=== PATIENT | male | born 1960 | race Caucasian/White ===

== ENCOUNTER 2021-05-12 12:58 | Observation (INO) | payer OTHER, SELFPAY ==
[2021-05-12] VITALS (14 sets, daily range): BP systolic 118–168; BP diastolic 62–98; PULSE 94–108; RESP 20–34; TEMP 36.4–36.7; O2SAT 86–100
--- NOTE | ~2021-05-12 | XR_ITS ---
EXAMINATION: XR chest 1V portable EXAM DATE: 05/12/2021 13:23 INDICATION: Difficulty breathing. History COPD. TECHNIQUE: Portable AP frontal chest x-ray was obtained. There is no prior study for comparison. FINDINGS: The lungs are hyperinflated which can be seen with chronic obstructive pulmonary disease (a clinical diagnosis of functional impairment), but is not diagnostic of it. The cardiomediastinal rasheed houette is prominent but magnified on this AP technique. No confluent consolidation, pneumothorax or pleural effusion suspected. Old right clavicular fracture. IMPRESSION: 1. Cardiomegaly. 2. Hyperinflation. Reviewed, dictated and finalized at location A.
--- NOTE | 2021-05-12 13:17 | ECG_ITS ---
Measurements Intervals [place] Rate: 99 P: 85 IN: 128 QRS: -20 QRSD: 110 T: 86 QT: 366 QTc: 471 Interpretive Statements SINUS RHYTHM INTRAVENTRICULAR CONDUCTION DELAY DELAYED PRECORDIAL R/S TRANSITION MINIMAL Q WAVES- INFERIOR LEADS NONSPECIFIC T-WAVE ABNORMALITY- HIGH LATERAL LEADS BASELINE ARTIFACT- I, II, III, AVR, AVL, AVF, V1-V6 BORDERLINE ECG Electronically Signed On 05-14-2021 17:02:14 CDT by Mamadou Burroughs D.O.
[2021-05-12] MEDS: IPRATROPIUM BR 0.02% INH SOLN 0.5 MG/2.5 ML VIAL INHALATION ×2 (13:34→21:12)
[2021-05-12] MEDS: ALBUTEROL SULFATE NEB 2.5 MG/0.5 ML INH 5 MG INHALATION ×2 (13:34→21:04)
--- NOTE | 2021-05-12 13:35 | ED.SOB ---
HPI - SOB/Dyspnea General Chief Complaint: Shortness of Breath/Dyspnea Stated Complaint: sob Time Seen by Provider: 05/12/21 13:13 History of Present Illness HPI Narrative: Patient is a 60-year-old male who presents ER with shortness of breath. Worsening over the last couple weeks. Associate with productive cough. Sputum is green. Reports night sweats. No documented fevers. Denies sinus congestion or sore throat. Has been using nebulizer treatments at home without relief. Patient has known COPD. Patient did not receive Covid vaccination. No known sick contacts. Related Data Allergies Allergy/AdvReac Type Severity Reaction Status Date / Time No Known Allergies Allergy Verified 05/12/21 13:23 Review of Systems Review of Systems: All systems reviewed & are unremarkable except as noted in HPI and below Constitutional: Constitutional: Denies chills, Reports fatigue and Denies fever(s) Comments: Night sweats ENT: Denies nasal congestion and Denies sore throat Cardiovascular: Cardiovascular: Denies chest pain, Denies rapid heart rate and Denies radiating jaw, neck or arm pain Respiratory: Respiratory: Reports chest congestion, Reports cough, Reports dyspnea and Reports wheezing Gastrointestinal: Gastrointestinal: Denies abdominal pain, Denies nausea and Denies vomiting PMFSH Past Medical History Medical History (Updated 05/12/21 @ 16:41 by Chase Stanford MD) COPD (chronic obstructive pulmonary disease) Surgical History Surgical History (Updated 05/12/21 @ 13:37 by Chase Stanford MD) No pertinent past surgical history Social History Social History (Updated 05/12/21 @ 13:38 by Chase Stanford MD) Smoking status: Current every day smoker Gender identity (if verbalized by the patient): Male Exam Narrative: Exam Narrative: GENERAL: Uncomfortable appearing and diaphoretic, well-nourished. HEAD: Normocephalic, atraumatic. ENT: Mucous membranes moist. CHEST: Mild respiratory distress with diffuse rails/wheezing. HEART: Tachycardic regular. Normal peripheral pulses. ABDOMEN: Soft, nontender, nondistended. EXTREMITIES: Normal range of motion. No edema. SKIN: Warm, diaphoretic, no rash. NEURO: Alert and oriented x3. PSYCH: Normal mood and affect. Course Course Emergency Course: Hypoxic after nebulizer treatment as well. Admit for observation and IV steroids. Vital Signs Vital signs: Vital Signs Temperature 97.6 F 05/12/21 13:18 Pulse Rate 102 H 05/12/21 13:18 Respiratory Rate 24 H 05/12/21 13:18 Blood Pressure 118/62 05/12/21 13:18 Pulse Oximetry 88 L 05/12/21 13:18 Temperature 97.6 F 05/12/21 13:18 Pulse Rate 99 05/12/21 16:18 Respiratory Rate 22 H 05/12/21 16:18 Blood Pressure 130/82 05/12/21 16:18 Pulse Oximetry 92 05/12/21 16:18 MDM - SOB/Dyspnea Lab Data Result diagrams: 05/12/21 14:03 05/12/21 14:02 Labs: Lab Results 05/12/21 05/12/21 05/12/21 Range/Units 14:02 14:03 14:28 WBC 10.0 (4.5-10.0) K/mm3 RBC 5.44 (4.6-6.20) M/mm3 Hgb 16.7 (14.0-18.0) g/dL Hct 52.1 H (42.0-52.0) % MCV 95.8 (80-100) fl MCH 30.7 (26-34) pg MCHC 32.1 (32-36) g/dl RDW 13.9 (11.5-14.5) % Plt Count 356 (150-375) k/mm3 MPV 9.6 (7.4-10.4) fl Immature Gran % (Auto) 0.4 (0-0.5) % Neut % (Auto) 72.5 (45.5-73.1) % Lymph % (Auto) 15.8 L (18.3-44.2) % [place] % (Auto) 10.6 H (2.6-8.5) % Eos % (Auto) 0.4 (0-4.4) % Baso % (Auto) 0.3 (0.2-1.2) % Lymph # (Auto) 1.58 (0.9-3.2) K/mm3 [place] # (Auto) 1.1 H (0.1-0.6) K/mm3 Eos # (Auto) 0.0 (0-0.3) K/mm3 Baso # (Auto) 0.0 (0.0-0.1) K/mm3 Abs Immat Gran (auto) 0.04 H (0.00-0.031) K/mm3 Absolute Neuts (auto) 7.2 H (1.3-6.7) K/mm3 Absolute Nucleated RBC 0.0 (0.0-0.012) K/mm3 Nucleated RBC % 0.0 (0.0-0.2) % Sodium 144 (137-145) mmol/L Potassium 3.8 (3.4-5.0) mmol/L Chloride 102 (98-
[2021-05-12] MEDS: IPRATROPIUM BR 0.02% INH SOLN 0.5 MG/2.5 ML VIAL 1.5 MG INHALATION (13:52)
[2021-05-12] MEDS: ALBUTEROL SULFATE NEB 2.5 MG/0.5 ML INH 15 MG INHALATION (13:52)
[2021-05-12 14:10] LABS: Basophils Percent Auto 0.3 % (0.2-1.2); Eosinophils Percent Auto 0.4 % (0-4.4); Hematocrit 52.1 % (42.0-52.0); Hemoglobin 16.7 g/dL (14.0-18.0); Immature Granulocyte Absolute 0.04 K/mm3 (0.00-0.031); Immature Granulocyte Percent A 0.4 % (0-0.5); Lymphocytes Absolute Auto 1.58 K/mm3 (0.9-3.2); Lymphocytes Percent Auto 15.8 % (18.3-44.2); Mean Corpuscular HGB Conc 32.1 g/dl (32-36); Mean Corpuscular Hemoglobin 30.7 pg (26-34); Mean Corpuscular Volume 95.8 fl (80-100); Mean Platelet Volume 9.6 fl (7.4-10.4); Monocytes Absolute Auto 1.1 K/mm3 (0.1-0.6); Monocytes Percent Auto 10.6 % (2.6-8.5); Neutrophils Absolute Auto 7.2 K/mm3 (1.3-6.7); Neutrophils Percent Auto 72.5 % (45.5-73.1); Platelet Count Result 356 k/mm3 (150-375); Red Blood Count 5.44 M/mm3 (4.6-6.20); Red Cell Distribution Width 13.9 % (11.5-14.5)
[2021-05-12 14:23] LABS: Anion Gap 12 mmol/L (8-16); Blood Urea Nitrogen 8 mg/dL (9-20); Calcium 9.2 mg/dL (8.4-10.2); Carbon Dioxide 30 mmol/L (22-30); Chloride 102 mmol/L (98-107); Estimated CRCL calculation 113 ml/min; Estimated Glomerular Filt Rate > 60; Glucose 136 mg/dL (75-110); Potassium 3.8 mmol/L (3.4-5.0); Sodium 144 mmol/L (137-145)
[2021-05-12 14:44] LABS: Lactic Acid Reflex 0.7 mmol/L (0.7-2.1)
[2021-05-12] MEDS: methylPREDNISolone SOD SUCC 125 MG VIAL IV PUSH (15:15)
--- NOTE | 2021-05-12 15:33 | PC.NURSE ---
ORDERED MEAL FOR PT
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
[2021-05-12 17:03] LABS: Alveolar/Arterial O2 Gradient 70.5 mmHg; Carboxyhemoglobin 4.1 % THb (0-2.0); Fractional Inspired Oxygen 28 %; HCO3 ABG 33.7 mEq/l (22.0-26.0); Methemoglobin ABG 0.3 %THb (0-1.5); Oxygen Content ABG 20.2 %vol (16.0-22.0); PO2 ABG 52.1 mmHg (80.0-100.0); PO2 FiO2 Ratio Arterial Blood 1.86 %; Reduced Hemoglobin 11.6 %THb (0-5.0); Total Hemoglobin 17.2 g/dL (12.0-18.0)
[2021-05-12 17:06] LABS: Oxygen Saturation ABG 83.4 % (95.0-100.0); PCO2 ABG 65.3 mmHg (35.0-45.0)
[2021-05-12 17:07] LABS: Site Drawn RIGHT BRACHIAL
[2021-05-12 17:08] LABS: Device NASAL CANNULA
--- NOTE | 2021-05-12 17:51 | PC.NURSE ---
This patient, Alonzo Michel, was admitted to [facility] Surg Room 327-01. Patient/family oriented to hospital policies and general routines including ID bracelet, bed and alarms, visiting hours, pain management, procedures, bathroom and other care routines, personal items, smoking policy, room service/diet, and visiting hours. Information on how to activate the Rapid Response Team has been discussed. Patient/Family are encouraged to report perceived risks to care and to ask questions if they do not understand what they are told or what they should do.
[2021-05-12] MEDS: methylPREDNISolone SOD SUCC 125 MG VIAL 60 MG IV PUSH (20:24)
[2021-05-12] MEDS: guaiFENesin 12 HR 600 MG TABCR PO (22:34)
[2021-05-12] MEDS: AMOXICILLIN/CLAVULANATE K 875-125 MG TAB 1 TABLET PO (22:36)
[2021-05-12] MEDS: THIAMINE HCL 200 MG/2 ML VIAL 100 MG IV PUSH (22:36)
[2021-05-13] VITALS (11 sets, daily range): BP systolic 120; BP diastolic 88; PULSE 99–119; RESP 20; TEMP 36.1; O2SAT 90–93
[2021-05-13] MEDS: IPRATROPIUM BR 0.02% INH SOLN 0.5 MG/2.5 ML VIAL INHALATION ×2 (02:44→07:53)
[2021-05-13] MEDS: ALBUTEROL SULFATE NEB 2.5 MG/0.5 ML INH 5 MG INHALATION ×2 (02:44→07:53)
[2021-05-13] MEDS: methylPREDNISolone SOD SUCC 125 MG VIAL 60 MG IV PUSH ×2 (03:27→09:36)
[2021-05-13 06:28] LABS: Hematocrit 50.4 % (42.0-52.0); Hemoglobin 16.1 g/dL (14.0-18.0); Mean Corpuscular HGB Conc 31.9 g/dl (32-36); Mean Corpuscular Hemoglobin 31.3 pg (26-34); Mean Corpuscular Volume 97.9 fl (80-100); Mean Platelet Volume 9.5 fl (7.4-10.4); Platelet Count Result 353 k/mm3 (150-375); Red Blood Count 5.15 M/mm3 (4.6-6.20); Red Cell Distribution Width 13.5 % (11.5-14.5); White Blood Count 11.5 K/mm3 (4.5-10.0)
[2021-05-13 07:29] LABS: Alanine Aminotransferase 21 U/L (4-50); Albumin Level 4.2 g/dL (3.5-5.1); Alkaline Phosphatase 94 U/L (38-126); Anion Gap 11 mmol/L (8-16); Aspartate Amino Transferase 21 U/L (17-59); Bilirubin,Total 0.2 mg/dL (0.2-1.3); Blood Urea Nitrogen 15 mg/dL (9-20); Calcium 9.6 mg/dL (8.4-10.2); Carbon Dioxide 26 mmol/L (22-30); Chloride 105 mmol/L (98-107); Estimated CRCL calculation 100 ml/min; Estimated Glomerular Filt Rate > 60; Glucose 142 mg/dL (75-110); Magnesium 2.2 mg/dL (1.6-2.3); Potassium 4.8 mmol/L (3.4-5.0); Sodium 142 mmol/L (137-145)
[2021-05-13] MEDS: AMOXICILLIN/CLAVULANATE K 875-125 MG TAB 1 TABLET PO (09:35)
[2021-05-13] MEDS: guaiFENesin 12 HR 600 MG TABCR PO (09:35)
[2021-05-13] MEDS: FOLIC ACID 1 MG TABLET PO (09:35)
[2021-05-13] MEDS: THIAMINE HCL 100 MG TABLET PO (09:36)
[2021-05-13] MEDS: THERAPEUTIC MULTIVITAMINS/MINERALS TAB (*BKC) 1 TABLET PO (09:36)
--- NOTE | 2021-05-13 10:06 | PM.DS ---
DS: Admitting Diagnosis Admitting Diagnosis Admitting Diagnosis: COPD Exacerbation DS: Discharge Diagnosis Discharge Diagnosis (1) Acute exacerbation of chronic obstructive airways disease: Code(s): J44.1 - Chronic obstructive pulmonary disease with (acute) exacerbation Status: Acute (2) Tobacco dependence: Code(s): F17.200 - Nicotine dependence, unspecified, uncomplicated Status: Acute (3) Cardiomegaly: Code(s): I51.7 - Cardiomegaly Status: Acute (4) Hypoxia: Code(s): R09.02 - Hypoxemia Status: Acute (5) Alcohol abuse: Code(s): F10.10 - Alcohol abuse, uncomplicated Status: Acute DS: Summary Hospital Course Reason for hospitalization: Dyspnea Hospital Course: Date of admission: 05/12/21 Date of discharge: 05/13/21 Alonzo Michel is a pleasant 60-year-old male smoker with COPD and alcohol abuse who presented to the emergency department on 05/12/21 with complaints of shortness of breath. He has chronic FERRERA and is not very ambulatory due to this. His dyspnea worsened over the past several weeks and over the past 2-3 days prior to admission, he was frequently using his albuterol inhaler to the point where he ran out. Upon presentation to the emergency department, he was noted to be hypoxic down to 88%, he was mildly tachypneic and tachycardic, afebrile, CBC and BMP unremarkable, and CXR showed cardiomegaly with hyperinflation. He was admitted to the hospitalist service for further evaluation and management. He was treated with IV solumedrol and nebulized breathing treatments. He was also started on Augmentin given new onset of purulent sputum. His wheezing improved and he will continue a PO prednisone course for 5 days. He was prescribed albuterol and guaifenesin as well. Continue augmentin to complete 7 day course. He was weaned from supplemental O2 and home oxygen evaluation was performed with no oxygen requirements at rest or with activity. Regarding his cardiomegaly, an echocardiogram was ordered though this was not able to be completed due to the weekend. He will need to arrange this as an outpatient, as we discussed. I educated him on smoking cessation for 7 minutes and he verbalized understanding. He did express interest in quitting smoking. Additionally, he drinks 5-10 beers nightly about 5 days a week. 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 He is trying to remove himself from the work situation and feels this will help him stop smoking and drinking. He did not have any alcohol withdrawal symptoms and was monitored with CIWA scores. He was started on thiamine and folic acid daily. The patient had to leave promptly to attend a memorial for his who recently passed. He was feeling better and wheezing significantly improved. We discussed at length worrisome signs and symptoms for which to return. He was informed to immediately return to the ER should any of his symptoms worsen. He does not have a primary care provider and needs to establish. He was given contact information for the on-call primary care physician and he states he will call first thing Friday to make an appointment. He was discharged in hemodynamically stable condition on 05/13/21. Status at Discharge Functional status at discharge: independent ambulation Overall status at discharge: patient is progressing back to baseline Time Spent with Patient Time attestation: Total time spent providing and/or coordinating discharge services: 45 minutes Time spent: Greater than 30 minutes Exam Narrative: Exam Narrative: Mr. Michel is a well-nourished, well-appearing 60-year-old male who is sitting up in bed. He appears comfortable and is in NARD. Neuro: awake, alert and oriented x4, speech clear, no focal neuro deficits noted HEENMT: normocephalic, atraumatic, EOMI, sclerae anicteric, moist oral mucosa, tongue midline, nares patent Neck: supple, no lymphadenopathy Respiratory: post expir
== END 2021-05-13 10:27 | disposition home or self-care (01) ==
LOC: ANHED 13:28 → ANH3MEDSUR 16:26
PROVIDERS: Physician Assistant; Admitting Provider Internal Medicine; Emergency Provider Emergency Medicine; PCP Family Medicine; Visit Provider Physician Assistant
DX: J44.1 Chronic obstructive pulmonary disease with (acute) exacerbation (principal); R06.02 Shortness of breath; J44.9 Chronic obstructive pulmonary disease, unspecified; F17.210 Nicotine dependence, cigarettes, uncomplicated; I51.7 Cardiomegaly; F10.10 Alcohol abuse, uncomplicated; R09.02 Hypoxemia
CPT/HCPCS: 36415; 36600; 71045; 80048; 80053; 82375; 82805; 83050; 83605; 83735; 85025; 85027; 93005; 94618; 94640; 96374; 96375; 96376; 99285; A9270; G0378; G0379; J2930; J3411

== ENCOUNTER 2021-05-14 10:52 | Inpatient (IN) | payer OTHER, SELFPAY ==
[2021-05-14] VITALS (50 sets, daily range): BP systolic 112–221; BP diastolic 80–155; PULSE 76–128; RESP 13–34; TEMP 36.2–36.6; O2SAT 83–100; BMI 34.9
--- NOTE | ~2021-05-14 | XR_ITS ---
XR chest ET placement DATE: 05/14/2021 18:02 INDICATION: Endotracheal tube insertion. Shortness of breath. TECHNIQUE: Portable AP chest on 05/14/2021 at 1757 hours COMPARISON: 05/14/2021 AP and lateral chest FINDINGS: Tip of ET tube is at least 6.2 cm above fide; ideal range is 2-5 cm. An NG tube is noted as far as the distal esophagus at the lower margin of the radiograph. Heart size appears normal. There is respiratory motion which limits evaluation of the lungs. Infiltra te or atelectasis in the lower lung zones is suggested, left greater than right. IMPRESSION: ET tube at least 6.2 cm above fide Reviewed, dictated and finalized at [facility]. Reviewed, dictated and finalized at location A.
--- NOTE | ~2021-05-14 | XR_ITS ---
XR abdomen NG/feed tube insert DATE: 05/14/2021 18:02 INDICATION: NG tube placement TECHNIQUE: Portable AP view on 05/14/2021 at 1756 hours COMPARISON: None FINDINGS: The NG tube extends approximately 5.5 cm into the gastric fundus, the proximal port in the lower chest. Advancement of the tube is recommended. Bilateral excretion of contrast material is noted. IMPRESSION: NG tube in gastric fundus with proximal port still in the lower chest; advancement is rec ommended Reviewed, dictated and finalized at [facility]. Reviewed, dictated and finalized at location A. IMPRESSION: NG tube in gastric fundus with proximal port still in the lower [address]; advancement is recommended
--- NOTE | ~2021-05-14 | XR_ITS ---
EXAMINATION: XR abdomen obstructive series DATE: 05/21/2021 09:09 INDICATION: Evaluate for ileus. TECHNIQUE: Supine and upright views of the abdomen. FINDINGS: 05/14/2021 The visualized lung parenchyma is normal.. There is a nonobstructive bowel gas pattern. Gas and stool are seen throughout the colon to the level of the rectum. There is no free air. NG tube in the stom ach. Lung bases are unremarkable. IMPRESSION: 1. No acute abdominal abnormality. Reviewed, dictated and finalized at location B.
--- NOTE | ~2021-05-14 | XR_ITS ---
EXAMINATION: XR chest 2V DATE: 05/14/2021 13:44 INDICATION: Shortness of breath TECHNIQUE: frontal and lateral views of the chest were obtained. COMPARISON: Chest radiograph dated 05/12/[address] dated 05/14/2021 FINDINGS: Mild opacities at the bilateral lung bases and favor atelectasis or minimal pulmonary edema over pneu monia. Additional atelectasis at the lingula and right middle lobe along side a small anterior paraca rdial fat pads. No other airspace opacities, pleural effusion or pneumothorax. Borderline heart size accounting for AP technique. Old fracture deformity at the lateral right clavicular diaphysis. Mild t o moderate thoracic spondylosis. IMPRESSION: 1. Mild bibasilar opacities and favor atelectasis over mild pulmonary edema or less likely pneumonia. 2. Borderline heart size. Reviewed, dictated and finalized at location A.
--- NOTE | ~2021-05-14 | XR_ITS ---
EXAMINATION: XR chest 1V portable DATE: 05/21/2021 05:23 INDICATION: COPD exacerbation. Acute respiratory failure. TECHNIQUE: frontal view of the chest was obtained. COMPARISON: Chest radiograph dated 05/20/2021 FINDINGS: Endotracheal tube tip 6.0 cm above the fide. Nasogastric tube extends below the left hemidiaphragm with distal tip collimated off the study. Unchanged mild right basilar opacities. No pneumothorax or definitive pleural effusion. The cardiomed iastinal silhouette is normal. IMPRESSION: 1. Unchanged mild right basilar opacities, most likely atelectasis although pneumonia not excludable. Reviewed, dictated and finalized at location A. IMPRESSION: 1. Unchanged mild right basilar opacities, most likely atelectasis although pne umonia not excludable.
--- NOTE | ~2021-05-14 | CT_ITS ---
EXAMINATION: CTA chest PE protocol DATE: 05/19/2021 11:04 INDICATION: Hypoxia and pneumonia TECHNIQUE: Computed tomography angiography (CTA) of the chest was performed with 100 mL Omnipaque-350 intravenous contrast timed to evaluate the pulmonary arteries. Coronal maximum intensity projection 3D-reconstructions were created by the technologist. The dose-length product (DLP) was 880.23 mGy-cm. Automated exposure control and iterative reconstruction technique were employed. COMPARISON: 05/14/2021 FINDINGS: The pulmonary arteries are well-opacified. No pulmonary embolism is identified. Sensitivity in the lung bases is somewhat limited by respiratory motion artifact. The endotracheal tube is appro ximately 8 cm above the fide. The nasogastric tube is in the stomach. No pathologically enlarged th oracic lymph nodes are identified. The heart size is normal. There is dependent atelectasis. No focal airspace opacities are identified. There is no pleural effusion or pneumothorax. There is mild thora cic spondylosis. IMPRESSION: 1. No pulmonary embolus identified, sensitivity limited by respiratory motion artifact in the lung ba ses. 2. Mild atelectasis. Reviewed, dictated and finalized at location A. IMPRESSION: 1. No pulmonary embolus identified, sensitivity limited by respiratory motion a rtifact in the lung bases. 2. Mild atelectasis.
--- NOTE | ~2021-05-14 | XR_ITS ---
XR chest 1V portable 05/16/2021 05:25 Indication: Respiratory failure. Procedure: AP portable chest Comparison: Comparison to multiple prior studies sequentially, with oldest reviewed study dated 05/12. Findings: Endotracheal tube tip 8.3 cm above the fide. Cardiomegaly. Interstitial edema. NG tube in the stomach. Small pleural effusions. No pneumothorax. N o acute osseous abnormality. Impression: 1: Cardiomegaly with mild interstitial edema. Reviewed, dictated and finalized at location A. Impression: 1: Cardiomegaly with mild interstitial edema.
--- NOTE | ~2021-05-14 | XR_ITS ---
XR chest 1V portable 05/15/2021 05:35 Indication: Respiratory failure Procedure: AP portable chest Comparison: Comparison to multiple prior studies sequentially, with oldest reviewed study dated 05/12. Findings: Cardiomegaly. NG tube in the stomach. Endotracheal tube tip approximately 5 cm above the ca praveen. There has been progression of interstitial edema. Possible small effusions. No pneumothorax. Impression: 1: Cardiomegaly with progression of interstitial edema. Reviewed, dictated and finalized at location A. Impression: 1: Cardiomegaly with progression of interstitial edema.
--- NOTE | ~2021-05-14 | CT_ITS ---
EXAMINATION: CT brain wo con DATE: 05/14/2021 16:08 INDICATION: Altered mental state. Confusion. Difficult to arouse. Lethargy. TECHNIQUE: Computed tomography (CT) of the head was performed without intravenous contrast. The mA wa s adjusted according to patient size. Iterative reconstruction technique was employed. Exam dose: 68 1.00 mGy-cm total exam DLP. COMPARISON: None FINDINGS: There is patchy nonspecific diminished attenuation of the subcortical and periventricular c erebral white matter, possibly due to chronic small vessel ischemic changes. Bilateral carotid siphon internal carotid artery calcifications and vertebral artery calcification are noted. No intracranial mass lesion or hemorrhage or recent cerebrovascular accident is evident. No midline s hift or mass effect effect. Normal ventricular size. No subdural or epidural hematoma is detected. No fracture or bone destruction of the cranial vault. Mild focal soft tissue tissue opacification of the right ethmoid air cells and mild medial soft tissu e thickening of the right frontal sinus. The paranasal sinuses and mastoid air cells are otherwise un remarkable. IMPRESSION: Cerebral atherosclerosis and chronic small vessel ischemic changes of the cerebral white matter No acute intracranial finding is noted Reviewed, dictated and finalized at [facility]. Reviewed, dictated and finalized at location A.
--- NOTE | ~2021-05-14 | XR_ITS ---
XR chest 1V portable 05/18/2021 05:16 Indication: Acute respiratory failure Procedure: AP portable chest Comparison: Comparison to multiple prior studies sequentially, with oldest reviewed study dated 05/14. Findings: Endotracheal tube tip 8 cm above the fide. NG tube in the stomach. Cardiomegaly. Mild int erstitial edema. Small right pleural effusion. No pneumothorax. Right basilar atelectasis. Impression: 1: Cardiomegaly with mild interstitial edema. 2: Right basilar atelectasis. Reviewed, dictated and finalized at location A. Impression: 1: Cardiomegaly with mild interstitial edema. 2: Right basilar atelectasis.
--- NOTE | ~2021-05-14 | XR_ITS ---
XR chest 1V portable 05/17/2021 05:28 Indication: Respiratory failure Procedure: AP portable chest Comparison: Comparison to multiple prior studies sequentially, with oldest reviewed study dated 05/14. Findings: Endotracheal tube tip 6.4 cm above the fide. Heart size upper normal. Mild interstitial e silas. Developing bibasilar infiltrates. Small right pleural effusion. No pneumothorax. NG tube is see n, distal aspect not visualized. Impression: 1: Borderline heart size with mild interstitial edema. Developing bibasilar infiltrates may represent atelectasis or pneumonia. 2: Small right pleural effusion. Reviewed, dictated and finalized at location A. Impression: 1: Borderline heart size with mild interstitial edema. Developing bibasilar inf iltrates may represent atelectasis or pneumonia. 2: Small right pleural effusion.
--- NOTE | ~2021-05-14 | XR_ITS ---
EXAMINATION: XR chest 1V portable DATE: 05/22/2021 06:04 INDICATION: Acute respiratory failure and COPD exacerbation TECHNIQUE: frontal view of the chest was obtained. COMPARISON: Chest radiograph dated 05/21/2021 at 5:09 AM FINDINGS: Endotracheal tube tip 8.5 cm above the fide. Nasogastric tube extends below the left hemidiaphragm with distal tip collimated off the study. Mild opacities at the bilateral lung bases consistent with very small bilateral pleural effusions and associated atelectasis and/or pneumonia. Peripheral vascular congestion without hillary pulmonary shirley a. No pneumothorax. The cardiomediastinal silhouette is normal. Old right clavicular fracture deformi ty. IMPRESSION: 1. Endotracheal tube tip 8.5 cm above the fide. Recommend advancement by 6 cm. 2. Mild bibasilar opacities consistent with . Small bilateral pleural effusions and associated atelec tasis and/or pneumonia. Reviewed, dictated and finalized at location A. IMPRESSION: 1. Endotracheal tube tip 8.5 cm above the fide. Recommend advancement by 6 cm . 2. Mild bibasilar opacities consistent with . Small bilateral pleural effusions and associated atelectasis and/or pneumonia.
--- NOTE | ~2021-05-14 | XR_ITS ---
EXAMINATION: XR chest 1V portable INDICATION: Acute respiratory failure TECHNIQUE: Portable AP chest at 0508 hours COMPARISON: 05/19/2021 FINDINGS: The endotracheal tube ends approximately 8.2 cm above the fide. The nasogastric tube is f ollowed as far as the stomach. Its tip is beyond the inferior margin of the radiograph. Right basilar airspace opacities have increased. There is no pleural effusion or pneumothorax. The cardiomediastin al silhouette is stable. IMPRESSION: 1. Increasing right basilar airspace opacity, consistent with atelectasis versus pneumonia. Reviewed, dictated and finalized at location A. IMPRESSION: 1. Increasing right basilar airspace opacity, consistent with atelectasis versu s pneumonia.
--- NOTE | ~2021-05-14 | CT_ITS ---
EXAMINATION: CTA chest PE protocol EXAM DATE: 05/14/2021 13:08 INDICATION: Shortness of breath, elevated d-dimer. Cough. History COPD. TECHNIQUE: Spiral CTA of the chest (pulmonary arteries) was performed with 100 cc Omnipaque 350 intr avenous contrast injection. Images were acquired during the pulmonary arterial phase. Coronal maxi mum intensity projection 3D-reconstructions were created by the technologist on dedicated workstation . Axial, coronal and sagittal reformatted images were reviewed. The dose-length product (DLP) for t his examination was 714.41 mGy-cm. The exposure was tailored according to patient size (auto mA exp osure control), and iterative reconstruction (ASIR) was used as additional dose reduction technique. There is no prior study for comparison. Correlation was made with chest x-ray 05/12/2021. FINDINGS: There are no pulmonary emboli in the 1st through 3rd order (central and interlobar) pulmon елена arteries. There is loss of attenuation in the segmental pulmonary arteries from respiratory motio n, some segmental regions not confidently evaluated. No intraluminal filling defects identified. No thoracic aortic dissection. The lungs are clear. There are no pleural or pericardial effusions. Collapsed appearance to the trachea and mainstem bronchi, could be tracheomalacia. There is no medi astinal, hilar or axillary lymphadenopathy. There is no pneumothorax. There is lipomatous hypertr ophy of the interatrial septum. There is mild coronary arterial calcification, arterial sclerosis. Incompletely imaged left adrenal mass measuring at least 4.6 cm. This could be an adenoma but MRI exa mination without and with contrast is recommended. There is mild thoracic spondylosis without osteob lastic or osteolytic lesions identified. IMPRESSION: 1. Limited segmental evaluation, but no central pulmonary emboli. 2. Evidence of tracheomalacia. 3. Incidental left adrenal mass; follow-up nonemergent MR abdomen without and with contrast. Reviewed, dictated and finalized at location B.
--- NOTE | ~2021-05-14 | XR_ITS ---
EXAMINATION: XR chest 1V portable INDICATION: Acute respiratory failure TECHNIQUE: Portable AP chest at 0741 hours COMPARISON: 05/18/2021 FINDINGS: The endotracheal tube ends approximately 5.9 cm above the fide. The nasogastric tube is f ollowed as far as the stomach. Its tip is beyond the inferior margin of the radiograph. The heart siz e is upper limits of normal for technique. There is a small right pleural effusion with minimal right basilar atelectasis. No pneumothorax is identified. A healed fracture of the right distal clavicle i s noted. IMPRESSION: 1. Small right pleural effusion with mild right basilar atelectasis. Reviewed, dictated and finalized at location A.
--- NOTE | 2021-05-14 11:01 | ECG_ITS ---
Measurements Intervals [place] Rate: 99 P: 80 NM: 151 QRS: -13 QRSD: 106 T: 88 QT: 344 QTc: 443 Interpretive Statements SINUS RHYTHM DELAYED PRECORDIAL R/S TRANSITION NONSPECIFIC T-WAVE ABNORMALITY- HIGH LATERAL LEADS BASELINE WANDER- I, V3-V5 BORDERLINE ECG Electronically Signed On 05-14-2021 13:09:27 CDT by Mamadou Burroughs D.O.
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
[2021-05-14 11:21] LABS: Basophils Percent Auto 0.2 % (0.2-1.2); Eosinophils Percent Auto 0.1 % (0-4.4); Hematocrit 48.2 % (42.0-52.0); Hemoglobin 15.2 g/dL (14.0-18.0); Immature Granulocyte Absolute 0.16 K/mm3 (0.00-0.031); Immature Granulocyte Percent A 0.9 % (0-0.5); Lymphocytes Absolute Auto 3.13 K/mm3 (0.9-3.2); Lymphocytes Percent Auto 16.7 % (18.3-44.2); Mean Corpuscular HGB Conc 31.5 g/dl (32-36); Mean Corpuscular Hemoglobin 31.3 pg (26-34); Mean Corpuscular Volume 99.2 fl (80-100); Mean Platelet Volume 9.4 fl (7.4-10.4); Monocytes Absolute Auto 1.8 K/mm3 (0.1-0.6); Monocytes Percent Auto 9.5 % (2.6-8.5); Neutrophils Absolute Auto 13.6 K/mm3 (1.3-6.7); Neutrophils Percent Auto 72.6 % (45.5-73.1); Platelet Count Result 332 k/mm3 (150-375); Red Blood Count 4.86 M/mm3 (4.6-6.20); Red Cell Distribution Width 14.4 % (11.5-14.5); White Blood Count 18.7 K/mm3 (4.5-10.0)
[2021-05-14] MEDS: ALBUTEROL SULFATE NEB 2.5 MG/0.5 ML INH INHALATION (11:25)
[2021-05-14] MEDS: IPRATROPIUM BR 0.02% INH SOLN 0.5 MG/2.5 ML VIAL INHALATION ×2 (11:25→20:34)
[2021-05-14 11:30] LABS: Anion Gap 7 mmol/L (8-16); Blood Urea Nitrogen 21 mg/dL (9-20); Calcium 8.7 mg/dL (8.4-10.2); Carbon Dioxide 28 mmol/L (22-30); Chloride 108 mmol/L (98-107); Estimated CRCL calculation 72 ml/min; Estimated Glomerular Filt Rate > 60; Glucose 89 mg/dL (75-110); Potassium 4.5 mmol/L (3.4-5.0); Sodium 143 mmol/L (137-145)
[2021-05-14] MEDS: methylPREDNISolone SOD SUCC 125 MG VIAL IV PUSH (11:50)
[2021-05-14 11:53] LABS: D Dimer 0.91 ug/mL (<0.48)
[2021-05-14 12:04] LABS: NT Pro B Type Natriuretic Pept 1020 pg/mL (5-100); Troponin I 0.062 ng/mL (0.000-0.034)
[2021-05-14] MEDS: LORazepam INJ (*CRX) 2 MG/ML VIAL 1 MG IV PUSH (12:26)
--- NOTE | 2021-05-14 13:06 | PC.NURSE ---
pt continues to remove monitoring devices. pt reports feeling anxious and very hot . pt afebrile. slightly more relaxed after iv ativan. pt agrees to attempt ct
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
[2021-05-14 14:20] LABS: Alveolar/Arterial O2 Gradient 120.2 mmHg; Base Excess ABG 0.7 mEq/l (+/-2.0); Fractional Inspired Oxygen 36 %; HCO3 ABG 29.6 mEq/l (22.0-26.0); Oxygen Content ABG 19.7 %vol (16.0-22.0); Oxygen Saturation ABG 87.2 % (95.0-100.0); PO2 ABG 60.5 mmHg (80.0-100.0); PO2 FiO2 Ratio Arterial Blood 1.68 %; Total Hemoglobin 16.1 g/dL (12.0-18.0)
[2021-05-14 14:22] LABS: Device NASAL CANNULA; Modified Allen's Test Pass; PCO2 ABG 65.5 mmHg (35.0-45.0); Site Drawn RIGHT RADIAL; pH ABG 7.273 (7.350-7.450)
--- NOTE | 2021-05-14 14:50 | PC.NURSE ---
called to room by classified ad clerk due to pt being lethargic. bent over in bed with bipap in place. pt difficult to arouse. eye opening with deep sternal rub. edp notified and at bedside. repeat abgs ordered.
[2021-05-14 15:02] LABS: Troponin I 0.051 ng/mL (0.000-0.034)
[2021-05-14 15:07] LABS: Alveolar/Arterial O2 Gradient 167.5 mmHg; Carboxyhemoglobin 3.4 % THb (0-2.0); Fractional Inspired Oxygen 60 %; HCO3 ABG 30.4 mEq/l (22.0-26.0); Methemoglobin ABG 0.3 %THb (0-1.5); Oxygen Content ABG 21.7 %vol (16.0-22.0); PO2 ABG 184.2 mmHg (80.0-100.0); PO2 FiO2 Ratio Arterial Blood 3.07 %; Reduced Hemoglobin 1.3 %THb (0-5.0)
[2021-05-14 15:08] LABS: Device NON-INVASIVE VENT; Modified Allen's Test Unable to perform; Non-Invasive Expiratory Pressure 8 CMH2O; Non-Invasive Inspiratory Pressure 14 CMH2O; Non-Invasive Vent Rate 4 /MIN; PCO2 ABG 69.2 mmHg (35.0-45.0); Site Drawn RIGHT RADIAL
[2021-05-14 16:26] LABS: Amphetamine Screen Urine Negative (Negative); Barbiturate Screen Urine Negative (Negative); Benzodiazepines Screen Urine Negative (Negative); Cannabinoid Screen Urine Negative (Negative); Cocaine Screen Urine Positive (Negative); Methadone Screen Urine Negative (Negative); Opiate Screen Urine Negative (Negative); Phencyclidine Screen Urine Negative (Negative)
[2021-05-14 16:50] LABS: Alveolar/Arterial O2 Gradient 55.7 mmHg; Base Excess ABG 1.7 mEq/l (+/-2.0); Fractional Inspired Oxygen 30 %; HCO3 ABG 31.8 mEq/l (22.0-26.0); Oxygen Content ABG 20.6 %vol (16.0-22.0); Oxygen Saturation ABG 90.5 % (95.0-100.0); Oxyhemoglobin 89.6 % THb (90.0-100.0); PO2 ABG 70.1 mmHg (80.0-100.0); PO2 FiO2 Ratio Arterial Blood 2.34 %; Total Hemoglobin 16.4 g/dL (12.0-18.0)
[2021-05-14 16:52] LABS: Device NON-INVASIVE VENT; Modified Allen's Test Pass; Site Drawn RIGHT RADIAL; pH ABG 7.245 (7.350-7.450)
[2021-05-14 16:53] LABS: Non-Invasive Inspiratory Pressure 18 CMH2O; Non-Invasive Vent Rate 16 /MIN
[2021-05-14 16:54] LABS: Non-Invasive Expiratory Pressure 6 CMH2O
[2021-05-14] MEDS: RAPID SEQUENCE INTUBATION KIT 1 EACH (17:11)
--- NOTE | 2021-05-14 17:14 | PC.NURSE ---
1711-20 MG ETOMIDATE IV 1712-100 MG SUCCINYLCHOLINE IV 1714- INTUBATED WITH 7.5 ETT. TUBE 23 CM AT LIP. POSITIVE COLOR CHANGE WITH CO2 DETECTOR. COMMERICIAL DEVICE TO SECURE TUBE. PT LIAT WELL. VENT SETTINGS PER RESP THERAPY
[2021-05-14] MEDS: PROPOFOL IV EMULSION 100 ML 3.4 MG (17:25)
--- NOTE | 2021-05-14 17:25 | PC.NURSE ---
50 mg propofol pulled from drip and given iv push prior to starting infusion. pt agitated and pulling at all tubes
--- NOTE | 2021-05-14 18:06 | PC.NURSE ---
50 mg propofol iv from rsi kit due to persistent agitation and restlessness. propofol drip increased t 6.8 cc/hr via pump
[2021-05-14] MEDS: MIDAZOLAM HCL (*CRX) 2 MG/2 ML VIAL 4 MG IV PUSH (18:27)
--- NOTE | 2021-05-14 18:33 | PC.NURSE ---
ett advanced based on xray. now at 25 cm at lip.
[2021-05-14 18:37] LABS: Phosphorus 4.2 mg/dL (2.5-4.5)
[2021-05-14 18:42] LABS: Alveolar/Arterial O2 Gradient 239.1 mmHg; Base Excess ABG -0.9 mEq/l (+/-2.0); Fractional Inspired Oxygen 75 %; HCO3 ABG 29.9 mEq/l (22.0-26.0); Oxygen Content ABG 22.3 %vol (16.0-22.0); Oxygen Saturation ABG 99.2 % (95.0-100.0); Oxyhemoglobin 96.2 % THb (90.0-100.0); PO2 ABG 212.4 mmHg (80.0-100.0); PO2 FiO2 Ratio Arterial Blood 2.83 %; Total Hemoglobin 16.2 g/dL (12.0-18.0)
[2021-05-14 18:45] LABS: PCO2 ABG 78.4 mmHg (35.0-45.0); Site Drawn RIGHT RADIAL; pH ABG 7.199 (7.350-7.450)
[2021-05-14 18:46] LABS: Arterial Blood Gas PEEP 5 cmH2O; Arterial Blood Gas Tidal Volume 400 ml; Arterial Blood Gas Vent Mode CMV; Arterial Blood Gas Ventilator rate 26 /MIN; Device VENTILATOR; Modified Allen's Test Unable to perform
[2021-05-14 18:55] LABS: Procalcitonin 0.1 ng/mL
--- NOTE | 2021-05-14 18:55 | PC.NURSE ---
1828-propofol drip increased to 50 mg/kg/hr per ed physician request
--- NOTE | 2021-05-14 19:32 | PC.NURSE ---
Aunt and daughter are present at bedside. Both updated on poc and all questions and concerns addressed. Pt remains sedated and calm with stable vitals.
--- NOTE | 2021-05-14 19:46 | PC.NURSE ---
Report called to Jessica. Iván to send pt to floor. Respiratory called for pt transport to floor and states someone will be down shortly.
--- NOTE | 2021-05-14 19:50 | PC.NURSE ---
Respiratory presented to bedside for pt transport.
[2021-05-14] MEDS: PROPOFOL IV EMULSION 100 ML 16.05 MG IV CONT (20:15)
[2021-05-14] MEDS: methylPREDNISolone SOD SUCC 125 MG VIAL 60 MG IV PUSH ×2 (20:24→23:32)
[2021-05-14] MEDS: FOLIC ACID 1 MG/0.2 ML INJ IV PUSH (20:29)
[2021-05-14] MEDS: THIAMINE HCL 200 MG/2 ML VIAL 100 MG IM (20:30)
[2021-05-14] MEDS: ALBUTEROL SULFATE NEB 2.5 MG/0.5 ML INH 5 MG INHALATION (20:34)
--- NOTE | 2021-05-14 20:39 | PC.NURSE ---
ED called for report at 194. Report given by telephone by ALEJANDRO Mendez with the ED department. All questions answered and plan of care reviewed. Patient to be admitted to ICU bed 3.
--- NOTE | 2021-05-14 20:41 | ADMGEN ---
This patient, Alonzo Michel, was admitted to Intensive Care Unit-3 at 2015 from the Emergency department. Patient/family oriented to hospital policies and general routines including ID bracelet, bed and alarms, visiting hours, pain management, procedures, bathroom and other care routines, personal items, smoking policy, room service/diet, and visiting hours. Information on how to activate the Rapid Response Team has been discussed. Patient/Family are encouraged to report perceived risks to care and to ask questions if they do not understand what they are told or what they should do.
[2021-05-14] MEDS: FENTANYL 2,500MCG/NS250ML(*CRX 2,500 MCG/250 ML BAG IV CONT (22:38)
--- NOTE | 2021-05-14 22:46 | PC.NURSE ---
Spoke with patients primary contact Leila (patients Aunt), at 1000 p.m by telephone, to obtain additional patient information. Leila unable to give detailed information due to broken relationship with patient. Leila stated that patient is a heavy daily drinker of alcohol but unsure how many drinks a day. Leila also stated that the patient is a heavy smoker 1-2 packs per day and has a known substance abuse disorder including the use and abuse of cocaine. Leila is unsure of patients current medical conditions but states that patient is homeless and frequently checks into [facility] and signs out AMA once stabilized. Last bowel movement is unknown.
[2021-05-14] MEDS: PROPOFOL IV EMULSION 100 ML 25.68 MG IV CONT (23:43)
[2021-05-15] VITALS (43 sets, daily range): BP systolic 93–150; BP diastolic 62–98; PULSE 7–116; RESP 16–30; TEMP 36.3–36.9; O2SAT 90–95; BMI 34.9
[2021-05-15 00:08] LABS: Alveolar/Arterial O2 Gradient 129.5 mmHg; Base Excess ABG 5.1 mEq/l (+/-2.0); Carboxyhemoglobin 0.9 % THb (0-2.0); Fractional Inspired Oxygen 40 %; HCO3 ABG 33.5 mEq/l (22.0-26.0); Methemoglobin ABG 0.2 %THb (0-1.5); Oxygen Content ABG 21.1 %vol (16.0-22.0); Oxygen Saturation ABG 94.9 % (95.0-100.0); Oxyhemoglobin 94.5 % THb (90.0-100.0); PO2 FiO2 Ratio Arterial Blood 2.03 %; Reduced Hemoglobin 4.4 %THb (0-5.0); Total Hemoglobin 15.9 g/dL (12.0-18.0)
[2021-05-15 00:09] LABS: Modified Allen's Test Pass; Site Drawn RIGHT RADIAL
[2021-05-15 00:10] LABS: Arterial Blood Gas PEEP 5 cmH2O; Arterial Blood Gas Tidal Volume 400 ml; Arterial Blood Gas Vent Mode CMV; Arterial Blood Gas Ventilator rate 20 /MIN; Device VENTILATOR
[2021-05-15 02:30] LABS: Glucose Point of Care 143 mg/dl (65-105)
[2021-05-15] MEDS: IPRATROPIUM BR 0.02% INH SOLN 0.5 MG/2.5 ML VIAL INHALATION ×4 (02:42→19:47)
[2021-05-15] MEDS: ALBUTEROL SULFATE NEB 2.5 MG/0.5 ML INH 5 MG INHALATION ×4 (02:42→19:47)
[2021-05-15] MEDS: PROPOFOL IV EMULSION 100 ML 25.68 MG IV CONT (03:45)
[2021-05-15] MEDS: methylPREDNISolone SOD SUCC 125 MG VIAL 60 MG IV PUSH (06:01)
[2021-05-15 06:02] LABS: Hematocrit 47.5 % (42.0-52.0); Hemoglobin 15.2 g/dL (14.0-18.0); Mean Corpuscular Hemoglobin 31.5 pg (26-34); Mean Corpuscular Volume 98.3 fl (80-100); Mean Platelet Volume 9.4 fl (7.4-10.4); Platelet Count Result 329 k/mm3 (150-375); Red Blood Count 4.83 M/mm3 (4.6-6.20); Red Cell Distribution Width 14.1 % (11.5-14.5)
[2021-05-15 06:09] LABS: Alveolar/Arterial O2 Gradient 150.1 mmHg; Base Excess ABG 6.2 mEq/l (+/-2.0); Carboxyhemoglobin 0.6 % THb (0-2.0); Fractional Inspired Oxygen 40 %; HCO3 ABG 32.5 mEq/l (22.0-26.0); Methemoglobin ABG 0.2 %THb (0-1.5); Oxygen Content ABG 20.8 %vol (16.0-22.0); Oxygen Saturation ABG 94.9 % (95.0-100.0); Oxyhemoglobin 94.4 % THb (90.0-100.0); PCO2 ABG 52.7 mmHg (35.0-45.0); PO2 ABG 74.5 mmHg (80.0-100.0); PO2 FiO2 Ratio Arterial Blood 1.86 %; Reduced Hemoglobin 4.8 %THb (0-5.0); Total Hemoglobin 15.7 g/dL (12.0-18.0); pH ABG 7.408 (7.350-7.450)
[2021-05-15 06:10] LABS: Device VENTILATOR; Modified Allen's Test Pass; Site Drawn RIGHT RADIAL
[2021-05-15 06:11] LABS: Arterial Blood Gas PEEP 5 cmH2O; Arterial Blood Gas Tidal Volume 400 ml; Arterial Blood Gas Vent Mode CMV; Arterial Blood Gas Ventilator rate 20 /MIN
[2021-05-15 06:15] LABS: Alanine Aminotransferase 43 U/L (4-50); Albumin Level 3.6 g/dL (3.5-5.1); Alkaline Phosphatase 89 U/L (38-126); Anion Gap 6 mmol/L (8-16); Aspartate Amino Transferase 38 U/L (17-59); Bilirubin,Total 0.3 mg/dL (0.2-1.3); Blood Urea Nitrogen 17 mg/dL (9-20); Calcium 8.7 mg/dL (8.4-10.2); Carbon Dioxide 34 mmol/L (22-30); Chloride 102 mmol/L (98-107); Estimated CRCL calculation 95 ml/min; Estimated Glomerular Filt Rate > 60; Glucose 141 mg/dL (75-110); Magnesium 2.3 mg/dL (1.6-2.3); Potassium 4.4 mmol/L (3.4-5.0); Sodium 142 mmol/L (137-145)
[2021-05-15 07:38] LABS: Glucose Point of Care 139 mg/dl (65-105)
[2021-05-15] MEDS: PROPOFOL IV EMULSION 100 ML 32.1 MG IV CONT ×6 (07:41→22:58)
--- NOTE | 2021-05-15 08:33 | WPDCNINT ---
Assessment and Plan Assessment and plan (1) Acute respiratory failure with hypoxia and hypercapnia: Code(s): J96.01 - Acute respiratory failure with hypoxia; J96.02 - Acute respiratory failure with hypercapnia Status: Acute Assessment and Plan: Acute hypercapnic respiratory failure likely related to COPD exacerbation, interstitial edema -patient was intubated on 05/14/2021 -continue cefepime -continue bronchodilators -sedated with fentanyl and propofol infusion -chest x-ray and ABGs reviewed -currently on peep of 5 and 40% FiO2, ventilator adjusted (2) Acute exacerbation of chronic obstructive airways disease: Code(s): J44.1 - Chronic obstructive pulmonary disease with (acute) exacerbation Status: Acute Assessment and Plan: Continue steroids, bronchodilators, mechanical ventilation -repeat ABGs improving (3) Tobacco dependence: Code(s): F17.200 - Nicotine dependence, unspecified, uncomplicated Status: Acute Assessment and Plan: Unable to provide tobacco cessation counseling at this time. Will do so once patient is awake (4) Alcohol abuse: Code(s): F10.10 - Alcohol abuse, uncomplicated Status: Acute Assessment and Plan: Continue thiamine and folic acid (5) Elevated troponin: Code(s): R77.8 - Other specified abnormalities of plasma proteins Status: Acute Assessment and Plan: Elevated troponins, trending down. Likely related to her acute respiratory failure COPD exacerbation -obtain echocardiogram (6) DVT prophylaxis: Code(s): Z29.9 - Encounter for prophylactic measures, unspecified Status: Acute Assessment and Plan: DVT prophylaxis: Lovenox (7) Dietary counseling and surveillance: Code(s): Z71.3 - Dietary counseling and surveillance Status: Acute Assessment and Plan: Stress ulcer prophylaxis: Protonix Will start tube feeds Additional Plan Will update family Code status: Full code Critical care time spent: 48 minutes This dictation may have been done utilizing a voice recognition system. Attempts have been made to correct errors. However, there may be uncorrected grammatical, spelling, and recognition errors present. Due to a high probability of clinically significant, life threatening deterioration, the patient required my highest level of preparedness to intervene emergently and I personally spent this critical care time directly and personally managing the patient. This critical care time included obtaining a history; examining the patient; pulse oximetry; ordering and review of studies; arranging urgent treatment with development of a management plan; evaluation of patient's response to treatment; frequent reassessment; and discussions with other providers. It was exclusive of separately billable procedures and treating other patients and teaching time. Please see Assessment and Plan section and the rest of the note for further information on patient assessment and treatment Financial Systems Analyst Consult Note Consult date: 05/15/21 Time Seen: 07:03 Reason for consult: Acute respiratory failure, COPD exacerbation HPI: Alonzo Michel is a 60 year old with past medical history of alcohol abuse, COPD, tobacco dependence presented the ED on 05/14/2021 with complains of increasing shortness of breath. Patient was recently discharged from the hospital on 05/13/2021 when he was admitted for COPD exacerbation with hypoxia. Patient had 2010 a moral serum bili of his late who several weeks ago and therefore was discharged on 05/13/2021 on Augmentin, prednisone and albuterol rescue inhaler. After returning home from the [facility] patient was short of breath and presented the ER with diaphoresis and labored breathing. Patient received steroids, nebulizer treatment and was sent to CT scan for a CTA as his troponin and D-dimer was slightly elevated. CT scan did not show any evidence of pul
[2021-05-15] MEDS: FUROSEMIDE INJ 40 MG/4 ML VIAL 20 MG IV PUSH (08:54)
[2021-05-15] MEDS: FOLIC ACID 1 MG/0.2 ML INJ IV PUSH (08:55)
[2021-05-15] MEDS: THIAMINE HCL 200 MG/2 ML VIAL 100 MG IV PUSH (08:55)
[2021-05-15] MEDS: ENOXAPARIN 40 MG/0.4 ML SYRINGE SUB-Q (08:55)
[2021-05-15] MEDS: METOPROLOL SUCCINATE EXT REL 25 MG TABCR PO (08:56)
[2021-05-15] MEDS: LOSARTAN POTASSIUM 25 MG TABLET PO (08:57)
[2021-05-15] MEDS: PANTOPRAZOLE SODIUM IV 40 MG VIAL IV PUSH (09:12)
[2021-05-15] MEDS: methylPREDNISolone SOD SUCC 40 MG VIAL IV PUSH ×3 (11:17→23:48)
[2021-05-15 11:21] LABS: Glucose Point of Care 143 mg/dl (65-105)
--- NOTE | 2021-05-15 15:52 | PM.IMPN ---
Progress Note: A&P Assessment and Plan (1) Acute respiratory failure with hypoxia and hypercapnia: Code(s): J96.01 - Acute respiratory failure with hypoxia; J96.02 - Acute respiratory failure with hypercapnia Status: Acute (2) Acute exacerbation of chronic obstructive airways disease: Code(s): J44.1 - Chronic obstructive pulmonary disease with (acute) exacerbation Status: Acute (3) Cardiomegaly: Code(s): I51.7 - Cardiomegaly Status: Acute (4) Elevated troponin: Code(s): R77.8 - Other specified abnormalities of plasma proteins Status: Acute (5) Tobacco dependence: Code(s): F17.200 - Nicotine dependence, unspecified, uncomplicated Status: Acute (6) Elevated blood pressure reading: Code(s): R03.0 - Elevated blood-pressure reading, without diagnosis of hypertension Status: Acute (7) Alcohol abuse: Code(s): F10.10 - Alcohol abuse, uncomplicated Status: Acute (8) Tracheomalacia: Code(s): J39.8 - Other specified diseases of upper respiratory tract Status: Acute Additional Plan # acute respiratory failrue hypoxic hypercapnic, initially stared onbipap but now intudated. # COPD exacerbation # CHF exaceration: no prior diagnosis. cxr with interstitial edema. # tracheomalacia # elevated troponin # tobacco dependence # Alcohol abuse # DVT proph: lovenox Cocaine positive COVID pending Subjective Date/time seen: 05/15/21 15:52 Interval history: patint intubaed ans edated. on vent full support. no ros could be colleced. dsiucsed with tax services intern of Systems Review of Systems: ROS unobtainable: Yes unobtainable due to endotracheal tube Exam Narrative: Exam Narrative: GENERAL: The patient is well developed, sedad, on vet HEENT:normocephalic and atrumatic HEART: Regular rate and rhythm without murmur, rubs, or gallops LUNGS: equal air entry,on vent full support, no respiratory distress ABDOMEN: Soft, positive bowel sounds, non-tender, no organomegaly. SKIN: No rash, no excessive bruising, petechiae, or purpura. NEUROLOGIC: sedated EXTREMITIES: no edema, cyanosis or clubbing Objective Data Vital Signs Vital Signs: Vital Signs - 24 hr 05/14/21 16:15 06/14/21 17:06 05/14/21 17:20 Temperature Pulse Rate 85 92 126 H Pulse Rate [Monitor] Respiratory Rate 17 17 Blood Pressure 158/96 H Pulse Oximetry 92 93 96 05/14/21 17:25 05/14/21 17:33 05/14/21 17:36 Temperature Pulse Rate 128 H 127 H Pulse Rate [Monitor] Respiratory Rate 30 H 34 H Blood Pressure 221/117 H Pulse Oximetry 92 97 05/14/21 18:04 05/14/21 18:05 05/14/21 18:07 Temperature Pulse Rate 116 H 112 H Pulse Rate [Monitor] Respiratory Rate 26 H 26 H Blood Pressure 152/88 H Pulse Oximetry 100 100 05/14/21 18:28 05/14/21 19:01 05/14/21 19:51 Temperature Pulse Rate 115 H 104 H 91 Pulse Rate [Monitor] Respiratory Rate 26 H 26 H 26 H Blood Pressure 117/80 121/84 Pulse Oximetry 100 100 05/14/21 19:52 05/14/21 20:00 05/14/21 20:05 Temperature 97.1 F L Pulse Rate 91 86 110 H Pulse Rate [Monitor] Respiratory Rate 26 H 25 H Blood Pressure 121/84 112/80 Pulse Oximetry 100 98 98 05/14/21 20:15 05/14/21 20:34 05/14/21 20:44 Temperature Pulse Rate 86 102 H 98 Pulse Rate [Monitor] 86 Respiratory Rate 26 H 26 H 26 H Blood Pressure Pulse Oximetry 98 05/14/21 21:03 05/14/21 21:10 05/14/21 22:00 Temperature Pulse Rate 99 93 94 Pulse Rate [Monitor] Respiratory Rate 26 H 25 H 26 H Blood Pressure 156/90 H Pulse Oximetry 95 05/14/21 22:37 05/14/21 22:38 05/14/21 23:43 Temperature Pulse Rate 94 94 76 Pulse Rate [Monitor] Respiratory Rate 26 H 26 H 26 H Blood Pressure Pulse Oximetry 05/14/21 23:58 05/15/21 00:00 05/15/21 02:00 Temperature 97.4 F L Pulse Rate 86 85 90 Pulse Rate [Monitor] 85 Respiratory Rate 20 20 Blood Pressure 131/89 14
[2021-05-15 17:24] LABS: SARS-CoV-2 RNA PCR Negative
[2021-05-15 17:45] LABS: Glucose Point of Care 145 mg/dl (65-105)
[2021-05-15 21:31] LABS: Glucose Point of Care 119 mg/dl (65-105)
[2021-05-16] VITALS (39 sets, daily range): BP systolic 100–116; BP diastolic 67–77; PULSE 66–98; RESP 18; TEMP 36.4–37.1; O2SAT 89–95
[2021-05-16 00:05] LABS: Glucose Point of Care 100 mg/dl (65-105)
[2021-05-16] MEDS: ALBUTEROL SULFATE NEB 2.5 MG/0.5 ML INH 5 MG INHALATION ×4 (02:00→20:06)
[2021-05-16] MEDS: IPRATROPIUM BR 0.02% INH SOLN 0.5 MG/2.5 ML VIAL INHALATION ×4 (02:00→20:09)
[2021-05-16] MEDS: PROPOFOL IV EMULSION 100 ML 32.1 MG IV CONT ×4 (02:07→12:02)
[2021-05-16 04:40] LABS: Basophils Percent Auto 0.2 % (0.2-1.2); Hematocrit 47.5 % (42.0-52.0); Hemoglobin 15.1 g/dL (14.0-18.0); Immature Granulocyte Absolute 0.18 K/mm3 (0.00-0.031); Immature Granulocyte Percent A 0.9 % (0-0.5); Lymphocytes Absolute Auto 1.25 K/mm3 (0.9-3.2); Lymphocytes Percent Auto 6.5 % (18.3-44.2); Mean Corpuscular HGB Conc 31.8 g/dl (32-36); Mean Corpuscular Hemoglobin 31.5 pg (26-34); Mean Platelet Volume 9.4 fl (7.4-10.4); Monocytes Absolute Auto 1.3 K/mm3 (0.1-0.6); Monocytes Percent Auto 6.9 % (2.6-8.5); Neutrophils Absolute Auto 16.4 K/mm3 (1.3-6.7); Neutrophils Percent Auto 85.5 % (45.5-73.1); Platelet Count Result 300 k/mm3 (150-375); White Blood Count 19.2 K/mm3 (4.5-10.0)
[2021-05-16 04:56] LABS: Alanine Aminotransferase 35 U/L (4-50); Albumin Level 3.5 g/dL (3.5-5.1); Alkaline Phosphatase 72 U/L (38-126); Anion Gap 3 mmol/L (8-16); Aspartate Amino Transferase 33 U/L (17-59); Bilirubin,Total 0.2 mg/dL (0.2-1.3); Blood Urea Nitrogen 27 mg/dL (9-20); Calcium 8.5 mg/dL (8.4-10.2); Carbon Dioxide 35 mmol/L (22-30); Chloride 101 mmol/L (98-107); Estimated CRCL calculation 95 ml/min; Estimated Glomerular Filt Rate > 60; Glucose 126 mg/dL (75-110); Magnesium 2.6 mg/dL (1.6-2.3); Potassium 4.5 mmol/L (3.4-5.0); Sodium 139 mmol/L (137-145)
[2021-05-16 05:25] LABS: Alveolar/Arterial O2 Gradient 295.5 mmHg; Base Excess ABG 7.1 mEq/l (+/-2.0); Fractional Inspired Oxygen 60 %; HCO3 ABG 34.5 mEq/l (22.0-26.0); Methemoglobin ABG 0.2 %THb (0-1.5); Oxygen Content ABG 20.5 %vol (16.0-22.0); Oxygen Saturation ABG 92.5 % (95.0-100.0); Oxyhemoglobin 92.5 % THb (90.0-100.0); PCO2 ABG 59.6 mmHg (35.0-45.0); PO2 ABG 66.7 mmHg (80.0-100.0); PO2 FiO2 Ratio Arterial Blood 1.11 %; Reduced Hemoglobin 7.3 %THb (0-5.0); Total Hemoglobin 15.8 g/dL (12.0-18.0); pH ABG 7.381 (7.350-7.450)
[2021-05-16] MEDS: methylPREDNISolone SOD SUCC 40 MG VIAL IV PUSH ×4 (05:25→23:09)
[2021-05-16 05:27] LABS: Device VENTILATOR; Modified Allen's Test Pass; Site Drawn RIGHT RADIAL
[2021-05-16 05:28] LABS: Arterial Blood Gas PEEP 5 cmH2O; Arterial Blood Gas Tidal Volume 480 ml; Arterial Blood Gas Vent Mode CMV; Arterial Blood Gas Ventilator rate 18 /MIN
[2021-05-16 05:42] LABS: Glucose Point of Care 131 mg/dl (65-105)
--- NOTE | 2021-05-16 08:00 | WPDINTPN ---
Progress Note: A&P Assessment and Plan (1) Acute respiratory failure with hypoxia and hypercapnia: Code(s): J96.01 - Acute respiratory failure with hypoxia; J96.02 - Acute respiratory failure with hypercapnia Status: Acute Assessment and Plan: Acute hypercapnic respiratory failure likely related to COPD exacerbation, interstitial edema -patient was intubated on 05/14/2021 -continue cefepime (initiated on 05/14), will add vancomycin (05/16) -sputum cultures pending -continue bronchodilators -sedated with fentanyl and propofol infusion -chest x-ray and ABGs reviewed -currently on peep of 5 and 60% FiO2, ventilator adjusted (2) Acute exacerbation of chronic obstructive airways disease: Code(s): J44.1 - Chronic obstructive pulmonary disease with (acute) exacerbation Status: Acute Assessment and Plan: Continue steroids, bronchodilators, mechanical ventilation -repeat ABGs improving (3) Tobacco dependence: Code(s): F17.200 - Nicotine dependence, unspecified, uncomplicated Status: Acute Assessment and Plan: Unable to provide tobacco cessation counseling at this time. Will do so once patient is awake (4) Alcohol abuse: Code(s): F10.10 - Alcohol abuse, uncomplicated Status: Acute Assessment and Plan: Continue thiamine and folic acid (5) Elevated troponin: Code(s): R77.8 - Other specified abnormalities of plasma proteins Status: Acute Assessment and Plan: Elevated troponins, trending down. Likely related to her acute respiratory failure COPD exacerbation -obtain echocardiogram (6) DVT prophylaxis: Code(s): Z29.9 - Encounter for prophylactic measures, unspecified Status: Acute Assessment and Plan: DVT prophylaxis: Lovenox (7) Dietary counseling and surveillance: Code(s): Z71.3 - Dietary counseling and surveillance Status: Acute Assessment and Plan: Stress ulcer prophylaxis: Protonix Continue tube feeds, tolerating Additional Plan Will update family Code status: Full code Critical care time spent: 34 minutes This dictation may have been done utilizing a voice recognition system. Attempts have been made to correct errors. However, there may be uncorrected grammatical, spelling, and recognition errors present. Due to a high probability of clinically significant, life threatening deterioration, the patient required my highest level of preparedness to intervene emergently and I personally spent this critical care time directly and personally managing the patient. This critical care time included obtaining a history; examining the patient; pulse oximetry; ordering and review of studies; arranging urgent treatment with development of a management plan; evaluation of patient's response to treatment; frequent reassessment; and discussions with other providers. It was exclusive of separately billable procedures and treating other patients and teaching time. Please see Assessment and Plan section and the rest of the note for further information on patient assessment and treatment Subjective Date/time seen: 05/16/21 08:00 Interval history: Reason for consult: Acute respiratory failure, COPD exacerbation 04/15/2021: Patient remains intubated, CMV mode of ventilation, peep of 5, FiO2 was increased to 60%. WBC count has increased to 19.2. Patient was negative for SARS-CoV-2 PCR PCR. Hemodynamically stable, urine output has been adequate. Tolerating tube feeds. Sedated with fentanyl and propofol infusion Review of Systems Review of Systems: ROS unobtainable: Yes unobtainable due to endotracheal tube Exam Const: General: comfortable and no acute distress HENMT: Other: ETT in place Eyes: Other: Pinpoint and reactive Neck: Neck: supple Resp: Effort & Inspection: normal respiratory effort Auscultation: rhonchi and diminished lung sounds Cardio: Rate: regular rate Rhythm: regular rhythm G
[2021-05-16] MEDS: ENOXAPARIN 40 MG/0.4 ML SYRINGE SUB-Q (08:41)
[2021-05-16] MEDS: LOSARTAN POTASSIUM 25 MG TABLET PO (08:42)
[2021-05-16] MEDS: THIAMINE HCL 200 MG/2 ML VIAL 100 MG IV PUSH (08:42)
[2021-05-16] MEDS: METOPROLOL SUCCINATE EXT REL 25 MG TABCR PO (08:42)
[2021-05-16] MEDS: PANTOPRAZOLE SODIUM IV 40 MG VIAL IV PUSH (08:42)
[2021-05-16] MEDS: FOLIC ACID 1 MG/0.2 ML INJ IV PUSH (08:51)
--- NOTE | 2021-05-16 10:14 | ECHO_ITS ---
Patient Info Name: Alonzo Michel Age: 60 years : 1960 Gender: Male Ht: 67 in Wt: 235 lbs BSA: 2.29 m2 HR: 98 bpm BP: 114 / 73 mmHg Heart Rhythm: Sinus Rhythm Technical Quality: Poor Exam Date: 05/16/2021 11:19 AM Exam Location: [facility] Exam Room: ICU3 Patient Status: Inpatient Admit Date: 05/14/2021 Staff Ordering Physician: Marni Corrales PA-C [employer]ributor: Nancie Barnes RDCS Attending Provider: Sachin Amaya MD Referring Physician: Antoni VALVERDE; Exam Type: CA echo doppler w bubble study Study Info Indications - resp failure elevated troponins cm Complete two-dimensional, color flow and Doppler transthoracic echocardiogram is performed with contrast to opacify the left ventricle and to improve the deliniation of the left ventricle endocardial borders. Complete two-dimensional, color flow and Doppler transthoracic echocardiogram is performed with agitated saline. Contrast/Agitated Saline Contrast/Ag. Saline: Definity Amount: 1.00 ml Administered By: Amairani Barahona RN Existing IV Access: Yes IV Access Condition: patent with no signs of infiltration Contrast/Ag. Saline: Agitated Saline Amount: 20.00 ml Administered By: Amairani Barahona RN Existing IV Access: Yes Reason for Poor Study: poor echocardiographic windows Summary 1. Mild left ventricular enlargement with mild left ventricular hypertrophy. Moderate global hypokinesis. Calculated ejection fraction 40% visually 40-45%. Grade 2 diastolic dysfunction is present. 2. Left atrial chamber dimension is moderately enlarged. 3. No significant valve disease. 4. Normal sinus rhythm. 5. No pulmonary hypertension, estimated pulmonary arterial systolic pressure is 33 mmHg. Left Ventricle Left ventricular chamber dimension is mildly enlarged. Left ventricular systolic function is normal, estimated at 40-45%. There is mildly increased left ventricular wall thickness. Left ventricular septal wall motion is normal. The left ventricular diastolic function is grade II diastolic dysfunction. Left ventricular chamber size are normal with no regional wall motion abnormalities with an estimated ejection fraction of Empty. Right Ventricle Right ventricular chamber dimension is normal. Right ventricular systolic function is normal. Left Atria Left atrial chamber dimension is moderately enlarged. Right Atria Right atrial chamber dimension is normal. Aortic Valve The aortic valve is trileaflet. There is no aortic valve sclerosis. There is no aortic valve stenosis. There is no aortic valve regurgitation. Pulmonic Valve The pulmonic valve is normal. There is no pulmonic valve stenosis. There is no pulmonic regurgitation. Mitral Valve The mitral valve has normal leaflets. There is no mitral valve stenosis. There is trace mitral valve regurgitation. Tricuspid Valve The tricuspid valve leaflets are normal. There is no significant tricuspid valve stenosis. There is trace tricuspid valve regurgitation. No pulmonary hypertension, estimated pulmonary arterial systolic pressure is 33 mmHg. Pericardium/Pleural The pericardium appears normal. There is no pericardial effusion. Inferior Vena Cava Normal inferior vena cava with >50% collapse upon inspiration consistent with Empty right atrial pressure, 10 mmHg. Aorta The aortic root size a
--- NOTE | 2021-05-16 11:33 | PCDIET ---
ICU Rounding Note: Patient tolerating Vital HP at 40mL/hr goal rate with 30mL water flush every 4 hours. Last recorded weight is 101.6kg which is stable with last review. Bowel Motility: No documented BM as of yet. Labs Reviewed: WBC (19.2), Glu (131), BUN (27), Mg (2.6) Meds Noted: Albuterol, Folic Acid, Atrovent, Cefepime, Fentanyl, Cozaar, Solu Medrol, Protonix, Propofol (rate of 32.1mL/hr provides 847 kcal per day), Thiamine, Vancomycin Additional Notes: No documented skin breakdown. Following daily in ICU rounds. Assessing/reassessing every Friday/Friday.
[2021-05-16] MEDS: PERFLUTREN LIPID MICROSPHERES 1.5 ML VIAL DILUTED TO 10 ML TOTAL VOLUME IV PUSH (12:04)
[2021-05-16] MEDS: LORazepam INJ (*CRX) 2 MG/ML VIAL 1 MG IV PUSH (12:14)
[2021-05-16 13:02] LABS: Glucose Point of Care 98 mg/dl (65-105)
--- NOTE | 2021-05-16 14:29 | PM.IMPN ---
Progress Note: A&P Assessment and Plan (1) Acute respiratory failure with hypoxia and hypercapnia: Code(s): J96.01 - Acute respiratory failure with hypoxia; J96.02 - Acute respiratory failure with hypercapnia Status: Acute (2) Acute exacerbation of chronic obstructive airways disease: Code(s): J44.1 - Chronic obstructive pulmonary disease with (acute) exacerbation Status: Acute (3) Cardiomegaly: Code(s): I51.7 - Cardiomegaly Status: Acute (4) Elevated troponin: Code(s): R77.8 - Other specified abnormalities of plasma proteins Status: Acute (5) Tobacco dependence: Code(s): F17.200 - Nicotine dependence, unspecified, uncomplicated Status: Acute (6) Elevated blood pressure reading: Code(s): R03.0 - Elevated blood-pressure reading, without diagnosis of hypertension Status: Acute (7) Alcohol abuse: Code(s): F10.10 - Alcohol abuse, uncomplicated Status: Acute (8) Tracheomalacia: Code(s): J39.8 - Other specified diseases of upper respiratory tract Status: Acute Additional Plan # acute respiratory failrue hypoxic hypercapnic, initially stared onbipap but now intudated. # COPD exacerbation # CHF exaceration: no prior diagnosis. cxr with interstitial edema. # tracheomalacia # elevated troponin # tobacco dependence # Alcohol abuse # DVT proph: lovenox Cocaine positive COVVID negative. 05/16: leukoctyosis worsned. remains on full support. vancomycina dded . also on steroid. [id number]. contineu ICU care. Subjective Date/time seen: 05/16/21 14:29 Interval history: patient intubatted an sedated. on vent full support. no ros could be colleced. Review of Systems Review of Systems: ROS unobtainable: Yes unobtainable due to endotracheal tube Exam Narrative: Exam Narrative: GENERAL: The patient is well developed, sedad, on vent HEENT:normocephalic and atrumatic HEART: Regular rate and rhythm without murmur, rubs, or gallops LUNGS: equal air entry,on vent full support, no respiratory distress ABDOMEN: Soft, positive bowel sounds, non-tender, no organomegaly. SKIN: No rash, no excessive bruising, petechiae, or purpura. NEUROLOGIC: sedated EXTREMITIES: no edema, cyanosis or clubbing Objective Data Vital Signs Vital Signs: Vital Signs - 24 hr 05/15/21 14:36 05/15/21 16:00 05/15/21 17:06 Temperature 98.2 F Pulse Rate 80 74 72 Pulse Rate [Monitor] 77 Respiratory Rate 18 18 Blood Pressure 102/63 Pulse Oximetry 93 93 94 05/15/21 17:14 05/15/21 17:35 05/15/21 18:00 Temperature Pulse Rate 71 71 77 Pulse Rate [Monitor] Respiratory Rate 18 18 18 Blood Pressure 97/62 L Pulse Oximetry 94 05/15/21 19:47 05/15/21 19:51 05/15/21 19:53 Temperature 97.8 F Pulse Rate 74 Pulse Rate [Monitor] Respiratory Rate 18 Blood Pressure Pulse Oximetry 90 94 05/15/21 20:00 05/15/21 20:01 05/15/21 20:07 Temperature Pulse Rate 79 76 83 Pulse Rate [Monitor] 77 Respiratory Rate 18 18 18 Blood Pressure 116/67 Pulse Oximetry 90 05/15/21 21:56 05/15/21 22:00 05/15/21 22:58 Temperature Pulse Rate 94 93 91 Pulse Rate [Monitor] Respiratory Rate 18 18 18 Blood Pressure 145/91 H Pulse Oximetry 91 05/15/21 23:02 05/15/21 23:49 05/16/21 00:00 Temperature 98.4 F Pulse Rate 90 81 Pulse Rate [Monitor] 74 Respiratory Rate 18 Blood Pressure 100/71 Pulse Oximetry 92 91 05/16/21 01:59 05/16/21 02:00 05/16/21 02:05 Temperature Pulse Rate 66 68 67 Pulse Rate [Monitor] Respiratory Rate 18 18 Blood Pressure 108/74 Pulse Oximetry 93 93 05/16/21 02:07 05/16/21 03:10 05/16/21 03:18 Temperature 97.5 F L Pulse Rate 67 70 Pulse Rate [Monitor] Respiratory Rate 18 18 Blood Pressure Pulse Oximetry 05/16/21 04:00 05/16/21 04:52 05/16/21 05:10 Temperature Pulse Rate 82 74 75 Pulse Rate [Monitor] 79 Respiratory Rate 18 18
[2021-05-16] MEDS: PROPOFOL IV EMULSION 100 ML 25.68 MG IV CONT ×3 (15:36→23:10)
[2021-05-16 17:43] LABS: Glucose Point of Care 139 mg/dl (65-105)
[2021-05-17] VITALS (46 sets, daily range): BP systolic 95–137; BP diastolic 65–89; PULSE 67–111; RESP 18–21; TEMP 36.1–37.1; O2SAT 88–94
[2021-05-17] MEDS: FENTANYL 2,500MCG/NS250ML(*CRX 2,500 MCG/250 ML BAG IV CONT
[2021-05-17 00:22] LABS: Glucose Point of Care 92 mg/dl (65-105)
[2021-05-17] MEDS: IPRATROPIUM BR 0.02% INH SOLN 0.5 MG/2.5 ML VIAL INHALATION ×4 (02:19→20:46)
[2021-05-17] MEDS: ALBUTEROL SULFATE NEB 2.5 MG/0.5 ML INH 5 MG INHALATION ×4 (02:19→20:46)
[2021-05-17] MEDS: PROPOFOL IV EMULSION 100 ML 25.68 MG IV CONT ×5 (02:38→17:17)
[2021-05-17] MEDS: LORazepam INJ (*CRX) 2 MG/ML VIAL 1 MG IV PUSH (04:47)
[2021-05-17 04:53] LABS: Basophils Percent Auto 0.1 % (0.2-1.2); Hematocrit 47.6 % (42.0-52.0); Hemoglobin 14.9 g/dL (14.0-18.0); Immature Granulocyte Absolute 0.17 K/mm3 (0.00-0.031); Lymphocytes Absolute Auto 1.03 K/mm3 (0.9-3.2); Lymphocytes Percent Auto 6.3 % (18.3-44.2); Mean Corpuscular HGB Conc 31.3 g/dl (32-36); Mean Corpuscular Hemoglobin 31.1 pg (26-34); Mean Corpuscular Volume 99.4 fl (80-100); Mean Platelet Volume 9.8 fl (7.4-10.4); Monocytes Absolute Auto 1.1 K/mm3 (0.1-0.6); Monocytes Percent Auto 6.6 % (2.6-8.5); Neutrophils Absolute Auto 14.2 K/mm3 (1.3-6.7); Platelet Count Result 289 k/mm3 (150-375); Red Blood Count 4.79 M/mm3 (4.6-6.20); Red Cell Distribution Width 13.9 % (11.5-14.5); White Blood Count 16.5 K/mm3 (4.5-10.0)
--- NOTE | 2021-05-17 04:54 | PC.NURSE ---
At 0440 a.m. attempted to bath and suction patient. Patient sat straight up in bed while drawing his legs up and kicking at this nurse. Patient attempting to grab ET tube and loosen restraints. Patient continues to thrash his head back and forth and draw his legs up stepping on his restraints while attempting to pull his hand out. Another nurse was called into the room to assist with the situation. Sedation titrated.
[2021-05-17] MEDS: methylPREDNISolone SOD SUCC 40 MG VIAL IV PUSH ×4 (05:03→23:16)
[2021-05-17 05:13] LABS: Alanine Aminotransferase 27 U/L (4-50); Albumin Level 3.5 g/dL (3.5-5.1); Alkaline Phosphatase 70 U/L (38-126); Anion Gap 5 mmol/L (8-16); Aspartate Amino Transferase 22 U/L (17-59); Bilirubin,Total 0.2 mg/dL (0.2-1.3); Blood Urea Nitrogen 26 mg/dL (9-20); CRP 1.4 mg/dL (<1.0); Calcium 8.4 mg/dL (8.4-10.2); Carbon Dioxide 34 mmol/L (22-30); Chloride 100 mmol/L (98-107); Estimated CRCL calculation 85 ml/min; Estimated Glomerular Filt Rate > 60; Glucose 123 mg/dL (75-110); Magnesium 2.3 mg/dL (1.6-2.3); Phosphorus 4.1 mg/dL (2.5-4.5); Potassium 4.4 mmol/L (3.4-5.0); Sodium 139 mmol/L (137-145)
[2021-05-17 05:24] LABS: Alveolar/Arterial O2 Gradient 251.6 mmHg; Base Excess ABG 5.8 mEq/l (+/-2.0); Carboxyhemoglobin 0.2 % THb (0-2.0); Fractional Inspired Oxygen 55 %; HCO3 ABG 33.8 mEq/l (22.0-26.0); Methemoglobin ABG 0.3 %THb (0-1.5); Oxygen Content ABG 20.6 %vol (16.0-22.0); PO2 ABG 70.8 mmHg (80.0-100.0); PO2 FiO2 Ratio Arterial Blood 1.29 %; Reduced Hemoglobin 6.5 %THb (0-5.0); Total Hemoglobin 15.8 g/dL (12.0-18.0); pH ABG 7.349 (7.350-7.450)
[2021-05-17 05:26] LABS: Arterial Blood Gas Vent Mode CMV; Arterial Blood Gas Ventilator rate 18 /MIN; Device VENTILATOR; Modified Allen's Test Pass; PCO2 ABG 62.7 mmHg (35.0-45.0); Site Drawn LEFT RADIAL
[2021-05-17 05:27] LABS: Arterial Blood Gas PEEP 5 cmH2O; Arterial Blood Gas Tidal Volume 480 ml
[2021-05-17 05:57] LABS: Glucose Point of Care 118 mg/dl (65-105)
[2021-05-17] MEDS: FUROSEMIDE INJ 40 MG/4 ML VIAL 20 MG IV PUSH (08:10)
[2021-05-17] MEDS: THIAMINE HCL 200 MG/2 ML VIAL 100 MG IV PUSH (08:11)
[2021-05-17] MEDS: ENOXAPARIN 40 MG/0.4 ML SYRINGE SUB-Q (08:12)
[2021-05-17] MEDS: PANTOPRAZOLE SODIUM IV 40 MG VIAL IV PUSH (08:12)
[2021-05-17] MEDS: FOLIC ACID 1 MG/0.2 ML INJ IV PUSH (08:19)
--- NOTE | 2021-05-17 09:30 | WPDINTPN ---
Progress Note: A&P Assessment and Plan (1) Acute respiratory failure with hypoxia and hypercapnia: Code(s): J96.01 - Acute respiratory failure with hypoxia; J96.02 - Acute respiratory failure with hypercapnia Status: Acute Assessment and Plan: Acute hypercapnic respiratory failure likely related to COPD exacerbation, interstitial edema -patient was intubated on 05/14/2021 -continue cefepime (initiated on 05/14), vancomycin stay (initiated on 05/16) -repeat sputum cultures -patient with thick secretions, started him on Pulmozyme -continue bronchodilators -sedated with fentanyl and propofol infusion -chest x-ray and ABGs reviewed -currently on peep of 5 and 50% FiO2, wean FiO2 to maintain O2 sats greater than 90% (2) Acute exacerbation of chronic obstructive airways disease: Code(s): J44.1 - Chronic obstructive pulmonary disease with (acute) exacerbation Status: Acute Assessment and Plan: Continue steroids, bronchodilators, mechanical ventilation -repeat ABGs improving (3) Tobacco dependence: Code(s): F17.200 - Nicotine dependence, unspecified, uncomplicated Status: Acute Assessment and Plan: Unable to provide tobacco cessation counseling at this time. Will do so once patient is awake (4) Alcohol abuse: Code(s): F10.10 - Alcohol abuse, uncomplicated Status: Acute Assessment and Plan: Continue thiamine and folic acid (5) Elevated troponin: Code(s): R77.8 - Other specified abnormalities of plasma proteins Status: Acute Assessment and Plan: Elevated troponins, trending down. Likely related to her acute respiratory failure COPD exacerbation -echocardiogram has been obtained, await report (6) DVT prophylaxis: Code(s): Z29.9 - Encounter for prophylactic measures, unspecified Status: Acute Assessment and Plan: DVT prophylaxis: Lovenox (7) Dietary counseling and surveillance: Code(s): Z71.3 - Dietary counseling and surveillance Status: Acute Assessment and Plan: Stress ulcer prophylaxis: Protonix Continue tube feeds, tolerating Additional Plan Will update family Code status: Full code Critical care time spent: 33 minutes This dictation may have been done utilizing a voice recognition system. Attempts have been made to correct errors. However, there may be uncorrected grammatical, spelling, and recognition errors present. Due to a high probability of clinically significant, life threatening deterioration, the patient required my highest level of preparedness to intervene emergently and I personally spent this critical care time directly and personally managing the patient. This critical care time included obtaining a history; examining the patient; pulse oximetry; ordering and review of studies; arranging urgent treatment with development of a management plan; evaluation of patient's response to treatment; frequent reassessment; and discussions with other providers. It was exclusive of separately billable procedures and treating other patients and teaching time. Please see Assessment and Plan section and the rest of the note for further information on patient assessment and treatment Subjective Date/time seen: 05/17/21 09:30 Interval history: Reason for consult: Acute respiratory failure, COPD exacerbation 04/16/2021: Patient remains intubated, CMV mode of ventilation, peep of 5, FiO2 was increased to 60%. WBC count has increased to 16.5. Patient was negative for SARS-CoV-2 PCR PCR. Hemodynamically stable, urine output has been adequate. Tolerating tube feeds. Sedated with fentanyl and propofol infusion. Thick secretions. According to the RN when sedation is decreased patient gets very agitated Review of Systems Review of Systems: ROS unobtainable: Yes unobtainable due to endotracheal tube Exam Const: General: comfortable and no acute distress HENMT: Other: ETT in place Eyes:
[2021-05-17] MEDS: DORNASE ALFA INH SOLN 1 MG/ML 2.5 ML AMP 2.5 MG INHALATION ×2 (09:50→20:46)
--- NOTE | 2021-05-17 11:16 | PCDIET ---
Addendum entered by Shobha Eckert RD, LDN 05/17/21 11:19: Patient also receiving Propofol (rate of 25.68mL/hr provides 677kcal per day) - thus, recommend continuing present tube feeding/rate. Original Note: ICU Rounding Note: Patient tolerating Vital HP at 40mL/hr goal rate with 30mL water flush every 4 hours. Residuals 170mL and below. Last recorded weight is 96.1kg which is decreased from last review. +I/O documented. Bowel Motility: No documented BM. Labs Reviewed: WBC (16.5), Glu (123), BUN (26) Meds Noted: Albuterol, Cefepime, Pulmozyme, Fentanyl, Folic Acid, Atrovent, Solu Medrol, Toprol XL, Protonix, Thiamine, Vancomycin Additional Notes: No documented skin breakdown. Following daily in ICU rounds. Assessing/reassessing every Friday/Friday.
[2021-05-17 13:00] LABS: Glucose Point of Care 146 mg/dl (65-105)
[2021-05-17] MEDS: PROPOFOL IV EMULSION 100 ML 32.1 MG IV CONT (20:44)
[2021-05-17 21:43] LABS: Vancomycin Trough 7.3 ug/mL (10.0-20.0)
[2021-05-17 22:50] LABS: Glucose Point of Care 152 mg/dl (65-105)
[2021-05-18] VITALS (49 sets, daily range): BP systolic 102–135; BP diastolic 62–79; PULSE 64–115; RESP 14–23; TEMP 36.2–37.1; O2SAT 90–96
[2021-05-18] MEDS: PROPOFOL IV EMULSION 100 ML 32.1 MG IV CONT ×7 (00:30→22:02)
[2021-05-18] MEDS: FENTANYL 2,500MCG/NS250ML(*CRX 2,500 MCG/250 ML BAG 12.5 MCG IV CONT (00:36)
[2021-05-18] MEDS: IPRATROPIUM BR 0.02% INH SOLN 0.5 MG/2.5 ML VIAL INHALATION ×4 (02:23→21:03)
[2021-05-18] MEDS: ALBUTEROL SULFATE NEB 2.5 MG/0.5 ML INH 5 MG INHALATION ×4 (02:23→21:03)
[2021-05-18 05:10] LABS: Base Excess ABG 8.9 mEq/l (+/-2.0); HCO3 ABG 35.9 mEq/l (22.0-26.0); Oxygen Saturation ABG 95.4 % (95.0-100.0); PCO2 ABG 57.9 mmHg (35.0-45.0); PO2 ABG 78.4 mmHg (80.0-100.0); Total Hemoglobin 15.8 g/dL (12.0-18.0)
[2021-05-18 05:11] LABS: Alveolar/Arterial O2 Gradient 249.3 mmHg; Carboxyhemoglobin 0.2 % THb (0-2.0); Device VENTILATOR; Fractional Inspired Oxygen 55 %; Methemoglobin ABG 0.2 %THb (0-1.5); Modified Allen's Test Unable to perform; Oxygen Content ABG 21.1 %vol (16.0-22.0); Oxyhemoglobin 94.8 % THb (90.0-100.0); PO2 FiO2 Ratio Arterial Blood 1.43 %; Reduced Hemoglobin 4.8 %THb (0-5.0); Site Drawn RIGHT RADIAL
[2021-05-18 05:12] LABS: Arterial Blood Gas PEEP 5 cmH2O; Arterial Blood Gas Vent Mode CMV; Arterial Blood Gas Ventilator rate 20 /MIN
[2021-05-18 05:13] LABS: Arterial Blood Gas Tidal Volume 480 ml
[2021-05-18 05:26] LABS: Hematocrit 46.4 % (42.0-52.0); Mean Corpuscular HGB Conc 32.3 g/dl (32-36); Mean Corpuscular Hemoglobin 31.6 pg (26-34); Mean Corpuscular Volume 97.7 fl (80-100); Mean Platelet Volume 10.1 fl (7.4-10.4); Platelet Count Result 236 k/mm3 (150-375); Red Blood Count 4.75 M/mm3 (4.6-6.20); Red Cell Distribution Width 13.6 % (11.5-14.5); White Blood Count 16.1 K/mm3 (4.5-10.0)
[2021-05-18 05:35] LABS: Anion Gap 3 mmol/L (8-16); Blood Urea Nitrogen 26 mg/dL (9-20); Calcium 8.3 mg/dL (8.4-10.2); Carbon Dioxide 36 mmol/L (22-30); Chloride 99 mmol/L (98-107); Estimated CRCL calculation 105 ml/min; Estimated Glomerular Filt Rate > 60; Glucose 119 mg/dL (75-110); Magnesium 2.4 mg/dL (1.6-2.3); Potassium 4.6 mmol/L (3.4-5.0); Sodium 138 mmol/L (137-145)
[2021-05-18] MEDS: methylPREDNISolone SOD SUCC 40 MG VIAL IV PUSH ×3 (05:51→18:07)
--- NOTE | 2021-05-18 06:36 | P.CDI_ITS ---
CDI Query Clarification Request -CHF exacerbation, no prior diagnosis, has been documented -05/16 Echo summary: Calculated EF 40%, visually 40-45%, grade 2 diastolic dysfunction -Lasix 20mg IV given 05/15 and 05/17 Please further specify type of CHF: * Systolic * Diastolic * Both systolic and diastolic * Unable to determine <Kavitha Walton RN - Last Filed: 05/18/21 06:42> Clarified Diagnosis (1) Systolic and diastolic CHF, acute: Code(s): I50.41 - Acute combined systolic (congestive) and diastolic (congestive) heart failure <Kavitha Walton RN - Last Filed: 05/18/21 06:42> Status: Acute <Kavitha Walton RN - Last Filed: 05/18/21 06:42>
[2021-05-18] MEDS: DORNASE ALFA INH SOLN 1 MG/ML 2.5 ML AMP 2.5 MG INHALATION ×2 (08:13→21:04)
[2021-05-18] MEDS: FUROSEMIDE INJ 40 MG/4 ML VIAL IV PUSH (08:40)
[2021-05-18] MEDS: ENOXAPARIN 40 MG/0.4 ML SYRINGE SUB-Q (08:43)
[2021-05-18] MEDS: PANTOPRAZOLE SODIUM IV 40 MG VIAL IV PUSH (08:44)
[2021-05-18] MEDS: THIAMINE HCL 200 MG/2 ML VIAL 100 MG IV PUSH (08:45)
[2021-05-18] MEDS: FOLIC ACID 1 MG/0.2 ML INJ IV PUSH (08:50)
--- NOTE | 2021-05-18 09:00 | PC.NURSE ---
When performing 0800 patient assessment, patient was found to be on 100mcg/hr of Fentanyl. Prior RN had. reported that this medication was infusing at this rate
[2021-05-18] MEDS: METOPROLOL SUCCINATE EXT REL 25 MG TABCR PO (09:09)
[2021-05-18] MEDS: LOSARTAN POTASSIUM 25 MG TABLET PO (09:10)
--- NOTE | 2021-05-18 09:25 | WPDINTPN ---
Progress Note: A&P Assessment and Plan (1) Acute respiratory failure with hypoxia and hypercapnia: Code(s): J96.01 - Acute respiratory failure with hypoxia; J96.02 - Acute respiratory failure with hypercapnia Status: Acute Assessment and Plan: Acute hypercapnic respiratory failure likely related to COPD exacerbation, likely pneumonia -patient was intubated on 05/14/2021 -continue cefepime (initiated on 05/14), vancomycin stay (initiated on 05/16) -repeat sputum cultures -patient with thick secretions, continue Pulmozyme -continue bronchodilators -sedated with fentanyl and propofol infusion, daily sedation vacation -chest x-ray and ABGs reviewed -currently on peep of 5 and 55% FiO2, wean FiO2 to maintain O2 sats greater than 90% (2) Acute exacerbation of chronic obstructive airways disease: Code(s): J44.1 - Chronic obstructive pulmonary disease with (acute) exacerbation Status: Acute Assessment and Plan: Continue steroids, bronchodilators, mechanical ventilation -repeat ABGs improving (3) Tobacco dependence: Code(s): F17.200 - Nicotine dependence, unspecified, uncomplicated Status: Acute Assessment and Plan: Unable to provide tobacco cessation counseling at this time. Will do so once patient is awake (4) Alcohol abuse: Code(s): F10.10 - Alcohol abuse, uncomplicated Status: Acute Assessment and Plan: Continue thiamine and folic acid (5) Elevated troponin: Code(s): R77.8 - Other specified abnormalities of plasma proteins Status: Acute Assessment and Plan: Elevated troponins, trending down. Likely related to her acute respiratory failure COPD exacerbation -echocardiogram has been obtained, await report (6) DVT prophylaxis: Code(s): Z29.9 - Encounter for prophylactic measures, unspecified Status: Acute Assessment and Plan: DVT prophylaxis: Lovenox (7) Dietary counseling and surveillance: Code(s): Z71.3 - Dietary counseling and surveillance Status: Acute Assessment and Plan: Stress ulcer prophylaxis: Protonix Continue tube feeds, tolerating Additional Plan Will update family Code status: Full code Critical care time spent: 32 minutes This dictation may have been done utilizing a voice recognition system. Attempts have been made to correct errors. However, there may be uncorrected grammatical, spelling, and recognition errors present. Due to a high probability of clinically significant, life threatening deterioration, the patient required my highest level of preparedness to intervene emergently and I personally spent this critical care time directly and personally managing the patient. This critical care time included obtaining a history; examining the patient; pulse oximetry; ordering and review of studies; arranging urgent treatment with development of a management plan; evaluation of patient's response to treatment; frequent reassessment; and discussions with other providers. It was exclusive of separately billable procedures and treating other patients and teaching time. Please see Assessment and Plan section and the rest of the note for further information on patient assessment and treatment Subjective Date/time seen: 05/18/21 09:25 Interval history: Reason for consult: Acute respiratory failure, COPD exacerbation 04/17/2021: Patient remains intubated on CMV mode, peep of 5, FiO2 of 55%. Patient continues to have thick secretions. Remains hemodynamically stable, afebrile, good urine output with diuresis. White count is trending down. Patient has been tolerating tube feeds. Sedated with fentanyl and propofol infusion. When sedation is decreased patient gets agitated but does not follow commands. Review of Systems Review of Systems: ROS unobtainable: Yes unobtainable due to endotracheal tube Exam Const: General: comfortable and no acute distress HENMT: Other: ETT in plac
--- NOTE | 2021-05-18 11:18 | PCNFU ---
Nutrition Follow-Up Complete: Inadequate oral intake related to oral intubation as evidenced by NPO status. goal: Patient to meet estimated nutritional needs. Progressing towards goal. We will continue current goal. Pt current nutrition is Vital HP at 40 ml/hr Last recorded weight is 97.6 kg, down from 101.3 kg on admit. Bowel Motility: No BM reported. Miralax ordered. Labs Reviewed:BUN 26,Mg 2.4 Meds Noted:Propofol at 32.1 ml/mk=423 kcals,Albuterol, Cefepime, Pulmozyme, Fentanyl, Folic Acid, Atrovent, Solu Medrol, Toprol XL, Protonix, Thiamine, Vancomycin Additional Notes: Nutrition follow up. Patient remains on mechanical vent. Tube feeding being tolerated providing 1727 kcals and 77 gms protein. Free water flush 30 ml q 4 hours. Skin: WNL. Monitoring: Follow up every Friday and Friday.
[2021-05-18 11:46] LABS: Glucose Point of Care 165 mg/dl (65-105)
--- NOTE | 2021-05-18 13:14 | PM.IMPN ---
Progress Note: A&P Assessment and Plan (1) Systolic and diastolic CHF, acute: Code(s): I50.41 - Acute combined systolic (congestive) and diastolic (congestive) heart failure Status: Acute (2) Tracheomalacia: Code(s): J39.8 - Other specified diseases of upper respiratory tract Status: Acute (3) Elevated troponin: Code(s): R77.8 - Other specified abnormalities of plasma proteins Status: Acute (4) Acute respiratory failure with hypoxia and hypercapnia: Code(s): J96.01 - Acute respiratory failure with hypoxia; J96.02 - Acute respiratory failure with hypercapnia Status: Acute (5) Hypoxia: Code(s): R09.02 - Hypoxemia Status: Acute (6) Alcohol abuse: Code(s): F10.10 - Alcohol abuse, uncomplicated Status: Acute (7) Cardiomegaly: Code(s): I51.7 - Cardiomegaly Status: Acute (8) Acute exacerbation of chronic obstructive airways disease: Code(s): J44.1 - Chronic obstructive pulmonary disease with (acute) exacerbation Status: Acute (9) Tobacco dependence: Code(s): F17.200 - Nicotine dependence, unspecified, uncomplicated Status: Acute Additional Plan # acute respiratory failrue hypoxic hypercapnic, initially stared onbipap but now intudated. continue ICU care as ordered. # COPD exacerbation :steroid, antiboics. # CHF exaceration: no prior diagnosis. cxr with interstitial edema. # tracheomalacia # elevated troponin # tobacco dependence # Alcohol abuse # DVT proph: lovenox Cocaine positive COVVID negative. 05/16: leukoctyosis worsned. remains on full support. vancomycina dded . also on steroid. [id number]. contineu ICU care. 05/18: progress noted. remains intubated and sedated. on antibiotics. cxr reviewe. has interstitial edema. further treamnt per iCU team. apreacite help. Subjective Date/time seen: 05/18/21 13:14 Interval history: patient intubatted an sedated. on vent full support. no ros could be colleced. cxr, labs reviewed. icu note reviewd. Review of Systems Review of Systems: ROS unobtainable: Yes unobtainable due to endotracheal tube Exam Narrative: Exam Narrative: GENERAL: The patient is well developed, sedad, on vent HEENT:normocephalic and atrumatic HEART: Regular rate and rhythm without murmur, rubs, or gallops LUNGS: equal air entry,on vent full support, no respiratory distress ABDOMEN: Soft, positive bowel sounds, non-tender, no organomegaly. SKIN: No rash, no excessive bruising, petechiae, or purpura. NEUROLOGIC: sedated EXTREMITIES: no edema, cyanosis or clubbing Objective Data Vital Signs Vital Signs: Vital Signs - 24 hr 05/17/21 13:25 05/17/21 13:34 05/17/21 14:00 Temperature Pulse Rate 95 92 93 Pulse Rate [Monitor] Respiratory Rate 20 20 20 Blood Pressure 137/89 Pulse Oximetry 94 05/17/21 15:00 05/17/21 16:00 05/17/21 16:52 Temperature 98.2 F Pulse Rate 90 88 79 Pulse Rate [Monitor] 88 Respiratory Rate 20 Blood Pressure 133/84 Pulse Oximetry 94 94 94 05/17/21 17:24 05/17/21 18:00 05/17/21 20:00 Temperature 98.6 F Pulse Rate 80 78 72 Pulse Rate [Monitor] 78 Respiratory Rate 20 20 Blood Pressure 119/82 113/83 Pulse Oximetry 93 92 05/17/21 20:10 05/17/21 20:44 05/17/21 20:47 Temperature Pulse Rate 72 69 70 Pulse Rate [Monitor] Respiratory Rate 20 20 Blood Pressure Pulse Oximetry 91 05/17/21 21:00 05/17/21 21:53 05/17/21 23:23 Temperature Pulse Rate 70 74 71 Pulse Rate [Monitor] Respiratory Rate 20 20 Blood Pressure 114/70 Pulse Oximetry 94 93 05/17/21 23:31 05/17/21 23:33 05/17/21 23:51 Temperature 98.4 F Pulse Rate 72 73 Pulse Rate [Monitor] 72 Respiratory Rate 20 20 Blood Pressure 114/76 114/76 Pulse Oximetry 92 92 05/18/21 00:00 05/18/21 00:30 05/18/21 00:36 Temperature Pulse Rate 73 73 71 Pulse Rate [Monitor] Respiratory Rate 20 20 Blood Pressure Pulse Oximetr
[2021-05-18 18:13] LABS: Glucose Point of Care 128 mg/dl (65-105)
[2021-05-18] MEDS: FENTANYL 2,500MCG/NS250ML(*CRX 2,500 MCG/250 ML BAG 10 MCG IV CONT (22:54)
[2021-05-19] VITALS (41 sets, daily range): BP systolic 92–130; BP diastolic 56–81; PULSE 59–85; RESP 20–23; TEMP 36.2–37.2; O2SAT 89–95
[2021-05-19] MEDS: PROPOFOL IV EMULSION 100 ML 32.1 MG IV CONT ×7 (00:10→22:11)
[2021-05-19] MEDS: methylPREDNISolone SOD SUCC 40 MG VIAL IV PUSH ×5 (00:11→23:34)
[2021-05-19 00:34] LABS: Glucose Point of Care 144 mg/dl (65-105)
[2021-05-19] MEDS: IPRATROPIUM BR 0.02% INH SOLN 0.5 MG/2.5 ML VIAL INHALATION ×4 (02:16→20:05)
[2021-05-19] MEDS: ALBUTEROL SULFATE NEB 2.5 MG/0.5 ML INH 5 MG INHALATION ×4 (02:17→20:05)
[2021-05-19 05:15] LABS: Alveolar/Arterial O2 Gradient 265.5 mmHg; Base Excess ABG 7.7 mEq/l (+/-2.0); Carboxyhemoglobin 0.3 % THb (0-2.0); Fractional Inspired Oxygen 55 %; HCO3 ABG 34.3 mEq/l (22.0-26.0); Methemoglobin ABG 0.3 %THb (0-1.5); Oxygen Content ABG 20.7 %vol (16.0-22.0); Oxygen Saturation ABG 92.8 % (95.0-100.0); Oxyhemoglobin 92.3 % THb (90.0-100.0); PO2 ABG 65.5 mmHg (80.0-100.0); PO2 FiO2 Ratio Arterial Blood 1.19 %; Reduced Hemoglobin 7.1 %THb (0-5.0); pH ABG 7.413 (7.350-7.450)
[2021-05-19 05:16] LABS: Modified Allen's Test Pass; Site Drawn RIGHT RADIAL
[2021-05-19 05:17] LABS: Device VENTILATOR
[2021-05-19 05:18] LABS: Arterial Blood Gas PEEP 5 cmH2O; Arterial Blood Gas Vent Mode CMV; Arterial Blood Gas Ventilator rate 20 /MIN
[2021-05-19 05:19] LABS: Arterial Blood Gas Tidal Volume 480 ml
[2021-05-19] MEDS: DORNASE ALFA INH SOLN 1 MG/ML 2.5 ML AMP 2.5 MG INHALATION ×2 (08:10→20:04)
--- NOTE | 2021-05-19 08:34 | WPDINTPN ---
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 - continue Pulmozyme -continue bronchodilators -sedated with fentanyl and propofol infusion, daily sedation vacation -chest x-ray and ABGs reviewed -currently on peep of 5 and 55% FiO2, wean FiO2 to maintain O2 sats greater than 90% (2) Acute exacerbation of chronic obstructive airways disease: Code(s): J44.1 - Chronic obstructive pulmonary disease with (acute) exacerbation Status: Acute Assessment and Plan: Continue steroids, bronchodilators, mechanical ventilation -repeat ABGs improving (3) Tobacco dependence: Code(s): F17.200 - Nicotine dependence, unspecified, uncomplicated Status: Acute Assessment and Plan: Unable to provide tobacco cessation counseling at this time. Will do so once patient is awake (4) Alcohol abuse: Code(s): F10.10 - Alcohol abuse, uncomplicated Status: Acute Assessment and Plan: Continue thiamine and folic acid (5) Elevated troponin: Code(s): R77.8 - Other specified abnormalities of plasma proteins Status: Acute Assessment and Plan: Elevated troponins, trending down. Likely related to her acute respiratory failure COPD exacerbation -echocardiogram has been obtained, await report (6) DVT prophylaxis: Code(s): Z29.9 - Encounter for prophylactic measures, unspecified Status: Acute Assessment and Plan: DVT prophylaxis: Lovenox (7) Dietary counseling and surveillance: Code(s): Z71.3 - Dietary counseling and surveillance Status: Acute Assessment and Plan: Stress ulcer prophylaxis: Protonix Continue tube feeds, tolerating Additional Plan Will update family Code status: Full code Critical care time spent: 32 minutes This dictation may have been done utilizing a voice recognition system. Attempts have been made to correct errors. However, there may be uncorrected grammatical, spelling, and recognition errors present. Due to a high probability of clinically significant, life threatening deterioration, the patient required my highest level of preparedness to intervene emergently and I personally spent this critical care time directly and personally managing the patient. This critical care time included obtaining a history; examining the patient; pulse oximetry; ordering and review of studies; arranging urgent treatment with development of a management plan; evaluation of patient's response to treatment; frequent reassessment; and discussions with other providers. It was exclusive of separately billable procedures and treating other patients and teaching time. Please see Assessment and Plan section and the rest of the note for further information on patient assessment and treatment Subjective Date/time seen: 05/19/21 08:34 Interval history: Reason for consult: Acute respiratory failure, COPD exacerbation 04/18/2021: Patient remains intubated on CMV mode of ventilation, 55% FiO2 and peep of 5. Patient is sedated with fentanyl and propofol infusion, follows simple commands in all extremities. Urine output has been adequate in response to diuresis. Patient is hemodynamically stable, afebrile. Patient tolerating tube feeds, no bowel movement Review of Systems Review of Systems: ROS unobtainable: Yes unobtainable due to endotracheal tube Exam Const: General: comfortable and no acute distress HENMT: Other: ETT in place Eyes: Other: Pinpoint and reactive Ne
[2021-05-19] MEDS: FUROSEMIDE INJ 40 MG/4 ML VIAL IV PUSH (08:47)
[2021-05-19] MEDS: polyethylene glycoL 3350 17 GM POWD.PACK PO (08:47)
[2021-05-19] MEDS: ENOXAPARIN 40 MG/0.4 ML SYRINGE SUB-Q (08:47)
[2021-05-19] MEDS: LOSARTAN POTASSIUM 25 MG TABLET PO (08:48)
[2021-05-19] MEDS: PANTOPRAZOLE SODIUM IV 40 MG VIAL IV PUSH (08:48)
[2021-05-19] MEDS: METOPROLOL SUCCINATE EXT REL 25 MG TABCR PO (08:48)
[2021-05-19] MEDS: THIAMINE HCL 200 MG/2 ML VIAL 100 MG IV PUSH (08:49)
[2021-05-19] MEDS: FOLIC ACID 1 MG/0.2 ML INJ IV PUSH (08:52)
[2021-05-19] MEDS: PROPOFOL IV EMULSION 100 ML 28.89 MG IV CONT (09:01)
[2021-05-19 09:23] LABS: Anion Gap 6 mmol/L (8-16); Blood Urea Nitrogen 27 mg/dL (9-20); Calcium 8.6 mg/dL (8.4-10.2); Carbon Dioxide 35 mmol/L (22-30); Chloride 97 mmol/L (98-107); Estimated CRCL calculation 106 ml/min; Estimated Glomerular Filt Rate > 60; Glucose 135 mg/dL (75-110); Magnesium 2.3 mg/dL (1.6-2.3); Phosphorus 3.8 mg/dL (2.5-4.5); Potassium 4.5 mmol/L (3.4-5.0); Sodium 138 mmol/L (137-145)
[2021-05-19 10:02] LABS: Vancomycin Trough 9.4 ug/mL (10.0-20.0)
[2021-05-19 10:43] LABS: Hematocrit 46.1 % (42.0-52.0); Hemoglobin 15.1 g/dL (14.0-18.0); Mean Corpuscular HGB Conc 32.8 g/dl (32-36); Mean Corpuscular Hemoglobin 31.3 pg (26-34); Mean Corpuscular Volume 95.4 fl (80-100); Mean Platelet Volume 10.2 fl (7.4-10.4); Platelet Count Result 287 k/mm3 (150-375); Red Blood Count 4.83 M/mm3 (4.6-6.20); Red Cell Distribution Width 13.6 % (11.5-14.5); White Blood Count 16.7 K/mm3 (4.5-10.0)
[2021-05-19 12:20] LABS: Glucose Point of Care 180 mg/dl (65-105)
[2021-05-19] MEDS: FENTANYL 2,500MCG/NS250ML(*CRX 2,500 MCG/250 ML BAG 10 MCG IV CONT (22:17)
[2021-05-19 23:49] LABS: Glucose Point of Care 118 mg/dl (65-105)
[2021-05-20] VITALS (38 sets, daily range): BP systolic 99–139; BP diastolic 57–84; PULSE 58–97; RESP 17–23; TEMP 36.2–37.4; O2SAT 89–98
[2021-05-20] MEDS: PROPOFOL IV EMULSION 100 ML 28.89 MG IV CONT ×2 (00:57→22:04)
[2021-05-20] MEDS: ALBUTEROL SULFATE NEB 2.5 MG/0.5 ML INH 5 MG INHALATION ×4 (02:10→20:06)
[2021-05-20] MEDS: IPRATROPIUM BR 0.02% INH SOLN 0.5 MG/2.5 ML VIAL INHALATION ×4 (02:10→20:06)
[2021-05-20] MEDS: PROPOFOL IV EMULSION 100 ML 32.1 MG IV CONT ×2 (03:59→07:30)
[2021-05-20 04:15] LABS: Hematocrit 46.9 % (42.0-52.0); Hemoglobin 15.5 g/dL (14.0-18.0); Mean Corpuscular Hemoglobin 31.3 pg (26-34); Mean Corpuscular Volume 94.6 fl (80-100); Mean Platelet Volume 9.7 fl (7.4-10.4); Platelet Count Result 285 k/mm3 (150-375); Red Blood Count 4.96 M/mm3 (4.6-6.20); Red Cell Distribution Width 13.4 % (11.5-14.5); White Blood Count 19.5 K/mm3 (4.5-10.0)
[2021-05-20 05:03] LABS: Alveolar/Arterial O2 Gradient 350.1 mmHg; Base Excess ABG 8.6 mEq/l (+/-2.0); Fractional Inspired Oxygen 70 %; HCO3 ABG 34.9 mEq/l (22.0-26.0); Methemoglobin ABG 0.2 %THb (0-1.5); Oxygen Content ABG 21.4 %vol (16.0-22.0); Oxygen Saturation ABG 97.1 % (95.0-100.0); Oxyhemoglobin 96.7 % THb (90.0-100.0); PCO2 ABG 53.4 mmHg (35.0-45.0); PO2 ABG 91.6 mmHg (80.0-100.0); PO2 FiO2 Ratio Arterial Blood 1.31 %; Reduced Hemoglobin 3.1 %THb (0-5.0); Total Hemoglobin 15.7 g/dL (12.0-18.0); pH ABG 7.433 (7.350-7.450)
[2021-05-20 05:04] LABS: Arterial Blood Gas Vent Mode CMV; Arterial Blood Gas Ventilator rate 20 /MIN; Device VENTILATOR; Modified Allen's Test Pass; Site Drawn RIGHT RADIAL
[2021-05-20] MEDS: methylPREDNISolone SOD SUCC 40 MG VIAL IV PUSH ×3 (05:04→20:00)
[2021-05-20 05:05] LABS: Arterial Blood Gas PEEP 5 cmH2O; Arterial Blood Gas Tidal Volume 480 ml
[2021-05-20 06:49] LABS: Anion Gap 6 mmol/L (8-16); Blood Urea Nitrogen 28 mg/dL (9-20); Calcium 8.4 mg/dL (8.4-10.2); Carbon Dioxide 34 mmol/L (22-30); Chloride 96 mmol/L (98-107); Estimated CRCL calculation 106 ml/min; Estimated Glomerular Filt Rate > 60; Glucose 126 mg/dL (75-110); Magnesium 2.3 mg/dL (1.6-2.3); Phosphorus 4.1 mg/dL (2.5-4.5); Potassium 4.2 mmol/L (3.4-5.0); Sodium 136 mmol/L (137-145)
[2021-05-20] MEDS: DORNASE ALFA INH SOLN 1 MG/ML 2.5 ML AMP 2.5 MG INHALATION ×2 (07:32→20:06)
--- NOTE | 2021-05-20 08:22 | WPDINTPN ---
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 - continue Pulmozyme -continue bronchodilators -sedated with fentanyl and propofol infusion, daily sedation vacation -chest x-ray and ABGs reviewed -currently on peep of 5 and 50% FiO2, wean FiO2 to maintain O2 sats greater than 90% -consulted pulmonology (2) Acute exacerbation of chronic obstructive airways disease: Code(s): J44.1 - Chronic obstructive pulmonary disease with (acute) exacerbation Status: Acute Assessment and Plan: Continue steroids, bronchodilators, mechanical ventilation -repeat ABGs improving -wean steroids (3) Tobacco dependence: Code(s): F17.200 - Nicotine dependence, unspecified, uncomplicated Status: Acute Assessment and Plan: Unable to provide tobacco cessation counseling at this time. Will do so once patient is awake (4) Alcohol abuse: Code(s): F10.10 - Alcohol abuse, uncomplicated Status: Acute Assessment and Plan: Continue thiamine and folic acid (5) Elevated troponin: Code(s): R77.8 - Other specified abnormalities of plasma proteins Status: Acute Assessment and Plan: Elevated troponins, trending down. Likely related to her acute respiratory failure COPD exacerbation -echocardiogram 05/16/2020: Mild left ventricular hypertrophy, moderate global hypokinesis, EF 40%, grade 2 diastolic dysfunction, no significant valve disease, no pulmonary hypertension -continue diuresis (6) DVT prophylaxis: Code(s): Z29.9 - Encounter for prophylactic measures, unspecified Status: Acute Assessment and Plan: DVT prophylaxis: Lovenox (7) Dietary counseling and surveillance: Code(s): Z71.3 - Dietary counseling and surveillance Status: Acute Assessment and Plan: Stress ulcer prophylaxis: Protonix Continue tube feeds, tolerating Additional Plan Will update family Code status: Full code Critical care time spent: 33 minutes This dictation may have been done utilizing a voice recognition system. Attempts have been made to correct errors. However, there may be uncorrected grammatical, spelling, and recognition errors present. Due to a high probability of clinically significant, life threatening deterioration, the patient required my highest level of preparedness to intervene emergently and I personally spent this critical care time directly and personally managing the patient. This critical care time included obtaining a history; examining the patient; pulse oximetry; ordering and review of studies; arranging urgent treatment with development of a management plan; evaluation of patient's response to treatment; frequent reassessment; and discussions with other providers. It was exclusive of separately billable procedures and treating other patients and teaching time. Please see Assessment and Plan section and the rest of the note for further information on patient assessment and treatment Subjective Date/time seen: 05/20/21 08:22 Interval history: Reason for consult: Acute respiratory failure, COPD exacerbation 04/19/2021: Patient remains intubated on CMV mode of ventilation, 50% FiO2 and peep of 5. Patient is sedated with fentanyl and propofol infusion, follows simple commands in all extremities. Urine output has been adequate in response to diuresis. Patient is hemodynamically stable, afebrile. Patient tolerating tube feeds, no bowel movement Review of Systems Review of Sys
[2021-05-20] MEDS: FOLIC ACID 1 MG/0.2 ML INJ IV PUSH (09:09)
[2021-05-20] MEDS: ENOXAPARIN 40 MG/0.4 ML SYRINGE SUB-Q (09:09)
[2021-05-20] MEDS: FUROSEMIDE INJ 40 MG/4 ML VIAL 20 MG IV PUSH ×2 (09:09→17:36)
[2021-05-20] MEDS: THIAMINE HCL 200 MG/2 ML VIAL 100 MG IV PUSH (09:10)
[2021-05-20] MEDS: PANTOPRAZOLE SODIUM IV 40 MG VIAL IV PUSH (09:10)
[2021-05-20] MEDS: METOPROLOL SUCCINATE EXT REL 25 MG TABCR PO (09:20)
[2021-05-20] MEDS: LOSARTAN POTASSIUM 25 MG TABLET PO (09:20)
[2021-05-20] MEDS: PROPOFOL IV EMULSION 100 ML 25.68 MG IV CONT ×2 (11:10→14:56)
[2021-05-20 12:13] LABS: Glucose Point of Care 162 mg/dl (65-105)
--- NOTE | 2021-05-20 16:28 | PC.NURSE ---
Patient capable of following commands, and answer yes or no questions throughout the day today. Patient does not want estranged daughter, Aaliyah Becker, to have any medical information or want her to be able to visit. Patient wants the aunt to be the only contact.
[2021-05-20 17:36] LABS: Glucose Point of Care 154 mg/dl (65-105)
[2021-05-20] MEDS: PROPOFOL IV EMULSION 100 ML 22.47 MG IV CONT (18:13)
[2021-05-20] MEDS: LORazepam INJ (*CRX) 2 MG/ML VIAL 1 MG IV PUSH (23:26)
[2021-05-21] VITALS (56 sets, daily range): BP systolic 93–149; BP diastolic 55–76; PULSE 12–98; RESP 10–96; TEMP 36.9–37.2; O2SAT 16–99
[2021-05-21] MEDS: FENTANYL 2,500MCG/NS250ML(*CRX 2,500 MCG/250 ML BAG 7.5 MCG IV CONT (00:13)
[2021-05-21 00:52] LABS: Glucose Point of Care 164 mg/dl (65-105)
[2021-05-21] MEDS: PROPOFOL IV EMULSION 100 ML 22.47 MG IV CONT (01:14)
[2021-05-21] MEDS: IPRATROPIUM BR 0.02% INH SOLN 0.5 MG/2.5 ML VIAL INHALATION ×4 (01:59→20:56)
[2021-05-21] MEDS: ALBUTEROL SULFATE NEB 2.5 MG/0.5 ML INH 5 MG INHALATION ×4 (01:59→20:56)
[2021-05-21 04:34] LABS: Alveolar/Arterial O2 Gradient 162.3 mmHg; Base Excess ABG 3.5 mEq/l (+/-2.0); Carboxyhemoglobin 0.3 % THb (0-2.0); Fractional Inspired Oxygen 45 %; HCO3 ABG 30.3 mEq/l (22.0-26.0); Methemoglobin ABG 0.2 %THb (0-1.5); Oxygen Content ABG 22.1 %vol (16.0-22.0); Oxygen Saturation ABG 97.1 % (95.0-100.0); Oxyhemoglobin 96.2 % THb (90.0-100.0); PCO2 ABG 53.7 mmHg (35.0-45.0); PO2 ABG 97.5 mmHg (80.0-100.0); PO2 FiO2 Ratio Arterial Blood 2.17 %; Reduced Hemoglobin 3.3 %THb (0-5.0); Total Hemoglobin 16.3 g/dL (12.0-18.0); pH ABG 7.369 (7.350-7.450)
[2021-05-21 04:35] LABS: Modified Allen's Test Unable to perform; Site Drawn RIGHT RADIAL
[2021-05-21 04:36] LABS: Arterial Blood Gas PEEP 5 cmH2O; Arterial Blood Gas Tidal Volume 480 ml; Arterial Blood Gas Vent Mode ASSIST CONTROL; Arterial Blood Gas Ventilator rate 20 /MIN; Device VENTILATOR
[2021-05-21 04:50] LABS: Hemoglobin 15.8 g/dL (14.0-18.0); Mean Corpuscular HGB Conc 31.6 g/dl (32-36); Mean Corpuscular Hemoglobin 30.8 pg (26-34); Mean Corpuscular Volume 97.5 fl (80-100); Mean Platelet Volume 9.9 fl (7.4-10.4); Platelet Count Result 275 k/mm3 (150-375); Red Blood Count 5.13 M/mm3 (4.6-6.20); Red Cell Distribution Width 13.5 % (11.5-14.5); White Blood Count 18.8 K/mm3 (4.5-10.0)
[2021-05-21] MEDS: PROPOFOL IV EMULSION 100 ML 19.26 MG IV CONT ×3 (04:58→23:10)
[2021-05-21 05:01] LABS: Anion Gap 7 mmol/L (8-16); Blood Urea Nitrogen 35 mg/dL (9-20); Calcium 8.7 mg/dL (8.4-10.2); Carbon Dioxide 36 mmol/L (22-30); Chloride 94 mmol/L (98-107); Estimated CRCL calculation 105 ml/min; Estimated Glomerular Filt Rate > 60; Glucose 107 mg/dL (75-110); Magnesium 2.4 mg/dL (1.6-2.3); Phosphorus 4.8 mg/dL (2.5-4.5); Potassium 3.8 mmol/L (3.4-5.0); Sodium 137 mmol/L (137-145)
[2021-05-21 05:03] LABS: Glucose Point of Care 87 mg/dl (65-105)
[2021-05-21] MEDS: THIAMINE HCL 200 MG/2 ML VIAL 100 MG IV PUSH (07:57)
[2021-05-21] MEDS: methylPREDNISolone SOD SUCC 40 MG VIAL IV PUSH ×2 (07:58→20:32)
[2021-05-21] MEDS: LOSARTAN POTASSIUM 25 MG TABLET PO (07:58)
[2021-05-21] MEDS: ENOXAPARIN 40 MG/0.4 ML SYRINGE SUB-Q (07:58)
[2021-05-21] MEDS: METOPROLOL SUCCINATE EXT REL 25 MG TABCR PO (07:58)
[2021-05-21] MEDS: PANTOPRAZOLE SODIUM IV 40 MG VIAL IV PUSH (07:59)
[2021-05-21] MEDS: FOLIC ACID 1 MG/0.2 ML INJ IV PUSH (08:02)
--- NOTE | 2021-05-21 08:40 | WPDINTPN ---
Progress Note: A&P Assessment and Plan (1) Acute respiratory failure with hypoxia and hypercapnia: Code(s): J96.01 - Acute respiratory failure with hypoxia; J96.02 - Acute respiratory failure with hypercapnia Status: Acute Assessment and Plan: Acute hypercapnic respiratory failure likely related to COPD exacerbation, likely pneumonia -patient was intubated on 05/14/2021 -continue cefepime (initiated on 05/14), vancomycin stay (initiated on 05/16) -repeat sputum inside sales account representative of the lower respiratory tract - continue Pulmozyme due to continued thick secretions -continue bronchodilators -sedated with fentanyl and propofol infusion, daily sedation vacation, will start to wean and may add Precedex -chest x-ray and ABGs reviewed -currently on peep of 5 and 45% FiO2, wean FiO2 to maintain O2 sats greater than 90% -consulted pulmonology (2) Acute exacerbation of chronic obstructive airways disease: Code(s): J44.1 - Chronic obstructive pulmonary disease with (acute) exacerbation Status: Acute Assessment and Plan: Continue steroids, bronchodilators, mechanical ventilation -repeat ABGs improving -wean steroids to off today (3) Tobacco dependence: Code(s): F17.200 - Nicotine dependence, unspecified, uncomplicated Status: Acute Assessment and Plan: Unable to provide tobacco cessation counseling at this time. Will do so once patient is awake (4) Alcohol abuse: Code(s): F10.10 - Alcohol abuse, uncomplicated Status: Acute Assessment and Plan: Continue thiamine and folic acid (5) Elevated troponin: Code(s): R77.8 - Other specified abnormalities of plasma proteins Status: Acute Assessment and Plan: Elevated troponins, trending down. Likely related to her acute respiratory failure COPD exacerbation -echocardiogram 05/16/2020: Mild left ventricular hypertrophy, moderate global hypokinesis, EF 40%, grade 2 diastolic dysfunction, no significant valve disease, no pulmonary hypertension -continue diuresis (6) DVT prophylaxis: Code(s): Z29.9 - Encounter for prophylactic measures, unspecified Status: Acute Assessment and Plan: DVT prophylaxis: Lovenox (7) Dietary counseling and surveillance: Code(s): Z71.3 - Dietary counseling and surveillance Status: Acute Assessment and Plan: Stress ulcer prophylaxis: Protonix Continue tube feeds, high tube feed residuals, will obtain obstructive series to rule out ileus Additional Plan Will update family Code status: Full code Critical care time spent: 34 minutes This dictation may have been done utilizing a voice recognition system. Attempts have been made to correct errors. However, there may be uncorrected grammatical, spelling, and recognition errors present. Due to a high probability of clinically significant, life threatening deterioration, the patient required my highest level of preparedness to intervene emergently and I personally spent this critical care time directly and personally managing the patient. This critical care time included obtaining a history; examining the patient; pulse oximetry; ordering and review of studies; arranging urgent treatment with development of a management plan; evaluation of patient's response to treatment; frequent reassessment; and discussions with other providers. It was exclusive of separately billable procedures and treating other patients and teaching time. Please see Assessment and Plan section and the rest of the note for further information on patient assessment and treatment Subjective Date/time seen: 05/21/21 08:40 Interval history: Reason for consult: Acute respiratory failure, COPD exacerbation 04/20/2021: Patient remains intubated on CMV mode of ventilation, 45% FiO2 and peep of 5. Patient is sedated with propofol and fentanyl infusion, more awake this morning, nods to questions, follows simple commands in all extremiti
--- NOTE | 2021-05-21 10:02 | PM.IMPN ---
Progress Note: A&P Assessment and Plan (1) Systolic and diastolic CHF, acute: Code(s): I50.41 - Acute combined systolic (congestive) and diastolic (congestive) heart failure Status: Acute Assessment and Plan: Will continue with current treatment diuresis. Repeat chest x-ray in (2) Tracheomalacia: Code(s): J39.8 - Other specified diseases of upper respiratory tract Status: Acute Assessment and Plan: Continue with vent support at present time, extubate when stable. (3) Elevated troponin: Code(s): R77.8 - Other specified abnormalities of plasma proteins Status: Acute Assessment and Plan: Getting better will continue current treatment. (4) Acute respiratory failure with hypoxia and hypercapnia: Code(s): J96.01 - Acute respiratory failure with hypoxia; J96.02 - Acute respiratory failure with hypercapnia Status: Acute Assessment and Plan: Patient is more alert and awake. Still on ventilator. Extubate when stable. (5) Hypoxia: Code(s): R09.02 - Hypoxemia Status: Acute Assessment and Plan: Continue with vent support for now. (6) Alcohol abuse: Code(s): F10.10 - Alcohol abuse, uncomplicated Status: Acute Assessment and Plan: Stable on medication (7) Cardiomegaly: Code(s): I51.7 - Cardiomegaly Status: Acute Assessment and Plan: Stable on medication (8) Acute exacerbation of chronic obstructive airways disease: Code(s): J44.1 - Chronic obstructive pulmonary disease with (acute) exacerbation Status: Acute Assessment and Plan: Continue vent support for now and extubated and stable. (9) Tobacco dependence: Code(s): F17.200 - Nicotine dependence, unspecified, uncomplicated Status: Acute Assessment and Plan: Will give counseling to patient when extubated. Additional Plan # acute respiratory failrue hypoxic hypercapnic, initially stared onbipap but now intudated. continue ICU care as ordered. # COPD exacerbation :steroid, antiboics. # CHF exaceration: no prior diagnosis. cxr with interstitial edema. # tracheomalacia # elevated troponin # tobacco dependence # Alcohol abuse # DVT proph: lovenox Cocaine positive COVVID negative. 05/16: leukoctyosis worsned. remains on full support. vancomycina dded . also on steroid. [id number]. contineu ICU care. 05/18: progress noted. remains intubated and sedated. on antibiotics. cxr reviewe. has interstitial edema. further treamnt per iCU team. apreacite help. 05/21/21:-will continue current plan of care and treatment. Will extubated and patient is elderly more stable. Consults noted. Repeat chest x-ray and labs in the morning. Subjective Date/time seen: 05/21/21 10:02 Patient was seen during the morning rounds today. Patient is intubated. However patient is more awake today. Responds to verbal commands. Denies any chest pain. No abdominal pain. Not in acute distress. Review of Systems Review of Systems: ROS unobtainable: Yes unobtainable due to endotracheal tube Exam Narrative: Exam Narrative: GENERAL: The patient is well developed, on vent HEENT:normocephalic and atrumatic HEART: Regular rate and rhythm without murmur, rubs, or gallops LUNGS: equal air entry,on vent, no respiratory distress ABDOMEN: Soft, positive bowel sounds, non-tender, no organomegaly. SKIN: No rash, no excessive bruising, petechiae, or purpura. NEUROLOGIC: sedated EXTREMITIES: no edema, cyanosis or clubbing Objective Data Vital Signs Vital Signs: Vital Signs - 24 hr 05/20/21 10:54 05/20/21 11:10 05/20/21 12:00 Temperature 36.3 C L Pulse Rate 89 67 68 Respiratory Rate 20 20 Blood Pressure 99/57 L Pulse Oximetry 98 92 05/20/21 13:26 05/20/21 13:29 05/20/21 14:00 Temperature 36.2 C L Pulse Rate 63 64 69 Respiratory Rate 20 20 Blood Pressure 111/61 Pulse Oximetry 92 92 05/20/21 14:56 05/20/21 16:00 0
--- NOTE | 2021-05-21 10:21 | PCDIET ---
ICU Rounding Note: Tube feedings held due to increased residuals. adding Reglan with plan to resume feedings: Vital HP at goal of 40mL/hr. Last recorded weight is 98.1kg which is stable with last review. Bowel Motility: No BM. Patient has order for Miralax PRN, and Reglan being added. RN reports flatus. Labs Reviewed: WBC (18.8), BUN (35), PO4 (4.8), Mg (2.4) Meds Noted: Albuterol, Cefepime, Pulmozyme, Fentanyl, Folic Acid, Atrovent, Ativan, Cozaar, Solu Medrol, Toprol XL, Protonix, Miralax, Propofol (rate of 12.84mL/hr provides 338kcal per day), Thiamine, Vancomycin, Lasix Additional Notes: adding Precedex. Once tube feedings tolerated at goal of 40mL/hr, will likely recommend increasing rate. Following daily in ICU rounds. Assessing/reassessing every Friday/Friday.
[2021-05-21] MEDS: dexmedeTOMIDine 400 MCG/100 ML 400 MCG/100 ML BAG IV CONT (10:29)
[2021-05-21 11:44] LABS: Vancomycin Trough 13.7 ug/mL (10.0-20.0)
[2021-05-21] MEDS: METOCLOPRAMIDE HCL INJ 10 MG/2 ML VIAL 5 MG IV PUSH ×3 (11:45→23:12)
[2021-05-21 12:16] LABS: Glucose Point of Care 114 mg/dl (65-105)
[2021-05-21] MEDS: PROPOFOL IV EMULSION 100 ML 12.84 MG IV CONT (16:20)
[2021-05-21 17:50] LABS: Glucose Point of Care 109 mg/dl (65-105)
[2021-05-21] MEDS: dexmedeTOMIDine 400 MCG/100 ML 400 MCG/100 ML BAG 9.81 MCG IV CONT (20:38)
[2021-05-21] MEDS: DORNASE ALFA INH SOLN 1 MG/ML 2.5 ML AMP 2.5 MG INHALATION (20:56)
[2021-05-21 23:27] LABS: Glucose Point of Care 146 mg/dl (65-105)
[2021-05-22] VITALS (40 sets, daily range): BP systolic 88–121; BP diastolic 40–76; PULSE 61–91; RESP 11–28; TEMP 36.6–37.2; O2SAT 90–96
[2021-05-22] MEDS: ALBUTEROL SULFATE NEB 2.5 MG/0.5 ML INH 5 MG INHALATION ×4 (02:27→20:00)
[2021-05-22] MEDS: IPRATROPIUM BR 0.02% INH SOLN 0.5 MG/2.5 ML VIAL INHALATION ×4 (02:28→20:00)
[2021-05-22] MEDS: LORazepam INJ (*CRX) 2 MG/ML VIAL 1 MG IV PUSH (03:14)
[2021-05-22] MEDS: PROPOFOL IV EMULSION 100 ML 16.05 MG IV CONT (04:25)
[2021-05-22] MEDS: METOCLOPRAMIDE HCL INJ 10 MG/2 ML VIAL 5 MG IV PUSH ×3 (05:05→18:04)
[2021-05-22 05:14] LABS: Glucose Point of Care 112 mg/dl (65-105)
[2021-05-22 05:26] LABS: Alveolar/Arterial O2 Gradient 115.8 mmHg; Base Excess ABG 11.3 mEq/l (+/-2.0); Carboxyhemoglobin 0.1 % THb (0-2.0); Fractional Inspired Oxygen 35 %; HCO3 ABG 36.8 mEq/l (22.0-26.0); Methemoglobin ABG 0.3 %THb (0-1.5); Oxygen Content ABG 20.9 %vol (16.0-22.0); Oxygen Saturation ABG 95.7 % (95.0-100.0); Oxyhemoglobin 94.7 % THb (90.0-100.0); PCO2 ABG 50.6 mmHg (35.0-45.0); PO2 ABG 74.9 mmHg (80.0-100.0); PO2 FiO2 Ratio Arterial Blood 2.14 %; Reduced Hemoglobin 4.9 %THb (0-5.0); Total Hemoglobin 15.7 g/dL (12.0-18.0)
[2021-05-22 05:27] LABS: Arterial Blood Gas Minute Volume 7 LPM; Arterial Blood Gas PEEP 5 cmH2O; Arterial Blood Gas Vent Mode ASV; Device VENTILATOR; Modified Allen's Test Unable to perform; Site Drawn RIGHT RADIAL
[2021-05-22 06:12] LABS: Hematocrit 46.3 % (42.0-52.0); Hemoglobin 15.1 g/dL (14.0-18.0); Mean Corpuscular HGB Conc 32.6 g/dl (32-36); Mean Corpuscular Hemoglobin 31.4 pg (26-34); Mean Corpuscular Volume 96.3 fl (80-100); Mean Platelet Volume 9.8 fl (7.4-10.4); Platelet Count Result 227 k/mm3 (150-375); Red Blood Count 4.81 M/mm3 (4.6-6.20); Red Cell Distribution Width 13.3 % (11.5-14.5); White Blood Count 16.3 K/mm3 (4.5-10.0)
[2021-05-22 06:23] LABS: Anion Gap 5 mmol/L (8-16); Blood Urea Nitrogen 26 mg/dL (9-20); Calcium 8.8 mg/dL (8.4-10.2); Carbon Dioxide 38 mmol/L (22-30); Chloride 95 mmol/L (98-107); Estimated CRCL calculation 105 ml/min; Estimated Glomerular Filt Rate > 60; Glucose 111 mg/dL (75-110); Magnesium 2.3 mg/dL (1.6-2.3); Phosphorus 3.8 mg/dL (2.5-4.5); Potassium 3.9 mmol/L (3.4-5.0); Sodium 138 mmol/L (137-145)
[2021-05-22] MEDS: dexmedeTOMIDine 400 MCG/100 ML 400 MCG/100 ML BAG 7.36 MCG IV CONT (06:46)
[2021-05-22] MEDS: FUROSEMIDE INJ 40 MG/4 ML VIAL 20 MG IV PUSH (07:34)
--- NOTE | 2021-05-22 08:01 | WPDINTPN ---
Progress Note: A&P Assessment and Plan (1) Acute respiratory failure with hypoxia and hypercapnia: Code(s): J96.01 - Acute respiratory failure with hypoxia; J96.02 - Acute respiratory failure with hypercapnia Status: Acute Assessment and Plan: Acute hypercapnic respiratory failure likely related to COPD exacerbation, likely pneumonia -patient was intubated on 05/14/2021 -continue cefepime (initiated on 05/14), vancomycin stay (initiated on 05/16). Will discontinue antibiotics after today -repeat sputum eligibility services representative of the lower respiratory tract - continue Pulmozyme due to continued thick secretions -continue bronchodilators -sedated with Precedex and propofol infusion, will wean propofol to off, continue Precedex infusion -chest x-ray and ABGs reviewed -currently on peep of 5 and 35 % FiO2, -once patient more awake will place him on SBT and evaluate for extubation. Patient may require NIPPV post extubation -continue diuresis (2) Acute exacerbation of chronic obstructive airways disease: Code(s): J44.1 - Chronic obstructive pulmonary disease with (acute) exacerbation Status: Acute Assessment and Plan: Continue , bronchodilators, mechanical ventilation -off steroids (3) Tobacco dependence: Code(s): F17.200 - Nicotine dependence, unspecified, uncomplicated Status: Acute Assessment and Plan: Unable to provide tobacco cessation counseling at this time. Will do so once patient is awake (4) Alcohol abuse: Code(s): F10.10 - Alcohol abuse, uncomplicated Status: Acute Assessment and Plan: Continue thiamine and folic acid (5) Elevated troponin: Code(s): R77.8 - Other specified abnormalities of plasma proteins Status: Acute Assessment and Plan: Elevated troponins, trending down. Likely related to her acute respiratory failure COPD exacerbation -echocardiogram 05/16/2020: Mild left ventricular hypertrophy, moderate global hypokinesis, EF 40%, grade 2 diastolic dysfunction, no significant valve disease, no pulmonary hypertension -continue diuresis (6) DVT prophylaxis: Code(s): Z29.9 - Encounter for prophylactic measures, unspecified Status: Acute Assessment and Plan: DVT prophylaxis: Lovenox (7) Dietary counseling and surveillance: Code(s): Z71.3 - Dietary counseling and surveillance Status: Acute Assessment and Plan: Stress ulcer prophylaxis: Protonix 05/21/2021 patient had high tube feed residuals, obstructive see these with no acute abdominal abnormality. Started him on Reglan, restarted tube feeds and tolerating Additional Plan -Will wean off propofol, continue Precedex -hold tube feeds for possible extubation -will place patient on SBT once he is more awake -DC antibiotics -continue diuresis Code status: Full code Critical care time spent: 33 minutes This dictation may have been done utilizing a voice recognition system. Attempts have been made to correct errors. However, there may be uncorrected grammatical, spelling, and recognition errors present. Due to a high probability of clinically significant, life threatening deterioration, the patient required my highest level of preparedness to intervene emergently and I personally spent this critical care time directly and personally managing the patient. This critical care time included obtaining a history; examining the patient; pulse oximetry; ordering and review of studies; arranging urgent treatment with development of a management plan; evaluation of patient's response to treatment; frequent reassessment; and discussions with other providers. It was exclusive of separately billable procedures and treating other patients and teaching time. Please see Assessment and Plan section and the rest of the note for further information on patient assessment and treatment Subjective Date/time seen: 05/22/21 08:01 Interval history: Reason for consult:
[2021-05-22] MEDS: FOLIC ACID 1 MG/0.2 ML INJ IV PUSH (08:53)
[2021-05-22] MEDS: ENOXAPARIN 40 MG/0.4 ML SYRINGE SUB-Q (08:53)
[2021-05-22] MEDS: THIAMINE HCL 200 MG/2 ML VIAL 100 MG IV PUSH (08:54)
[2021-05-22] MEDS: PANTOPRAZOLE SODIUM IV 40 MG VIAL IV PUSH (08:54)
[2021-05-22] MEDS: METOPROLOL SUCCINATE EXT REL 25 MG TABCR PO (08:54)
[2021-05-22] MEDS: LOSARTAN POTASSIUM 25 MG TABLET PO (08:54)
--- NOTE | 2021-05-22 11:11 | PCDIET ---
Nutrition Follow-Up Complete: Nutrition Diagnosis: Inadequate oral intake related to oral intubation as evidenced by NPO status. Nutrition Goal: Patient to meet estimated nutritional needs. Goal in progress. Tube feedings currently on hold for breathing trial. MD anticipating extubation today. Previously with improved tolerance to feedings and decreasing residuals. Last recorded weight is 96.8 kg which is decreased from last review. +I/O. Bowel Motility: No documented BM. Discussed during rounds. Labs Reviewed: WBC (16.3), Glu (112), BUN (26) Meds Noted: Albuterol, Precedex, Fentanyl, Lasix, Atrovent, Cefepime, Pulmozyme, Folic Acid, Cozaar, Reglan, Toprol XL, Thiamine, Vancomycin, Protonix, Lasix, Miralax (prn) Additional Notes: No skin breakdown reported. Will continue to monitor with same goal. Nutrition Monitoring and Evaluation: Follow up every Friday/Friday.
[2021-05-22] MEDS: dexmedeTOMIDine 400 MCG/100 ML 400 MCG/100 ML BAG 14.72 MCG IV CONT (12:26)
[2021-05-22 12:28] LABS: Base Excess ABG 11.7 mEq/l (+/-2.0); Fractional Inspired Oxygen 35 %; HCO3 ABG 37.4 mEq/l (22.0-26.0); Oxygen Content ABG 21.1 %vol (16.0-22.0); Oxygen Saturation ABG 95.6 % (95.0-100.0); Oxyhemoglobin 94.5 % THb (90.0-100.0); PCO2 ABG 51.3 mmHg (35.0-45.0); PO2 ABG 73.9 mmHg (80.0-100.0); PO2 FiO2 Ratio Arterial Blood 2.11 %; Site Drawn RIGHT BRACHIAL; Total Hemoglobin 15.9 g/dL (12.0-18.0); pH ABG 7.481 (7.350-7.450)
[2021-05-22 12:29] LABS: Arterial Blood Gas PEEP 5 cmH2O; Arterial Blood Gas Pressure Support 8 cmH2O; Arterial Blood Gas Vent Mode SPONTANEOUS; Device VENTILATOR
--- NOTE | 2021-05-22 12:53 | PM.IMPN ---
Progress Note: A&P Assessment and Plan (1) Systolic and diastolic CHF, acute: Code(s): I50.41 - Acute combined systolic (congestive) and diastolic (congestive) heart failure Status: Acute Assessment and Plan: Lasix IV Metoprolol (2) Acute respiratory failure with hypoxia and hypercapnia: Code(s): J96.01 - Acute respiratory failure with hypoxia; J96.02 - Acute respiratory failure with hypercapnia Status: Acute Assessment and Plan: Intubated with mechanical ventilation (3) Acute exacerbation of chronic obstructive airways disease: Code(s): J44.1 - Chronic obstructive pulmonary disease with (acute) exacerbation Status: Acute Assessment and Plan: bronchodilators Subjective Date/time seen: 05/22/21 12:53 Patient is still intubated and sedated Exam Narrative: Exam Narrative: Intubated and sedated Const: General: no acute distress HENMT: Head: normal to inspection Eyes: General: appearance normal, both eyes and all related structures Neck: Neck: normal visual inspection Chest: Chest palpation & inspection: normal inspection of the chest Resp: Effort & Inspection: normal respiratory effort Cardio: Jugular venous distension: no JVD Rate: regular rate GI: Inspection: normal to inspection and non-distended Objective Data Vital Signs Vital Signs: Vital Signs - 24 hr 05/21/21 12:55 05/21/21 13:53 05/21/21 13:57 Temperature Pulse Rate 57 L 57 L 57 L Respiratory Rate 12 15 15 Blood Pressure Pulse Oximetry 05/21/21 14:00 05/21/21 14:36 05/21/21 14:39 Temperature Pulse Rate 57 L 58 L 69 Respiratory Rate 96 H 12 Blood Pressure 99/62 L Pulse Oximetry 16 L 98 05/21/21 15:15 05/21/21 15:18 05/21/21 16:00 Temperature 98.5 F Pulse Rate 61 60 60 Respiratory Rate 16 16 95 H Blood Pressure 93/62 L Pulse Oximetry 94 16 L 05/21/21 16:20 05/21/21 16:35 05/21/21 17:26 Temperature Pulse Rate 59 L 88 90 Respiratory Rate 14 19 Blood Pressure Pulse Oximetry 96 05/21/21 17:51 05/21/21 18:00 05/21/21 19:40 Temperature Pulse Rate 84 84 94 Respiratory Rate 16 20 Blood Pressure 96/55 L Pulse Oximetry 92 05/21/21 20:00 05/21/21 20:38 05/21/21 20:39 Temperature 98.6 F Pulse Rate 73 98 98 Respiratory Rate 15 24 H 24 H Blood Pressure 109/62 Pulse Oximetry 97 05/21/21 20:56 05/21/21 21:03 05/21/21 21:06 Temperature Pulse Rate 71 71 74 Respiratory Rate 12 15 Blood Pressure Pulse Oximetry 96 05/21/21 22:00 05/21/21 23:03 05/21/21 23:10 Temperature Pulse Rate 68 64 71 Respiratory Rate 14 19 Blood Pressure 100/66 Pulse Oximetry 99 96 05/22/21 00:00 05/22/21 02:00 05/22/21 02:02 Temperature 98.8 F Pulse Rate 67 67 67 Respiratory Rate 13 16 Blood Pressure 107/70 106/71 Pulse Oximetry 96 95 96 05/22/21 02:28 05/22/21 02:38 05/22/21 03:17 Temperature Pulse Rate 68 70 70 Respiratory Rate 21 H 19 15 Blood Pressure Pulse Oximetry 05/22/21 04:00 05/22/21 04:25 05/22/21 05:05 Temperature 97.8 F Pulse Rate 70 71 64 Respiratory Rate 16 11 L Blood Pressure 111/76 Pulse Oximetry 94 95 05/22/21 06:00 05/22/21 06:36 05/22/21 06:46 Temperature Pulse Rate 64 67 66 Respiratory Rate 17 15 18 Blood Pressure 106/71 Pulse Oximetry 94 05/22/21 08:00 05/22/21 08:05 05/22/21 08:19 Temperature 98.5 F Pulse Rate 66 63 62 Respiratory Rate 23 H 16 Blood Pressure 121/72 Pulse Oximetry 94 93 05/22/21 08:31 05/22/21 08:54 05/22/21 09:07 Temperature Pulse Rate 67 66 66 Respiratory Rate 28 H 23 H Blood Pressure Pulse Oximetry 05/22/21 09:08 05/22/21 10:00 05/22/21 10:05 Temperature Pulse Rate 66 63 64 Respiratory Rate 23 H 21 H 21 H Blood Pressure 110/61 Pulse Oximetry 90 05/22/21 10:16 05/22/21 10:24 05/22/21 12:26 Temperature Pulse Rate 65 64 65 Respiratory Rate 21 H 20 Blood Pressure
[2021-05-22] MEDS: dexmedeTOMIDine 400 MCG/100 ML 400 MCG/100 ML BAG 12.26 MCG IV CONT (19:49)
[2021-05-22] MEDS: DORNASE ALFA INH SOLN 1 MG/ML 2.5 ML AMP 2.5 MG INHALATION (20:00)
--- NOTE | 2021-05-22 20:36 | PC.NURSE ---
Patient refuses to wear bipap at this time. States he will put it on if he gets short of breath. Patient educated the importance of wearing it. Continue to monitor. Patient currently on 3LNC 19rr, 79HR, 92% resting comfortably.
--- NOTE | 2021-05-22 20:39 | PC.NURSE ---
Spoke with Dr. oCstello, hold evening Lasix dose due to BP 94/64(72).
[2021-05-22] MEDS: ACETAMINOPHEN ELIXIR 325 MG/10.15 ML UDC 650 MG PO (21:09)
[2021-05-23] VITALS (20 sets, daily range): BP systolic 93–128; BP diastolic 61–73; PULSE 60–79; RESP 16–26; TEMP 35.7–36.9; O2SAT 91–98
[2021-05-23] MEDS: ALBUTEROL SULFATE NEB 2.5 MG/0.5 ML INH 5 MG INHALATION ×2 (02:06→09:37)
[2021-05-23] MEDS: IPRATROPIUM BR 0.02% INH SOLN 0.5 MG/2.5 ML VIAL INHALATION ×4 (02:06→20:37)
[2021-05-23 04:30] LABS: Basophils Percent Auto 0.2 % (0.2-1.2); Eosinophils Absolute Auto 0.1 K/mm3 (0-0.3); Eosinophils Percent Auto 0.9 % (0-4.4); Hematocrit 46.5 % (42.0-52.0); Hemoglobin 15.1 g/dL (14.0-18.0); Immature Granulocyte Percent A 0.7 % (0-0.5); Lymphocytes Absolute Auto 1.86 K/mm3 (0.9-3.2); Lymphocytes Percent Auto 13.1 % (18.3-44.2); Mean Corpuscular HGB Conc 32.5 g/dl (32-36); Mean Corpuscular Hemoglobin 31.1 pg (26-34); Mean Corpuscular Volume 95.9 fl (80-100); Monocytes Absolute Auto 1.4 K/mm3 (0.1-0.6); Monocytes Percent Auto 9.9 % (2.6-8.5); Neutrophils Absolute Auto 10.6 K/mm3 (1.3-6.7); Neutrophils Percent Auto 75.2 % (45.5-73.1); Platelet Count Result 233 k/mm3 (150-375); Red Blood Count 4.85 M/mm3 (4.6-6.20); Red Cell Distribution Width 13.2 % (11.5-14.5); White Blood Count 14.2 K/mm3 (4.5-10.0)
[2021-05-23 04:44] LABS: Anion Gap 4 mmol/L (8-16); Blood Urea Nitrogen 22 mg/dL (9-20); Calcium 8.7 mg/dL (8.4-10.2); Carbon Dioxide 38 mmol/L (22-30); Chloride 98 mmol/L (98-107); Estimated CRCL calculation 105 ml/min; Estimated Glomerular Filt Rate > 60; Glucose 100 mg/dL (75-110); Magnesium 2.2 mg/dL (1.6-2.3); Phosphorus 3.4 mg/dL (2.5-4.5); Potassium 3.6 mmol/L (3.4-5.0); Sodium 140 mmol/L (137-145)
[2021-05-23] MEDS: dexmedeTOMIDine 400 MCG/100 ML 400 MCG/100 ML BAG 7.36 MCG IV CONT (04:53)
--- NOTE | 2021-05-23 08:05 | WPDINTPN ---
Progress Note: A&P Assessment and Plan (1) Acute respiratory failure with hypoxia and hypercapnia: Code(s): J96.01 - Acute respiratory failure with hypoxia; J96.02 - Acute respiratory failure with hypercapnia Status: Acute Assessment and Plan: Acute hypercapnic respiratory failure likely related to COPD exacerbation, likely pneumonia -patient was intubated on 05/14/2021 -successfully extubated on 05/22/2021 -status post cefepime and vancomycin -repeat sputum sales representative raw fibers of the lower respiratory tract -continue bronchodilators -discussed with joint setter, recommended ABGs now pCO2 level without wearing BiPAP, will place orders -patient did not been his BiPAP overnight (2) Acute exacerbation of chronic obstructive airways disease: Code(s): J44.1 - Chronic obstructive pulmonary disease with (acute) exacerbation Status: Acute Assessment and Plan: Continue , bronchodilators,ion -off steroids (3) Tobacco dependence: Code(s): F17.200 - Nicotine dependence, unspecified, uncomplicated Status: Acute Assessment and Plan: Discussed with patient regarding cessation of tobacco use, I did discuss with him that given his COPD, smoking would be detrimental to his function -patient stated he is going to try (4) Alcohol abuse: Code(s): F10.10 - Alcohol abuse, uncomplicated Status: Acute Assessment and Plan: Continue thiamine and folic acid (5) Elevated troponin: Code(s): R77.8 - Other specified abnormalities of plasma proteins Status: Acute Assessment and Plan: Elevated troponins, trending down. Likely related to her acute respiratory failure COPD exacerbation -echocardiogram 05/16/2020: Mild left ventricular hypertrophy, moderate global hypokinesis, EF 40%, grade 2 diastolic dysfunction, no significant valve disease, no pulmonary hypertension -continue diuresis (6) DVT prophylaxis: Code(s): Z29.9 - Encounter for prophylactic measures, unspecified Status: Acute Assessment and Plan: DVT prophylaxis: Lovenox (7) Dietary counseling and surveillance: Code(s): Z71.3 - Dietary counseling and surveillance Status: Acute Assessment and Plan: Stress ulcer prophylaxis: Protonix Will have speech therapy evaluate for swallow test, Additional Plan -discontinue Precedex infusion -bedside speech evaluation for swallow test -PT/OT to evaluate the patient -up in chair Code status: Full code Critical care time spent: 31 minutes May be able to transfer out of the ICU today This dictation may have been done utilizing a voice recognition system. Attempts have been made to correct errors. However, there may be uncorrected grammatical, spelling, and recognition errors present. Due to a high probability of clinically significant, life threatening deterioration, the patient required my highest level of preparedness to intervene emergently and I personally spent this critical care time directly and personally managing the patient. This critical care time included obtaining a history; examining the patient; pulse oximetry; ordering and review of studies; arranging urgent treatment with development of a management plan; evaluation of patient's response to treatment; frequent reassessment; and discussions with other providers. It was exclusive of separately billable procedures and treating other patients and teaching time. Please see Assessment and Plan section and the rest of the note for further information on patient assessment and treatment Subjective Date/time seen: 05/23/21 08:05 Interval history: Reason for consult: Acute respiratory failure, COPD exacerbation Extubated on 04/21/2021 04/22/2021: Patient was extubated successfully yesterday. Currently on 3 L nasal cannula with adequate O2 sats. Urine output has been adequate, negative fluid balance, afebrile, hemodynamically stable. Patient states he is hungry, tolerate
[2021-05-23] MEDS: METOPROLOL SUCCINATE EXT REL 25 MG TABCR PO (08:21)
[2021-05-23] MEDS: ENOXAPARIN 40 MG/0.4 ML SYRINGE SUB-Q (08:21)
[2021-05-23] MEDS: PANTOPRAZOLE SODIUM IV 40 MG VIAL IV PUSH (08:22)
[2021-05-23] MEDS: LOSARTAN POTASSIUM 25 MG TABLET PO (08:22)
[2021-05-23] MEDS: FOLIC ACID 1 MG/0.2 ML INJ IV PUSH (08:22)
[2021-05-23] MEDS: THIAMINE HCL 200 MG/2 ML VIAL 100 MG IV PUSH (08:22)
[2021-05-23 08:41] LABS: Alveolar/Arterial O2 Gradient 127.7 mmHg; Base Excess ABG 9.7 mEq/l (+/-2.0); Fractional Inspired Oxygen 36 %; HCO3 ABG 34.8 mEq/l (22.0-26.0); Oxygen Saturation ABG 95.6 % (95.0-100.0); Oxyhemoglobin 94.4 % THb (90.0-100.0); PCO2 ABG 47.6 mmHg (35.0-45.0); PO2 ABG 73.8 mmHg (80.0-100.0); PO2 FiO2 Ratio Arterial Blood 2.05 %; Total Hemoglobin 15.8 g/dL (12.0-18.0); pH ABG 7.482 (7.350-7.450)
[2021-05-23 08:42] LABS: Modified Allen's Test Pass; Site Drawn RIGHT RADIAL
[2021-05-23 08:43] LABS: Device NASAL CANNULA
--- NOTE | 2021-05-23 09:57 | PM.CNPUL ---
Assessment and Plan Assessment and plan (1) Acute exacerbation of chronic obstructive airways disease: Code(s): J44.1 - Chronic obstructive pulmonary disease with (acute) exacerbation Status: Acute Assessment and Plan: Patient with a history of tobacco use and mild to moderate upper lobe predominant centrilobular emphysema on his CT scan of the chest. I do believe he has COPD. I have no PFTs at this time. Currently patient is on albuterol and ipratropium nebulizers Q 6 and I will continue those for now. The patient has no wheezes and is currently off inhaled or systemic steroids and I will continue to leave him off of these medications. I checked a resting arterial blood gas which demonstrated a pH of 7.48/48/74. The patient does not meet requirements for initiation of nocturnal noninvasive ventilation at this time. Patient is currently on 4 L nasal cannula oxygen and will wean for a goal saturation of 90%. Will need overnight oximetry and home O2 assessment prior to discharge. Agree with speech therapy, occupational therapy and physical therapy consultation. Suitable for transfer out of the intensive care unit from my perspective. Discussed with and Camilla. History of Present Illness History of Present Illness Consult date: 05/23/21 Requesting physician: Antolin Sampson MD Reason for consult: COPD Chief complaint: COPD Exacerbation, CP, Elevated Troponin Narrative: this is a new pulmonary consult for COPD this is a 60-year-old man with a history of alcohol abuse, substance abuse, tobacco use and COPD. Patient was admitted for a COPD exacerbation from 612-613 in which he was discharged so that he could attend his 's . Patient returned to the emergency department on 05/14 with acute respiratory failure that did not respond to BiPAP and was intubated. Patient was treated with steroids, antibiotics and bronchodilators and was extubated on 05/22. CTA was negative for PE. SARS was negative. 05/23 I saw the patient today he was awake alert and oriented in no respiratory distress on nasal cannula oxygen. Currently patient denies any fever, chills, rigors, phlegm production or hemoptysis. Patient is currently on 4 L nasal cannula saturations 96%. Currently off antibiotics and systemic steroids. Baseline: Patient uses tobacco from age 11 to [age] at 1 pack per day, total of 49 pack years. Patient denies vaping, marijuana use, cocaine use, methamphetamine use, heroin use. Of note patient's tox screen on 05/14/2021 was positive for cocaine. 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 Prior to getting sick patient stated he had 1 exacerbation requiring hospitalization in last year. Patient has chronic dyspnea on exertion at 1 block. Patient denies ever having pulmonary function testing and states that he does not use any oxygen. DATA: EXAMINATION: CTA chest PE protocol DATE: 05/19/2021 11:04 INDICATION: Hypoxia and pneumonia TECHNIQUE: Computed tomography angiography (CTA) of the chest was performed with 100 mL Omnipaque-350 intravenous contrast timed to evaluate the pulmonary arteries. Coronal maximum intensity projection 3D-reconstructions were created by the technologist. The dose-length product (DLP) was 880.23 mGy-cm. Automated exposure control and iterative reconstruction technique were employed. COMPARISON: 05/14/2021 FINDINGS: The pulmonary arteries are well-opacified. No pulmonary embolism is identified. Sensitivity in the lung bases is somewhat limited by respiratory motion artifact. The endotracheal tube is approximately 8 cm above the fide. The nasogastric tube is in the stomach. No pathologically enlarged thoracic lymph nodes are identified. The heart size is normal. There is dependent atelectasis. No focal airspace opacities are identified. There is no pleural effusion or p
--- NOTE | 2021-05-23 10:08 | PCSTNOTE ---
Please refer to the Bedside Swallow Evaluation in the EMR. Please note, silent aspiration cannot be ruled out at bedside.
--- NOTE | 2021-05-23 10:41 | PCDIET ---
Nutrition Follow-Up Complete: Nutrition Diagnosis: Inadequate oral intake related to oral intubation as evidenced by NPO status. Nutrition Goal: Patient to meet estimated nutritional needs. Goal in progress. Patient extubated and on soft and bite size, level 6, diet, per ENSEMBLE MEMBER recommendation. RN reports breakfast tray was ordered prior to rounding. Last recorded weight is 96.8 kg which is stable with last review. Bowel Motility: No documented BM as of yet. Miralax prn ordered. Labs Reviewed: WBC (14.2), BUN (22) Meds Noted: Albuterol, Reglan, Folic Acid, Toprol XL, Atrovent, Protonix, Cozaar, Thiamine Additional Notes: No documented skin breakdown. Will continue to monitor with same goal. Nutrition Monitoring and Evaluation: Follow up every 3 days.
[2021-05-23] MEDS: ALBUTEROL SULFATE NEB 2.5 MG/0.5 ML INH INHALATION ×2 (13:17→20:38)
--- NOTE | 2021-05-23 20:15 | PC.NURSE ---
Patient ambulated to chair and ambulated in room with walker and standby assistance.
[2021-05-24] VITALS (8 sets, daily range): BP systolic 132; BP diastolic 74; PULSE 73–118; RESP 17–18; TEMP 36.6; O2SAT 90–95
[2021-05-24] MEDS: ALBUTEROL SULFATE NEB 2.5 MG/0.5 ML INH INHALATION ×2 (03:53→09:02)
[2021-05-24] MEDS: IPRATROPIUM BR 0.02% INH SOLN 0.5 MG/2.5 ML VIAL INHALATION ×2 (03:53→09:02)
[2021-05-24] MEDS: THIAMINE HCL 200 MG/2 ML VIAL 100 MG IV PUSH (09:14)
[2021-05-24] MEDS: ENOXAPARIN 40 MG/0.4 ML SYRINGE SUB-Q (09:14)
[2021-05-24] MEDS: PANTOPRAZOLE SODIUM IV 40 MG VIAL IV PUSH (09:15)
[2021-05-24] MEDS: METOPROLOL SUCCINATE EXT REL 25 MG TABCR PO (09:15)
[2021-05-24] MEDS: LOSARTAN POTASSIUM 25 MG TABLET PO (09:16)
[2021-05-24] MEDS: FOLIC ACID 1 MG/0.2 ML INJ IV PUSH (09:33)
--- NOTE | 2021-05-24 11:08 | PCDIET ---
Nutrition Follow-Up Complete: Nutrition Diagnosis: Inadequate oral intake related to oral intubation as evidenced by NPO status. Nutrition Goal: Patient to meet estimated nutritional needs. Goal met. Patient extubated and consuming 100% of meals on soft and bite size diet. Last recorded weight is 96.9 kg which is stable. Bowel Motility: No documented BM. Recommend utilizing Miralax which is ordered prn. Patient also walking with therapy which could help with BM. Labs Reviewed: WBC (14.2), BUN (22) Meds Noted: Albuterol, Folic Acid, Protonix, Atrovent, Cozaar, Toprol XL, Miralax, Thiamine Additional Notes: No reported skin breakdown. Will continue to monitor with same goal. Nutrition Monitoring and Evaluation: Follow up every 3 days.
--- NOTE | 2021-05-24 11:22 | PM.PNPUL ---
Progress Note: A&P Assessment and Plan (1) Acute exacerbation of chronic obstructive airways disease: Code(s): J44.1 - Chronic obstructive pulmonary disease with (acute) exacerbation Status: Acute Assessment and Plan: Patient with a history of tobacco use and mild to moderate upper lobe predominant centrilobular emphysema on his CT scan of the chest. I do believe he has COPD. I have no PFTs at this time. 05/23 Currently patient is on albuterol and ipratropium nebulizers Q 6 and I will continue those for now. The patient has no wheezes and is currently off inhaled or systemic steroids and I will continue to leave him off of these medications. I checked a resting arterial blood gas which demonstrated a pH of 7.48/48/74. The patient does not meet requirements for initiation of nocturnal noninvasive ventilation at this time. Patient is currently on 4 L nasal cannula oxygen and will wean for a goal saturation of 90%. Will need overnight oximetry and home O2 assessment prior to discharge. Agree with speech therapy, occupational therapy and physical therapy consultation. Suitable for transfer out of the intensive care unit from my perspective. 05/24 Patient states that he is back to his baseline and has no wheezing off of systemic steroids at this time. I have ordered a home O2 assessment. From a pulmonary perspective he appears to be at his baseline. Patient is suitable from a pulmonary perspective for discharge on these pulmonary medications. Beta agonist and muscarinic antagonist that insurance will cover: (Anoro Ellipta 62.5/25 at 1 puff Q day, stiolto respimat 2.5/2.5 at 1 puff BID, combivent respimat at 2 puffs Q 4 HR or separate albuterol and atrovent inhalers at 2 puffs Q 4 HR). Oxygen per home O2 assessment. Nocturnal oxygen at the same rate that he requires for adequate saturation with exercise. He will need an outpatient ovewrnight oximetry. If he remains in the hospital today I have ordered an apnea link with just oximetry on 2 L nasal cannula for tonight I had a lengthy discussion regarding tobacco and illicit drug use cessation and the patient promises me that he will quit these substances. Patient can follow in the pulmonary clinic in 2-3 weeks ([phone]) Discussed with Dr. Sampson, Call with questions. Subjective Date/time seen: 05/24/21 11:22 Interval history: this is a 60-year-old man with a history of alcohol abuse, substance abuse, tobacco use and COPD. Patient was admitted for a COPD exacerbation from [id number] in which he was discharged so that he could attend his 's . Patient returned to the emergency department on 05/14 with acute respiratory failure that did not respond to BiPAP and was intubated. Patient was treated with steroids, antibiotics and bronchodilators and was extubated on 05/22. CTA was negative for PE. SARS was negative. 05/23 I saw the patient today he was awake alert and oriented in no respiratory distress on nasal cannula oxygen. Currently patient denies any fever, chills, rigors, phlegm production or hemoptysis. Patient is currently on 4 L nasal cannula saturations 96%. Currently off antibiotics and systemic steroids. 05/24 Patient is awake alert and in no respiratory distress on nasal cannula oxygen. Patient states that he is breathing at his baseline. Saturations on 3 L nasal cannula are 97%. Baseline: Patient uses tobacco from age 11 to [age] at 1 pack per day, total of 49 pack years. Patient denies vaping, marijuana use, cocaine use, methamphetamine use, heroin use. Of note patient's tox screen on 05/14/2021 was positive for cocaine. Patient denies sandblasting, welding, asbestos were, professional painting or steel supervisor mill. Prior to getting sick patient stated he had 1 exacerbation requiring hospitalization in last year. Patient has chronic dyspnea on exertion at 1 block. Patient denies ever having pulmonary function testing and states nai
--- NOTE | 2021-05-24 11:28 | PCRCNOTE ---
HOME O2 EVAL DONE, NO HOME O2 NEEDED, RN NOTIFIED
--- NOTE | 2021-05-24 12:16 | PM.DS ---
DS: Admitting Diagnosis Admitting Diagnosis Admitting Diagnosis: Shortness of breath COPD exacerbation Respiratory failure DS: Discharge Diagnosis Discharge Diagnosis (1) Systolic and diastolic CHF, acute: Code(s): I50.41 - Acute combined systolic (congestive) and diastolic (congestive) heart failure Status: Acute (2) Acute exacerbation of chronic obstructive airways disease: Code(s): J44.1 - Chronic obstructive pulmonary disease with (acute) exacerbation Status: Acute (3) Acute respiratory failure with hypoxia and hypercapnia: Code(s): J96.01 - Acute respiratory failure with hypoxia; J96.02 - Acute respiratory failure with hypercapnia Status: Acute DS: Summary Hospital Course Reason for hospitalization: Respiratory failure Hospital Course: Alonzo Michel is a 60 year old with past medical history of alcohol abuse, COPD, tobacco dependence presented the ED on 05/14/2021 with complains of increasing shortness of breath. Patient was found to be in respiratory failure, acute hypoxic hypercapnic, who was intubated and admitted to the intensive care unit, pulmonary were consulted, after extubation patient respiratory status improved significantly, patient wanted to go home, he did not require any oxygen on exertion at the time of discharge, patient completed his steroids during this hospitalization. Patient seems stable for discharge. Time Spent with Patient Time attestation: Total time spent providing and/or coordinating discharge services: Time spent: Greater than 30 minutes Discharge Plan Discharge Consulting providers: Jt Alexandra Discharging Clinician: Antolin Sampson Anticipated Discharge Date/Time: 05/24/21 12:12 Patient Disposition: Home, Self-Care Activity: as tolerated Diet: regular Patient Instructions: Antibiotic Form, How to Stop Smoking (DC) Stand Alone Forms: General Discharge Information Follow-up/Referrals: Maame Mcdonald MD [Primary Care Provider] - 1 Week Gideon Guerra MD [Physician] - 1 Week Discharge Medications: Continued folic acid 1 mg Tablet 1 mg PO DAILY Qty: 30 RF: 0 thiamine HCl (vitamin B1) [Vitamin B-1] 100 mg Tablet 100 mg PO QAM Qty: 30 RF: 0 albuterol sulfate 90 mcg/actuation HFA aerosol inhaler 1 inh inhalation QID PRN (Reason: shortness of breath or wheezing) Qty: 8.5 RF: 0 losartan 25 mg tablet 25 mg PO DAILY RF: 0 metoprolol succinate 25 mg tablet extended release 24 hr 25 mg PO DAILY RF: 0 furosemide 40 mg tablet 40 mg PO DAILY RF: 0 Discontinued amoxicillin-pot clavulanate [Augmentin] 875-125 mg Tablet 1 tablet PO Q12HR Qty: 12 RF: 0 Date of admission: 05/14/21 14:55 Primary Care Provider: Maame Mcdonald Admitting Provider: Sachin Amaya Attending physician on admission: Antolin Sampson Condition: Stable Quality VTE Prophylaxis VTE prophylaxis: pharmacologic ordered
== END 2021-05-24 13:25 | disposition home or self-care (01) | DRG 130 ==
LOC: ANHED 14:28 → ANHIMU 14:38 → ANHICU 05-19 12:21
PROVIDERS: Emergency Medicine; Internal Medicine; Admitting Provider Internal Medicine; Emergency Provider Emergency Medicine; PCP Family Medicine; Visit Provider Physician Assistant
DX: J96.02 Acute respiratory failure with hypercapnia (principal); J96.01 Acute respiratory failure with hypoxia; J44.1 Chronic obstructive pulmonary disease with (acute) exacerbation; F17.200 Nicotine dependence, unspecified, uncomplicated; F10.10 Alcohol abuse, uncomplicated; Z20.822 Contact with and (suspected) exposure to COVID-19; I50.41 Acute combined systolic (congestive) and diastolic (congestive) heart failure
CPT/HCPCS: 31500; 36415; 36600; 70450; 71045; 71046; 71275; 74019; 80048; 80053; 80202; 80307; 82375; 82805; 82948; 83050; 83735; 83880; 84100; 84145; 84484; 85025; 85027; 85380; 86140; 87040; 87070; 87205; 92610; 93005; 94002; 94003; 94618; 94640; 94660; 96365; 96375; 97110; 97161; 97165; 97530; 97535; 99291; A9270; C8929; C9113; C9803; G0379; J0330; J0692; J1650; J1940; J2060; J2250; J2704; J2765; J2920; J2930; J3010; J3370; J3411; Q9957; Q9967; U0003; U0005

== ENCOUNTER 2024-06-08 19:37 | Emergency (ER) | payer MEDICARE, MEDICAID, SELFPAY ==
--- NOTE | 2024-06-08 19:41 | PC.NURSE ---
Pt was registered and then states that he no longer wants to be seen. States that he coughed out the pistachio on the way here and has a ride on the way to pick him up. Pt at this time is axox4, no respiratory distress, and ambulatory without assistance.
== END 2024-06-08 19:41 | disposition left against medical advice (07) ==
LOC: ANHED 19:50
DX: Z53.21 Procedure and treatment not carried out due to patient leaving prior to being seen by health care provider (principal)
CPT/HCPCS: 99199

== ENCOUNTER 2024-09-05 17:48 | Inpatient (IN) | payer MEDICARE, MEDICAID, SELFPAY ==
[2024-09-05] VITALS (9 sets, daily range): BP systolic 105–132; BP diastolic 63–89; PULSE 72–95; RESP 18–25; TEMP 37.1–37.2; O2SAT 92–98
--- NOTE | ~2024-09-05 | XR_ITS ---
EXAMINATION: XR chest 1V portable Exam Date/Time: 09/05/2024 18:00 CDT HISTORY: chest pain Comparison: None. RESULT: Lines, tubes, and devices: None. Lungs and pleura: Bibasilar streaky opacities. Mild bilateral costophrenic angle blunting. Cardiomediastinal silhouette: Stable. Other: No acute osseous or upper abdominal finding. IMPRESSION: Subsegmental bibasilar scar/atelectasis, infection is not excluded. Possible small lateral effusions versus chronic pleural scarring. Reviewed, dictated and finalized at location K. IMPRESSION: Subsegmental bibasilar scar/atelectasis, infection is not excluded. Possible sm all lateral effusions versus chronic pleural scarring.
--- NOTE | 2024-09-05 17:50 | ECG_ITS ---
Test Date: 2024-09-05 17:56:02 Measurements Intervals [place] Rate: 81 P: 246 NE: 113 QRS: -53 QRSD: 113 T: -87 QT: 420 QTc: 490 Interpretive Statements JUNCTIONAL RHYTHM WITH OCCASIONAL SUPRAVENTRICULAR PREMATURE COMPLEXES LEFT ANTERIOR FASCICULAR BLOCK [QRS AXIS <= -45, QR IN I, RS IN II] INFERIOR MYOCARDIAL INFARCTION , OF INDETERMINATE AGE [40+ ms Q WAVE AND/OR ST/T ABNORMALITY IN II/aVF] MODERATE T-WAVE ABNORMALITY, CONSIDER LATERAL ISCHEMIA [-0.1+ mV T WAVE IN I/aVL/V5/V6] No previous ECG available for comparison Electronically Signed On 09-05-2024 21:08:57 CDT by Lynne Matt M.D.
[2024-09-05 18:33] LABS: Basophils Percent Auto 0.3 % (0.2-1.2); Eosinophils Percent Auto 0.3 % (0-4.4); Hematocrit 44.6 % (42.0-52.0); Hemoglobin 14.9 g/dL (14.0-18.0); Immature Granulocyte Absolute 0.03 K/mm3 (0.00-0.031); Immature Granulocyte Percent A 0.3 % (0-0.5); Lymphocytes Absolute Auto 2.55 K/mm3 (0.9-3.2); Lymphocytes Percent Auto 21.3 % (18.3-44.2); Mean Corpuscular HGB Conc 33.4 g/dl (32-36); Mean Corpuscular Hemoglobin 31.6 pg (26-34); Mean Corpuscular Volume 94.5 fl (80-100); Mean Platelet Volume 10.1 fl (7.4-10.4); Monocytes Absolute Auto 1.2 K/mm3 (0.1-0.6); Monocytes Percent Auto 9.8 % (2.6-8.5); Neutrophils Absolute Auto 8.2 K/mm3 (1.3-6.7); Platelet Count Result 309 k/mm3 (150-375); Red Blood Count 4.72 M/mm3 (4.6-6.20); Red Cell Distribution Width 13.3 % (11.5-14.5)
[2024-09-05 18:45] LABS: Alanine Aminotransferase 19 U/L (6-50); Albumin Level 3.9 g/dL (3.5-5.1); Alkaline Phosphatase 85 U/L (38-126); Anion Gap 7 mmol/L (4-12); Aspartate Amino Transferase 120 U/L (17-59); Bilirubin,Total 0.6 mg/dL (0.2-1.3); Blood Urea Nitrogen 10 mg/dL (9-20); Calcium 8.4 mg/dL (8.4-10.2); Carbon Dioxide 27 mmol/L (22-30); Chloride 99 mmol/L (98-107); Estimated CRCL calculation 110 ml/min; Estimated Glomerular Filt Rate > 60; Glucose 111 mg/dL (65-110); INR 1.1; Lipase 65 U/L (23-300); Potassium 3.9 mmol/L (3.4-5.0); Prothrombin Time 14.3 Seconds (11.1-14.7); Sodium 133 mmol/L (137-145)
[2024-09-05 18:46] LABS: Partial Thromboplastin Time 30.1 Seconds (22.3-36.8)
[2024-09-05] MEDS: NITROGLYCERIN OINTMENT 1 INCH DOSE TRANSDERM (18:52)
[2024-09-05] MEDS: SODIUM CHLORIDE 0.9% IV 500 ML 999 ML IV CONT (18:53)
[2024-09-05] MEDS: ONDANSETRON INJ 4 MG/2 ML VIAL IV PUSH (18:53)
--- NOTE | 2024-09-05 18:59 | ECG_ITS ---
Test Date: 2024-09-05 19:14:56 Measurements Intervals [place] Rate: 74 P: 259 DC: 113 QRS: -23 QRSD: 126 T: -89 QT: 460 QTc: 513 Interpretive Statements JUNCTIONAL RHYTHM WITH OCCASIONAL SUPRAVENTRICULAR PREMATURE COMPLEXES BORDERLINE LEFT AXIS DEVIATION [QRS AXIS < -20] MODERATE INTRAVENTRICULAR CONDUCTION DELAY [110+ ms QRS DURATION] ST DEVIATION AND MODERATE T-WAVE ABNORMALITY, CONSIDER INFERIOR ISCHEMIA [-0.1+ mV T WAVE IN II/aVF] Compared to ECG 09/05/2024 17:56:02 Left anterior fascicular block no longer present T-wave abnormality still present Possible ischemia still present Electronically Signed On 09-05-2024 21:11:38 CDT by Lynne Matt M.D.
[2024-09-05] MEDS: MORPHINE SULFATE (*CRX) 4 MG/ML INJ IV PUSH (19:06)
[2024-09-05] MEDS: LORazepam INJ (*CRX) 2 MG/ML VIAL 1 MG IV PUSH (19:26)
--- NOTE | 2024-09-05 19:44 | PM.IMHP ---
H&P: HPI History of Present Illness Date/Time: 09/05/24 19:44 Chief Complaint: chest pain Narrative: This is a 63-year-old male past medical history significant for COPD/emphysema, alcohol dependence, tobacco dependence, patient also does crack cocaine has lost several love ones recently and has been drinking and smoking and doing crack cocaine to cope with the loss presents to the emergency room due to chest pain localized to the precordial area after doing crack cocaine patient is had poor historian but is very forthcoming with the use of recreation drugs alcohol and tobacco products. At the time of my visit patient rates the pain a 10/10 however seems to be comfortable and is requesting something eat because has not had anything in the whole day. preliminary workup was significant for a troponin of 9 repeat troponin was 27. Urine tox was positive for cocaine. Patient has been admitted for further evaluation management and treatment. EXAMINATION: XR chest 1V portable Exam Date/Time: 09/05/2024 18:00 CDT HISTORY: chest pain Comparison: None. RESULT: Lines, tubes, and devices: None. Lungs and pleura: Bibasilar streaky opacities. Mild bilateral costophrenic angle blunting. Cardiomediastinal silhouette: Stable. Other: No acute osseous or upper abdominal finding. IMPRESSION: Subsegmental bibasilar scar/atelectasis, infection is not excluded. Possible small lateral effusions versus chronic pleural scarring. Review of Systems Review of Systems: Chest pain, using crack cocaine, smoking cigarettes, drinking alcohol PMFSH Past Medical History Medical History Alcohol abuse Chronic obstructive pulmonary disease Tobacco dependence Surgical History Surgical History No history of previous surgery Family History Family History Father Malignant neoplasm of prostate Social History Social History Social History: The patient lives in [facility]. His within the last several weeks. 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 He has smoked up to a pack of cigarettes a day for about 50 years. He drinks 5 to 10 beers, about 5 nights a week. He denies illicit substance abuse but tells me that somebody laced his cigarettes with crack cocaine a couple of days ago. He designates his aunt, Leila Avendano, as his surrogate decision maker. He wishes to be a full code. Smoking packs per day: 0.5 Smoking cigarettes per day: 10.0 Years smoked: 50 Smoking pack-years: 25.00 Smoking status: Current every day smoker Tobacco type: cigarettes Second hand tobacco smoke exposure: Yes Additional smoking assessment comments: Family states patient has been a smoker for 45+ years 1-2 packs per day. Alcohol intake: current Substance use: current Substance use type: crack/cocaine Other substance usage details: Unknown how much patient drinks per day. Do You Feel Safe in your Home?: Yes Lack of Transportation: No Lack of Food: Never True Current Housing: I Have Housing Concerned About Future Housing: No Difficulty Paying Gas/Electric Bills: No Difficulty Paying for Meds: No Currently Unemployed: No Education: Grade School Difficulty w/ Childcare or Family Care: No Gender identity (if verbalized by the patient): Male Spiritual care concerns: No Meds Home Medications and Allergies Home Medications Medication Instructions Recorded Confirmed Type No Home Medications 09/05/24 09/05/24 History Allergies Allergy/AdvReac Type Severity Reaction Status Date / Time No Known Allergies Allergy Verified 05/14/21 11:12 Vital Signs Vital Signs - 24 hr 09/05/24 17:55 09/05/24 17:55
--- NOTE | 2024-09-05 20:10 | ED.CHESTPAIN ---
HPI - Chest Pain General Chief Complaint: Chest Pain Stated Complaint: L sided CP Time Seen by Provider: 09/05/24 18:01 Source: patient and RN notes reviewed Mode of arrival: EMS Limitations: no limitations History of Present Illness HPI narrative: This is 63 year old male with history of CHF who presents for evaluation of chest pain. Patient states that he developed chest pain last night after smoking crack. HE reports left anterior chest pain that radiates to his back down his left arm. THis pain has been constant. He reports shortness of breath. MD complaint: chest pain Onset (ago): day(s) (1) Timing of current episode: constant Pain location: left chest Pain radiation: left arm Treatment prior to arrival: aspirin, nitroglycerin and oxygen Risk Factors Coronary artery disease risk factors: cocaine use Related Data Home Medications Medication Instructions Recorded Confirmed No Home Medications 09/05/24 09/05/24 Allergies Allergy/AdvReac Type Severity Reaction Status Date / Time No Known Allergies Allergy Verified 05/14/21 11:12 Review of Systems Cardiovascular: Cardiovascular: Reports chest pain and Reports radiating jaw, neck or arm pain Respiratory: Respiratory: Reports dyspnea PMFSH Past Medical History Medical History Alcohol abuse Chronic obstructive pulmonary disease Tobacco dependence Surgical History Surgical History No history of previous surgery Family History Family History Father Malignant neoplasm of prostate Social History Social History Social History: The patient lives in [place] [facility]. His within the last several weeks. 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 He has smoked up to a pack of cigarettes a day for about 50 years. He drinks 5 to 10 beers, about 5 nights a week. He denies illicit substance abuse but tells me that somebody laced his cigarettes with crack cocaine a couple of days ago. He designates his aunt, Leila Avendano, as his surrogate decision maker. He wishes to be a full code. Smoking packs per day: 0.5 Smoking cigarettes per day: 10.0 Years smoked: 50 Smoking pack-years: 25.00 Smoking status: Current every day smoker Tobacco type: cigarettes Second hand tobacco smoke exposure: Yes Additional smoking assessment comments: Family states patient has been a smoker for 45+ years 1-2 packs per day. Alcohol intake: current Substance use: current Substance use type: crack/cocaine Other substance usage details: Unknown how much patient drinks per day. Do You Feel Safe in your Home?: Yes Lack of Transportation: No Lack of Food: Never True Current Housing: I Have Housing Concerned About Future Housing: No Difficulty Paying Gas/Electric Bills: No Difficulty Paying for Meds: No Currently Unemployed: No Education: Grade School Difficulty w/ Childcare or Family Care: No Gender identity (if verbalized by the patient): Male Spiritual care concerns: No Exam Const: General: no acute distress and alert Nutritional Appearance: well nourished Orientation/consciousness: patient oriented x3 Limitations: no limitations HENMT: Head: normal to inspection Eyes: EOM: EOMs intact bilaterally Chest: Chest palpation & inspection: normal inspection of the chest Resp: Effort & Inspection: normal respiratory effort Auscultation: clear to auscultation bilaterally Cardio: Rate: regular rate Rhythm: regular rhythm Heart sounds: Murmur heart sound present GI: GI Palp: Yes Soft to palpation, No Tenderness to palpation present (GI), No Guarding due to palpation present (GI), No Rigid due to palpation, No Hernia present, No Palpable mass present and No Rebound ten
[2024-09-05 20:29] LABS: Basophils Absolute Auto 0.1 K/mm3 (0.0-0.1); Basophils Percent Auto 0.4 % (0.2-1.2); Eosinophils Percent Auto 0.3 % (0-4.4); Hematocrit 44.3 % (42.0-52.0); Hemoglobin 14.6 g/dL (14.0-18.0); Immature Granulocyte Absolute 0.04 K/mm3 (0.00-0.031); Immature Granulocyte Percent A 0.3 % (0-0.5); Lymphocytes Absolute Auto 3.13 K/mm3 (0.9-3.2); Lymphocytes Percent Auto 24.2 % (18.3-44.2); Mean Corpuscular Hemoglobin 31.7 pg (26-34); Mean Corpuscular Volume 96.1 fl (80-100); Mean Platelet Volume 9.8 fl (7.4-10.4); Monocytes Absolute Auto 1.3 K/mm3 (0.1-0.6); Neutrophils Absolute Auto 8.4 K/mm3 (1.3-6.7); Neutrophils Percent Auto 64.8 % (45.5-73.1); Platelet Count Result 282 k/mm3 (150-375); Red Blood Count 4.61 M/mm3 (4.6-6.20); Red Cell Distribution Width 13.3 % (11.5-14.5)
--- NOTE | 2024-09-05 20:34 | PC.NURSE ---
spoke with korina from pharmacy. pt stated weight and actual weight different. pharmacy will be redosing the heparin.
[2024-09-05 20:39] LABS: Prothrombin Time 13.7 Seconds (11.1-14.7)
[2024-09-05 20:40] LABS: Partial Thromboplastin Time 21.9 Seconds (22.3-36.8)
[2024-09-05 20:47] LABS: Amphetamine Screen Urine Negative (Negative); Barbiturate Screen Urine Negative (Negative); Benzodiazepines Screen Urine Negative (Negative); Cannabinoid Screen Urine Negative (Negative); Cocaine Screen Urine Positive (Negative); Methadone Screen Urine Negative (Negative); Opiate Screen Urine Positive (Negative); Phencyclidine Screen Urine Negative (Negative)
[2024-09-05] MEDS: HEPARIN SODIUM 5,000 UNITS/ML VIAL 4000 UNITS IV PUSH (21:04)
[2024-09-05] MEDS: HEPARIN SOD/D5W 100 UNITS/ML 25,000 UNITS/250 ML BAG 10 UNITS IV CONT (21:04)
--- NOTE | 2024-09-05 22:12 | ECG_ITS ---
Test Date: 2024-09-05 22:13:18 Measurements Intervals [place] Rate: 80 P: 0 MO: 0 QRS: -33 QRSD: 114 T: 260 QT: 420 QTc: 487 Interpretive Statements SINUS RHYTHM LEFT AXIS DEVIATION [QRS AXIS < -30] MODERATE INTRAVENTRICULAR CONDUCTION DELAY [110+ ms QRS DURATION] ST DEVIATION AND MODERATE T-WAVE ABNORMALITY, CONSIDER I RECENT INFERIOR INFARCTION ABNORMAL ECG Compared to ECG 09/05/2024 19:14:56 NO SIGNIFICANT CHANGE Electronically Signed On 09-06-2024 07:26:25 CDT by Gideon Ragland M.D.
--- NOTE | 2024-09-05 23:06 | PC.NURSE ---
Report received from ED nurse Aye ALLEN.
[2024-09-06] VITALS (20 sets, daily range): BP systolic 101–141; BP diastolic 50–89; PULSE 72–100; RESP 20–22; TEMP 36.3–37; O2SAT 94–99; BMI 28.0
--- NOTE | 2024-09-06 | ECHO_ITS ---
Patient Info Name: Alonzo Michel Age: 63 years : 1960 Gender: Male Ht: 70 in Wt: 203 lbs BSA: 2.15 m2 HR: 77 bpm BP: 124 / 76 mmHg Heart Rhythm: Sinus Rhythm Technical Quality: Fair Exam Date: 09/06/2024 11:40 AM Exam Location: Echo Lab Patient Status: Inpatient Admit Date: 09/05/2024 Staff Ordering Physician: Marcy Gaitan MD Sign Shop Supervisor: Gen Mckeon LAUREN Attending Provider: Marcy Gaitan MD Referring Physician: Kandy MCKEON; Exam Type: CA echo dop color flow w con Study Info Indications I21.4 - Non-ST elevation (NSTEMI) myocardial infarction Complete two-dimensional, color flow and Doppler transthoracic echocardiogram is performed with contrast to opacify the left ventricle and to improve the deliniation of the left ventricle endocardial borders. Contrast/Agitated Saline Contrast/Ag. Saline: Definity Amount: 2.00 ml Existing IV Access: Yes IV Access Condition: patent with no signs of infiltration Summary 1. Mild left ventricular enlargement with akinesis of the posterior segment and severe hypokinesis of the lateral wall. 2. Grade 2 diastolic noncompliance. 3. Left atrial enlargement. 4. Mild mitral and tricuspid regurgitation. 5. Estimated RV systolic pressure 51 mmHg. Left Ventricle Left ventricular chamber dimension is normal. Left ventricular systolic function is mildly reduced, estimated at 45-50%. The left ventricular diastolic function is grade II diastolic dysfunction. Right Ventricle Right ventricular chamber dimension is normal. Left Atria Left atrial chamber dimension is mildly enlarged. Right Atria Right atrial chamber dimension is normal. Aortic Valve The aortic valve is trileaflet. There is mild aortic valve sclerosis. Pulmonic Valve The pulmonic valve is not well visualized. Mitral Valve The mitral valve has normal leaflets. There is mild mitral valve regurgitation. Tricuspid Valve The tricuspid valve leaflets are normal. There is mild tricuspid valve regurgitation. Moderate pulmonary hypertension, estimated pulmonary arterial systolic pressure is Empty. Pericardium/Pleural The pericardium appears normal. Aorta The aortic root size at the sinus of Valsalva is normal. Left Ventricular Outflow Tract Name Value Normal LVOT 2D LVOT Diameter 1.98 cm LVOT Doppler LVOT Peak Gradient 3 mmHg LVOT Mean Gradient 1 mmHg LVOT VTI 12.63 cm LVOT VTI/AV VTI Ratio 0.49 LVOT Stroke Volume 39.07 ml LVOT CO 2.79 l/min LVOT CI 1.30 L/min/m2 Pulmonic Valve Name Value Normal PV Doppler PV Peak Gradient 4 mmHg Mitral Valve Name Value
--- NOTE | 2024-09-06 00:16 | ADMGEN ---
This patient, Alonzo Michel, was admitted to IMU Room 202-01. Patient/family oriented to hospital policies and general routines including ID bracelet, bed and alarms, visiting hours, pain management, procedures, bathroom and other care routines, personal items, smoking policy, room service/diet, and visiting hours. Information on how to activate the Rapid Response Team has been discussed. Patient/Family are encouraged to report perceived risks to care and to ask questions if they do not understand what they are told or what they should do.
--- NOTE | 2024-09-06 01:11 | ECG_ITS ---
Test Date: 2024-09-06 01:26:05 Measurements Intervals [place] Rate: 80 P: 93 TX: 150 QRS: -23 QRSD: 109 T: -64 QT: 388 QTc: 448 Interpretive Statements SINUS RHYTHM LOW QRS VOLTAGE IN EXTREMITY LEADS [QRS DEFLECTION < 0.5 mV IN LIMB LEADS] INFERIOR MYOCARDIAL INFARCTION [40+ ms Q WAVE AND/OR ST/T ABNORMALITY IN II/aVF], PROBABLY RECENT ABNORMAL ECG Compared to ECG 09/05/2024 22:13:18 NO SIGNIFICANT DIFFERENCE Electronically Signed On 09-06-2024 07:27:28 CDT by Gideon Ragland M.D.
[2024-09-06] MEDS: NITROGLYCERIN OINTMENT 1 INCH DOSE TRANSDERM ×2 (02:03→05:55)
[2024-09-06 03:24] LABS: Basophils Percent Auto 0.3 % (0.2-1.2); Eosinophils Absolute Auto 0.1 K/mm3 (0-0.3); Eosinophils Percent Auto 0.5 % (0-4.4); Hematocrit 46.5 % (42.0-52.0); Immature Granulocyte Absolute 0.04 K/mm3 (0.00-0.031); Immature Granulocyte Percent A 0.3 % (0-0.5); Lymphocytes Absolute Auto 2.64 K/mm3 (0.9-3.2); Lymphocytes Percent Auto 20.9 % (18.3-44.2); Mean Corpuscular HGB Conc 32.3 g/dl (32-36); Mean Corpuscular Hemoglobin 31.3 pg (26-34); Mean Corpuscular Volume 97.1 fl (80-100); Mean Platelet Volume 9.9 fl (7.4-10.4); Monocytes Absolute Auto 1.7 K/mm3 (0.1-0.6); Monocytes Percent Auto 13.3 % (2.6-8.5); Neutrophils Absolute Auto 8.2 K/mm3 (1.3-6.7); Neutrophils Percent Auto 64.7 % (45.5-73.1); Platelet Count Result 297 k/mm3 (150-375); Red Blood Count 4.79 M/mm3 (4.6-6.20); Red Cell Distribution Width 13.4 % (11.5-14.5); White Blood Count 12.6 K/mm3 (4.5-10.0)
[2024-09-06 03:36] LABS: Cholesterol 166 mg/dL (0-200); HDL Direct 42 mg/dL; Triglycerides 115 mg/dL (<150)
[2024-09-06 03:47] LABS: LDL Cholesterol Direct 85 mg/dL
[2024-09-06 03:50] LABS: Partial Thromboplastin Time 38.3 Seconds (22.3-36.8)
[2024-09-06] MEDS: HEPARIN SODIUM 5,000 UNITS/ML VIAL 4000 UNITS IV PUSH ×2 (04:34→11:00)
--- NOTE | 2024-09-06 09:25 | PM.CNCAR ---
Assessment and Plan Assessment and plan (1) Acute non-ST elevation myocardial infarction (NSTEMI): Code(s): I21.4 - Non-ST elevation (NSTEMI) myocardial infarction Status: Acute Plan this is a 63-year-old man presenting yesterday with chest pain and obvious evidence on ECG and troponin levels that he has had an infarction. By ECG this appears to have been inferior infarction. Thus far the event is uncomplicated. He of course has risk factors for coronary disease with longstanding cigarette smoking. He also unfortunately has been abusing cocaine. His drug screen was also positive for opiates but he denies any illicit drugs other than cocaine. He is stable clinically at this time on aspirin heparin nitrates and statins. He should undergo coronary angiography to delineate his coronary anatomy after this type of event. At the time of this dictation the procedure is not scheduled yet for today and I will keep him NPO until we determine if the procedure can be scheduled for today or not. This gentleman is not a great candidate for PCI given his history of lack of compliance with medical care/ follow-up, drug abuse I would think he would be a significant compliance risk regarding dual anti-platelet therapy etcetera Gideon Ragland MD [facility] History of Present Illness History of Present Illness Consult date/time: 09/06/24 09:25 Reason For Visit: NSTEMI, cocaine abuse Narrative: This is a 63-year-old man I am seeing today at the request of the hospitalist because of a myocardial infarction which appears to have occurred over this past weekend. The patient states that he was in his usual state of health when on Friday around mid day he started to experience some chest pain he describes this as a substernal to assist to somewhat left precordial burning like pain that at 1 point radiated to his back. Was not associated with any nausea or diaphoresis. No low radiation to any other location in his body. He finally came into the hospital Friday evening and he was found by lab work and ECGs to have had obvious evidence of infarction. He has developed Q-waves in the inferior leads and some lateral T-wave inversion on his ECG but no obvious acute current of injury indicative of STEMI. He does not have any previous history of heart disease but he does not receive any regular medical attention of any kind he is a long-standing cigarette smoker and he also uses cocaine with regularity. He says he was under lot of stress with a couple of deaths in the family and was smoking crack before the onset of these symptoms. His troponin johnson to a high of over 39 and his vital signs in telemetry are stable since admission yesterday. He says there is some very mild residual discomfort but otherwise he is only complaining of being hungry at this time. He has received aspirin, systemic anticoagulation with heparin and nitroglycerin paste as well as statin therapy. He was on no medications prior to admission. He does report a history of a melanoma on his nose that he has had for at least a couple of years for which she has delayed seeking any medical/surgical attention. He also has significant COPD from long-standing cigarette smoking. He does not see a physician for this either Review of Systems Constitutional: Constitutional: Reports lethargy Eyes: Eyes: Reports no additional eye complaints ENT: Reports system reviewed and no additional complaints, except as documented Cardiovascular: Cardiovascular: Reports as per HPI Respiratory: Respiratory: Reports cough and Reports dyspnea on exertion Gastrointestinal: Gastrointestinal: Reports no additional gastrointestinal complaints Musculoskeletal: Musculoskeletal: Reports no additional musculoskeletal complaints Integumentary/Breasts: Skin/Breast: Reports system reviewed and no additional complaints, except as docu Neurologic: Reports system reviewed and no additional complaints, except as docum
[2024-09-06 10:55] LABS: Partial Thromboplastin Time 46.6 Seconds (22.3-36.8)
--- NOTE | 2024-09-06 13:08 | PM.IMPN ---
Progress Note: A&P Assessment and Plan (1) Acute non-ST elevation myocardial infarction (NSTEMI): Code(s): I21.4 - Non-ST elevation (NSTEMI) myocardial infarction Status: Acute Assessment and Plan: Troponin trending up 39.7 Chest pain resolved Patient noted he used cocaine yesterday, a relapse he attributed to losing his girlfriend and brother Contineu heparin infusion, Lipitor no BB at this time incase this is from vasospasm from cocaine A1c, Lipid panel and ECHO pending Cardiology following and considering cardiac cath (2) Crack cocaine use: Code(s): F14.90 - Cocaine use, unspecified, uncomplicated Status: Acute Assessment and Plan: supportive care counseled about drug cessation (3) Alcohol abuse: Code(s): F10.10 - Alcohol abuse, uncomplicated Status: Acute Assessment and Plan: On CINY protocol daily thiamine monitor (4) Tobacco dependence: Code(s): F17.200 - Nicotine dependence, unspecified, uncomplicated Status: Acute Assessment and Plan: nicotine patch in place counseled about cessation Plan DVT prophyalxis on Heparin infusion Subjective Date/time seen: 09/06/24 13:08 Interval history: Patient comfortable at [facility] reported chest pain has resolved cardiology considering possible cardiac cath however wary patient may not be compliant with antiplatelets if there happens to be a PCI with stent. cardiology following Review of Systems Review of Systems: Chest pain, using crack cocaine, smoking cigarettes, drinking alcohol Exam Narrative: General: alert and comfortable Eyes: EOMI, PERRLA ENNT External ears normal, Neck is supple, no masses, Respiratory systems: Clear to auscultation Cardiovascular S1, S2, normal rhythm, no murmur, rub, or gallop; no thrill or palpable murmurs on palpation. Gastrointestinal: soft, non-tender, and non-distended abdomen with no masses; BS present Skin: no rash, lesions, ulcerations, subcutaneous nodules or induration Musculoskeletal: no abnormality and no tenderness, normal ROM Neurologic: Alert and oriented x3, non focal Mental Status Exam: normal affect Objective Data Vital Signs Vital Signs: Vital Signs - 24 hr 09/05/24 17:55 09/05/24 17:55 09/05/24 19:09 Temperature 98.7 F Pulse Rate 81 72 Respiratory Rate 24 H 20 Blood Pressure 106/76 121/83 Pulse Oximetry 98 98 98 Oxygen Delivery Room Air Room Air 09/05/24 21:00 09/05/24 18:00 09/05/24 18:30 Temperature Pulse Rate 73 81 85 Respiratory Rate 21 H 25 H 20 Blood Pressure 119/83 105/63 123/87 Pulse Oximetry 97 92 98 Oxygen Delivery 09/05/24 19:00 09/05/24 20:00 09/05/24 22:00 Temperature 98.9 F Pulse Rate 75 83 95 Respiratory Rate 21 H 21 H 25 H Blood Pressure 121/83 130/85 132/84 Pulse Oximetry 97 94 97 Oxygen Delivery 09/05/24 23:00 09/06/24 00:00 09/06/24 00:16 Temperature 98.2 F Pulse Rate 92 77 99 Respiratory Rate 18 21 H 20 Blood Pressure 126/89 133/82 141/89 H Pulse Oximetry 96 99 99 Oxygen Delivery 09/06/24 00:30 09/06/24 00:21 09/06/24 02:00 Temperature Pulse Rate 89 82 Respiratory Rate Blood Pressure Pulse Oximetry Oxygen Delivery Room Air 09/06/24 03:30 09/06/24 04:00 09/06/24 04:00 Temperature 98.1 F Pulse Rate 97 84 Respiratory Rate 20 Blood Pressure 124/76 Pulse Oximetry 96 Oxygen Delivery Room Air 09/06/24 06:00 09/06/24 08:10 09/06/24 08:00 Temperature 98.6 F Pulse Rate 77 77 77 Respiratory Rate 22 H Blood Pressure 106/70 Pulse Oximetry 94 Oxygen Delivery 09/06/24 10:00 09/06/24 11:49 09/06/24 12:00 Temperature 98.2 F Pulse Rate 79 80 Respiratory Rate 20 Blood Pressure 105/80 Pulse Oximetry 98 Oxygen Delivery Room Air 09/06/24 12:00 Temperature Pulse Rate 78 Respiratory Rate Blood Pressure Pulse Oximetry Oxygen Delivery Intake/Output
[2024-09-06 14:23] LABS: Hemoglobin A1C 5.3 % (<5.7)
[2024-09-06] MEDS: PERFLUTREN LIPID MICROSPHERES 1.5 ML VIAL DILUTED TO 10 ML TOTAL VOLUME IV PUSH (14:53)
--- NOTE | 2024-09-06 14:53 | IVDEFINITY ---
Prior to administration of IV Definity the patient was educated on the risks and benefits of the imaging enhancing agent including potential adverse side effects. The patient verbalized understanding. Allergies were verified. No exclusion criteria were identified and at least one of the following inclusion criteria were met: 1) physician request, 2) patient technically difficult to image (per the [place] [employer] guidelines of two or more segments not discernable within the apical view), or 3) questionable left ventricular function. ?
[2024-09-06] MEDS: HEPARIN SOD/D5W 100 UNITS/ML 25,000 UNITS/250 ML BAG 16 UNITS IV CONT (16:08)
[2024-09-06 17:27] LABS: Partial Thromboplastin Time 66.7 Seconds (22.3-36.8)
[2024-09-06] MEDS: HEPARIN SODIUM 5,000 UNITS/ML VIAL 3000 UNITS IV PUSH (18:28)
[2024-09-07] VITALS (17 sets, daily range): BP systolic 100–127; BP diastolic 56–80; PULSE 66–103; RESP 16–20; TEMP 36.4–37.1; O2SAT 94–100
[2024-09-07 01:37] LABS: Partial Thromboplastin Time 75.4 Seconds (22.3-36.8)
[2024-09-07 04:38] LABS: Basophils Percent Auto 0.3 % (0.2-1.2); Eosinophils Absolute Auto 0.1 K/mm3 (0-0.3); Eosinophils Percent Auto 0.4 % (0-4.4); Hematocrit 44.4 % (42.0-52.0); Hemoglobin 14.6 g/dL (14.0-18.0); Immature Granulocyte Absolute 0.05 K/mm3 (0.00-0.031); Immature Granulocyte Percent A 0.4 % (0-0.5); Lymphocytes Absolute Auto 3.69 K/mm3 (0.9-3.2); Mean Corpuscular HGB Conc 32.9 g/dl (32-36); Mean Corpuscular Hemoglobin 31.7 pg (26-34); Mean Corpuscular Volume 96.5 fl (80-100); Mean Platelet Volume 9.9 fl (7.4-10.4); Monocytes Absolute Auto 1.8 K/mm3 (0.1-0.6); Monocytes Percent Auto 14.7 % (2.6-8.5); Neutrophils Absolute Auto 6.7 K/mm3 (1.3-6.7); Neutrophils Percent Auto 54.2 % (45.5-73.1); Platelet Count Result 257 k/mm3 (150-375); Red Cell Distribution Width 13.4 % (11.5-14.5); White Blood Count 12.3 K/mm3 (4.5-10.0)
[2024-09-07 04:52] LABS: Alanine Aminotransferase 33 U/L (6-50); Albumin Level 3.6 g/dL (3.5-5.1); Alkaline Phosphatase 77 U/L (38-126); Anion Gap 5 mmol/L (4-12); Aspartate Amino Transferase 148 U/L (17-59); Bilirubin,Total 0.6 mg/dL (0.2-1.3); Blood Urea Nitrogen 10 mg/dL (9-20); Calcium 8.5 mg/dL (8.4-10.2); Carbon Dioxide 30 mmol/L (22-30); Chloride 102 mmol/L (98-107); Estimated CRCL calculation 74 ml/min; Estimated Glomerular Filt Rate > 60; Glucose 106 mg/dL (65-110); Magnesium 2.2 mg/dL (1.6-2.3); Potassium 4.1 mmol/L (3.4-5.0); Sodium 137 mmol/L (137-145)
[2024-09-07] MEDS: HEPARIN SOD/D5W 100 UNITS/ML 25,000 UNITS/250 ML BAG 18 UNITS IV CONT (05:09)
--- NOTE | 2024-09-07 08:16 | PM.PNCARD ---
Progress Note: A&P Assessment and Plan (1) Acute non-ST elevation myocardial infarction (NSTEMI): Code(s): I21.4 - Non-ST elevation (NSTEMI) myocardial infarction Status: Acute (2) Crack cocaine use: Code(s): F14.90 - Cocaine use, unspecified, uncomplicated Status: Acute Plan 63-year-old man presenting with chest pain has had a posterolateral myocardial infarction by echo and ECG data. He is asymptomatic following this event. My interventional colleague has decided to avoid doing coronary angiography in this gentleman as stated in my note primarily because of his cocaine intoxication and likelihood that he will not be compliant with anti-platelet therapy should he undergo percutaneous revascularization. He has had an uncomplicated event. Will treat him with aspirin, statin and ARB. we will avoid beta-ramon because of his propensity to use cocaine. Would plan on discharge tomorrow morning if he is stable without any events arrhythmias etc. Gideon Ragland MD [facility] Subjective Date/time seen: date of service:09/07/24 08:16 Interval history: Follow-up visit in this 63-year-old man with: Acute myocardial infarction appears to be a posterolateral vent by ECG and echo. This occurs in the setting of cocaine intoxication. He does have ongoing cigarette smoking as risk for coronary disease as well. Patient feels well this morning offers no complaints. No additional symptoms or concerns telemetry is benign Exam Const: General: comfortable and no acute distress HENMT: Mouth: Yes moist mucous membranes Eyes: Sclera: sclerae normal Neck: Neck: supple and no JVD Resp: Effort & Inspection: normal respiratory effort Auscultation: clear to auscultation bilaterally Cardio: Rate: regular rate Rhythm: regular rhythm Other: no murmur no gallop GI: GI Palp: Yes Soft to palpation Auscultation: normal bowel sounds Skin: General skin exam: normal color Neuro: Other: alert and oriented x3 Extrem: General: normal to inspection Objective Data Vital Signs Vital Signs: Vital Signs - 24 hr 09/06/24 10:00 09/06/24 11:49 09/06/24 12:00 Temperature 36.8 C Pulse Rate 79 80 Respiratory Rate 20 Blood Pressure 105/80 Pulse Oximetry 98 Oxygen Delivery Room Air 09/06/24 12:00 09/06/24 14:00 09/06/24 16:17 Temperature 36.3 C L Pulse Rate 78 96 100 Respiratory Rate 20 Blood Pressure 101/50 L Pulse Oximetry 94 Oxygen Delivery 09/06/24 16:00 09/06/24 16:00 09/06/24 18:00 Temperature Pulse Rate 96 82 Respiratory Rate Blood Pressure Pulse Oximetry Oxygen Delivery Room Air 09/06/24 21:46 09/06/24 20:00 09/06/24 23:44 Temperature 36.4 C 36.5 C Pulse Rate 84 72 Respiratory Rate 20 20 Blood Pressure 105/62 105/63 Pulse Oximetry 97 97 Oxygen Delivery Room Air 09/07/24 00:00 09/07/24 03:48 09/06/24 20:00 Temperature 36.4 C Pulse Rate 66 86 Respiratory Rate 20 Blood Pressure 127/80 Pulse Oximetry 97 Oxygen Delivery Room Air 09/06/24 22:00 09/07/24 00:00 09/07/24 02:00 Temperature Pulse Rate 78 90 77 Respiratory Rate Blood Pressure Pulse Oximetry Oxygen Delivery 09/07/24 04:00 09/07/24 04:00 09/07/24 06:00 Temperature Pulse Rate 71 77 Respiratory Rate Blood Pressure Pulse Oximetry Oxygen Delivery Room Air Intake/Output Intake/Output: Intake & Output 09/04/24 09/05/24 09/06/24 09/07/24 23:59 23:59 23:59 23:59 Intake Total 500 2858.1 1492.3 Output Total 2325 1375 Balance 500 533.1 117.3 Meds/Results Medications: Active Medications Generic Name Dose Route Start Last Admin Trade Name Freq PRN Reason Stop Dose Admin Atorvastatin Calcium 40 mg 09/07/24 09:00 Atorvastatin 40 Mg Tablet PO DAILY WILLA Heparin Sodium (Porcine) 4,000 units 09/05/24 19:49 09/06/24 11:00 Heparin Sodium 5,000 Units/Ml Vial IV PUSH 4,
[2024-09-07] MEDS: THIAMINE HCL 200 MG/2 ML VIAL 100 MG IV PUSH (08:54)
[2024-09-07] MEDS: ATORVASTATIN 40 MG TABLET PO (08:54)
[2024-09-07] MEDS: ASPIRIN 81 MG ENTERIC TABLET PO (08:54)
--- NOTE | 2024-09-07 10:47 | PM.IMPN ---
Progress Note: A&P Assessment and Plan (1) Acute non-ST elevation myocardial infarction (NSTEMI): Code(s): I21.4 - Non-ST elevation (NSTEMI) myocardial infarction Status: Acute Assessment and Plan: Troponin trending up 39.7 Chest pain resolved Patient noted he used cocaine yesterday, a relapse he attributed to losing his girlfriend and brother Contineu heparin infusion, Lipitor no BB at this time incase this is from vasospasm from cocaine A1c, Lipid panel and ECHO pending Cardiology following and considering cardiac cath (2) Crack cocaine use: Code(s): F14.90 - Cocaine use, unspecified, uncomplicated Status: Acute Assessment and Plan: supportive care counseled about drug cessation (3) Alcohol abuse: Code(s): F10.10 - Alcohol abuse, uncomplicated Status: Acute Assessment and Plan: On CIWA protocol daily thiamine monitor (4) Tobacco dependence: Code(s): F17.200 - Nicotine dependence, unspecified, uncomplicated Status: Acute Assessment and Plan: nicotine patch in place counseled about cessation Plan DVT prophyalxis on Heparin infusion Subjective Date/time seen: 09/07/24 10:47 Interval history: Patient was evaluated at bedside with his daughter by side. Patient denies any PMHx including cocaine use but her daughter nodded the head saying its not true. He reports of seeing a primary care physician and long time ago. During the evaluation we can find evidence of bandage in his nose and he reports having melanoma which was diagnosed 3 years ago but never followed up with Dermatology or PCP. Number beta-ramon because of his cocaine use. Cardiology has been evaluated and reported he is not a candidate for cardiac catheterization due to incompliant continuity of medical care. In event of no arrhythmia for 24 hours,patient will be likely discharged tomorrow Review of Systems Review of Systems: Chest pain, using crack cocaine, smoking cigarettes, drinking alcohol Exam Narrative: General: alert and comfortable Eyes: EOMI, PERRLA ENNT External ears normal, Neck is supple, no masses, Respiratory systems: Clear to auscultation Cardiovascular S1, S2, normal rhythm, no murmur, rub, or gallop; no thrill or palpable murmurs on palpation. Gastrointestinal: soft, non-tender, and non-distended abdomen with no masses; BS present Skin: no rash, lesions, ulcerations, subcutaneous nodules or induration Musculoskeletal: no abnormality and no tenderness, normal ROM Neurologic: Alert and oriented x3, non focal Mental Status Exam: normal affect Const: General: comfortable, no acute distress, well developed, alert, awake and average body habitus Nutritional Appearance: average body habitus Orientation/consciousness: patient oriented x3 Other: well-appearing HENMT: Head: normal to inspection, normocephalic and atraumatic Ears: hearing grossly normal bilaterally Face/Nose/Sinus: normal facial exam Face and sinus: normal facial exam Eyes: General: appearance normal, both eyes and all related structures Pupils: Equal, round and reactive pupils present EOM: EOMs intact bilaterally Neck: Neck: full ROM, no lymphadenopathy and no JVD Thyroid: thyroid normal Lymphatic: no lymphadenopathy noted Resp: Effort & Inspection: normal respiratory effort and able to speak in complete sentences Auscultation: clear to auscultation bilaterally Cardio: Jugular venous distension: no JVD Rate: regular rate Rhythm: regular rhythm Heart sounds: S1 normal heart sound present and S2 normal heart sound present : General: Yes deferred Skin: Rashes: no rashes Wounds: no wounds Neuro: General: patient oriented x3 and CN's II-XI intact bilaterally Cranial nerves: Yes CN's II-XII intact bilaterally and Yes Equal, round and reactive pupils present Cognition (Neuro): normal cognition Speech: normal speech Motor exam (neuro): 04/04 james
[2024-09-07] MEDS: LOSARTAN POTASSIUM 25 MG TABLET PO (11:30)
--- NOTE | 2024-09-07 12:20 | PC.NURSE ---
Patient requested gown so that he may ambulate as he feels stiff being confined to his room. Reviewed safety precautions with him and the requirement to stay within the unit for ambulation for his safety. He then requested if using stairs to exercise is an option and if he may visit the [employer] for a magazine. He was informed that he is not to do so given his admitting diagnosis and new medications. He voiced his understanding and agrees with these terms
--- NOTE | 2024-09-07 15:33 | PC.NURSE ---
Patient has repeatedly left the floor despite repeating instructions to not leave the floor for safety and monitoring purposes. MD, Charge Nurse, and Director notified of noncompliance with these instructions. Patient stated he was just walking to the waiting room to try and use the vending machine. He stated I promise I didn't leave, you told me not to. I've still got my heart monitor on and everything, the vending machine didn't even work so it wasn't worth it
[2024-09-08] VITALS: BP 132/76; PULSE 80; PULSE 85; RESP 16; TEMP 37; O2SAT 97
[2024-09-08 02:00] VITALS: PULSE 82
[2024-09-08 04:00] VITALS: BP 105/55; PULSE 76; PULSE 78; RESP 18; TEMP 36.6; O2SAT 98
[2024-09-08 05:25] LABS: Hematocrit 45.2 % (42.0-52.0); Hemoglobin 14.6 g/dL (14.0-18.0); Mean Corpuscular HGB Conc 32.3 g/dl (32-36); Mean Corpuscular Hemoglobin 31.9 pg (26-34); Mean Corpuscular Volume 98.7 fl (80-100); Mean Platelet Volume 10.4 fl (7.4-10.4); Platelet Count Result 278 k/mm3 (150-375); Red Blood Count 4.58 M/mm3 (4.6-6.20); Red Cell Distribution Width 13.2 % (11.5-14.5); White Blood Count 12.5 K/mm3 (4.5-10.0)
[2024-09-08 05:31] LABS: Alanine Aminotransferase 27 U/L (6-50); Albumin Level 3.8 g/dL (3.5-5.1); Alkaline Phosphatase 71 U/L (38-126); Anion Gap 4 mmol/L (4-12); Aspartate Amino Transferase 61 U/L (17-59); Bilirubin,Total 0.4 mg/dL (0.2-1.3); Blood Urea Nitrogen 13 mg/dL (9-20); Calcium 8.4 mg/dL (8.4-10.2); Carbon Dioxide 33 mmol/L (22-30); Chloride 100 mmol/L (98-107); Estimated CRCL calculation 67 ml/min; Estimated Glomerular Filt Rate > 60; Glucose 100 mg/dL (65-110); Potassium 4.3 mmol/L (3.4-5.0); Sodium 137 mmol/L (137-145)
[2024-09-08 06:00] VITALS: PULSE 75
[2024-09-08 07:27] VITALS: BP 111/55; PULSE 76; RESP 20; TEMP 36.7; O2SAT 95
[2024-09-08 08:00] VITALS: PULSE 80
[2024-09-08] MEDS: ASPIRIN 81 MG ENTERIC TABLET PO (08:05)
[2024-09-08] MEDS: ATORVASTATIN 40 MG TABLET PO (08:05)
[2024-09-08] MEDS: LOSARTAN POTASSIUM 25 MG TABLET PO (08:06)
[2024-09-08] MEDS: THIAMINE HCL 200 MG/2 ML VIAL 100 MG IV PUSH (08:06)
[2024-09-08] MEDS: CLOPIDOGREL BISULFATE 300 MG TABLET 600 MG PO (10:01)
--- NOTE | 2024-09-08 10:35 | PM.DS ---
DS: Admitting Diagnosis Discharge Date 09/08/2024 Admitting Diagnosis NSTEMI DS: Discharge Diagnosis Discharge Diagnosis (1) Acute non-ST elevation myocardial infarction (NSTEMI): Code(s): I21.4 - Non-ST elevation (NSTEMI) myocardial infarction Status: Acute Assessment and Plan: Troponin trending up 39.7 Chest pain resolved Patient noted he used cocaine yesterday, a relapse he attributed to losing his girlfriend and brother Contineu heparin infusion, Lipitor no BB at this time incase this is from vasospasm from cocaine A1c, Lipid panel and ECHO pending Cardiology following and considering cardiac cath (2) Crack cocaine use: Code(s): F14.90 - Cocaine use, unspecified, uncomplicated Status: Acute Assessment and Plan: supportive care counseled about drug cessation (3) Alcohol abuse: Code(s): F10.10 - Alcohol abuse, uncomplicated Status: Acute Assessment and Plan: On CIWA protocol daily thiamine monitor (4) Tobacco dependence: Code(s): F17.200 - Nicotine dependence, unspecified, uncomplicated Status: Acute Assessment and Plan: nicotine patch in place counseled about cessation DS: Summary Hospital Course Hospital Course: This is a 63-year-old male past medical history significant for COPD/emphysema, alcohol dependence, tobacco dependence, patient also does crack cocaine has lost several love ones recently and has been drinking and smoking and doing crack cocaine to cope with the loss presents to the emergency room due to chest pain localized to the precordial area after doing crack cocaine patient is had poor historian but is very forthcoming with the use of recreation drugs alcohol and tobacco products. At the time of my visit patient rates the pain a 10/10 however seems to be comfortable and is requesting something eat because has not had anything in the whole day. preliminary workup was significant for a troponin of 9 repeat troponin was 27. Urine tox was positive for cocaine. Cardiology was consulted and reported the patient is not a great candidate for [facility] given his history of lack of compliance with medical care/ follow-up, drug abuse. Also Cardiology avoided doing coronary angiography since the patient will be noncompliant with antiplatelet therapy. Currently patient is treated with aspirin statin, losartan, and Plavix. Because of the propensity to use cocaine patient should avoid beta ramon. Patient's need to follow up with Cardiology, PCP in a week upon discharge further continuation of aspirin and Plavix. Patient also need rehab for his cocaine abuse. Status at Discharge Cognitive/behavioral status at discharge: Stable Time Spent with Patient Time attestation: Total time spent providing and/or coordinating discharge services: For family Exam Narrative: General: alert and comfortable Eyes: EOMI, PERRLA ENNT External ears normal, Neck is supple, no masses, Respiratory systems: Clear to auscultation Cardiovascular S1, S2, normal rhythm, no murmur, rub, or gallop; no thrill or palpable murmurs on palpation. Gastrointestinal: soft, non-tender, and non-distended abdomen with no masses; BS present Skin: no rash, lesions, ulcerations, subcutaneous nodules or induration Musculoskeletal: no abnormality and no tenderness, normal ROM Neurologic: Alert and oriented x3, non focal Mental Status Exam: normal affect Const: General: comfortable, no acute distress, well developed, alert, awake and average body habitus Nutritional Appearance: average body habitus Orientation/consciousness: patient oriented x3 Other: well-appearing HENMT: Head: normal to inspection, normocephalic and atraumatic Ears: hearing grossly normal bilaterally Face/Nose/Sinus: normal facial exam Face and sinus: normal facial exam Eyes: General: appearance normal, both eyes and all related structures Pupils: Equal, round and reactive
[2024-09-08] MEDS: GENTAMICIN SULFATE 0.1% OINT 15 GM TUBE 1 APPLIC TOPICAL (10:43)
== END 2024-09-08 10:46 | disposition home or self-care (01) | DRG 282 ==
LOC: ANHED 18:41 → ANHIMU 22:33
PROVIDERS: Internal Medicine; Admitting Provider Internal Medicine; Emergency Provider General Practice; Visit Provider General Practice
DX: I21.4 Non-ST elevation (NSTEMI) myocardial infarction (principal); J44.9 Chronic obstructive pulmonary disease, unspecified; F10.20 Alcohol dependence, uncomplicated; F17.210 Nicotine dependence, cigarettes, uncomplicated; F14.90 Cocaine use, unspecified, uncomplicated; Z85.820 Personal history of malignant melanoma of skin
CPT/HCPCS: 36415; 71045; 80053; 80061; 80307; 83036; 83690; 83735; 84484; 85025; 85027; 85610; 85730; 93005; 96361; 96374; 96375; 99285; A9270; C8929; J1644; J2060; J2270; J2405; J3411; J7040; Q9957